=== PATIENT | female | born 1945 | race Caucasian/White ===

== ENCOUNTER 2016-04-23 16:48 | Emergency (ER) | payer OTHER ==
[2016-04-23 17:31] VITALS: BP 155/72
[2016-04-23] MEDS ORDERED: PHENERGAN IM ONE (18:25)
[2016-04-23] MEDS ORDERED: NUBAIN IM ONE (18:25)
--- NOTE | 2016-04-23 18:26 | PROVIDER DOCUMENTATION ---
HPI-Headache - General Chief Complaint: Headache Stated Complaint: HEADACHE Time Seen by Provider: 04/23/16 18:17 Source: patient Allergies/Adverse Reactions: Patient Allergies Allergy/AdvReac Type Severity Reaction Status Date / Time butorphanol tartrate * Allergy Severe SHORTNESS Verified 04/23/16 17:30 [From Stadol] OF BREATH prochlorperazine edisylate * Allergy Severe SHORTNESS Verified 04/23/16 17:30 [From Compazine] OF BREATH prochlorperazine maleate * Allergy Severe SHORTNESS Verified 04/23/16 17:30 [From Compazine] OF BREATH codeine [Codeine] Allergy Intermediate HIVES Verified 04/23/16 17:30 ondansetron [From ZOFRAN ODT] Allergy Mild VOMITING Verified 04/23/16 17:30 ketorolac tromethamine * Allergy SWELLING Verified 04/23/16 17:30 [From Toradol] sulfamethoxazole Allergy NAUSEA/VOMI Verified 04/23/16 17:30 [From Bactrim] TING trimethoprim [From Bactrim] Allergy NAUSEA/VOMI Verified 04/23/16 17:30 TING Home Medications: Alprazolam [Xanax] 1 mg PO PRN PRN 12/16/11 Amlodipine Besylate [Norvasc] 10 mg PO DAILY 12/16/11 Calcium Carbonate [Calcium] 600 mg PO BID 12/16/11 Folic Acid 1 mg PO DAILY 12/16/11 Furosemide [Lasix] 40 mg PO DAILY 12/16/11 Levothyroxine Sodium 75 microgm PO DAILY 12/16/11 Magnesium 500 mg PO BID 12/16/11 Naratriptan HCl [Amerge] 2.5 mg PO PRN PRN 12/16/11 Sumatriptan Succinate [Imitrex] 6 mg SQ PRN PRN 12/16/11 Zonisamide [Zonegran] 300 mg PO BID 12/16/11 Aspirin/Calcium Carbonate/Mag [Aspirin Buffered 325 mg Tab] 325 mg PO DAILY Lisinopril 40 mg PO DAILY 08/04/12 Pioglitazone [Actos] 30 mg PO DAILY 10/28/12 Tizanidine HCl [Zanaflex] 4 mg PO HS 09/19/13 Cholecalciferol (Vitamin D3) [Vitamin D3] 2,000 unit PO DAILY 05/09/14 Diazepam [Valium] 2 mg PO TID 11/13/14 Sertraline HCl [Zoloft] 100 mg PO DAILY 03/18/15 Gabapentin 600 mg PO TID 10/03/15 Multivitamins/Minerals [Centrum Silver] 1 each PO DAILY 10/03/15 Lansoprazole [Prevacid] 30 mg PO DAILY 11/07/15 Sitagliptin Phos/Metformin HCl [Janumet Xr 50-1,000 mg Tablet] 1 tab PO BID - History of Present Illness-Headache Nature of Presenting Problem: Pt is a 71 y/o w female c chief complaint of migraine headache x 1 day. Pt states she has a long h/o migraine headaches and is followed by neurology at [facility]. Pt denies any new or different headache symptoms. Pt denies any facial droop, slurred speech, change in coordination. On arrival, pt is in no distress. Review of Systems - Adult - REVIEW OF SYSTEMS - ADULT Constitutional: reports: no symptoms reported. denies: chills, fatique Eyes: reports: no symptoms reported. denies: blurred vision, double vision Ears, Nose, Mouth & Throat: reports: no symptoms reported. denies: ear pain, nose pain Cardiovascular: reports: no symptoms reported. denies: chest pain, orthopnea Respiratory: reports: no symptoms reported. denies: cough, shortness of breath Gastrointestinal: reports: no symptoms reported. denies: abdominal pain, nausea Genitourinary: reports: no symptoms reported. denies: dysuria, hematuria Musculoskeletal: reports: no symptoms reported. denies: bone pain, joint pain, joint swelling Integumentary: reports: no symptoms reported. denies: itching, rash Neurological: reports: headache/migraines. denies: numbness, paresthesia Psychiatric: reports: no symptoms reported. denies: anxiety, emotional problems Endocrine: reports: no symptoms reported. denies: cold intolerance, heat intolerance Hematologic/Lymphatic: reports: no symptoms reported. denies: blood clots, low blood count Allergic/Immunologic: reports: no symptoms reported. denies: allergic reactions , food allergy All Other Systems: Reviewed and Negative Past History - Adult - PAST MEDICAL HISTORY-ADULT Review of Records: reports: Old Records Reviewed, Nursing Assessment Review, Medications Reviewed, Social history reviewed & non-contributory. Major Childhood Illnesses: reports: denies history Cardiovascular: reports: HTN, hyperlipidemia Respiratory: reports: denies history Gastrointestinal: reports: denies history Obstetrical/Gynecological: reports: denies history Genitourinary: reports: denies history Musculoskeletal: reports: denies history Neurological: reports: headaches/migraines, Seizures/Epilepsy Endocrine/Immune: reports: Diabetes, thyroid disorder Other Conditions: reports: denies history Additional History: Frequent visits to the Er for migraines - PRIOR SURGERIES/PROCEDURES Surgical/Procedure History: reports: appendectomy, hysterectomy, joint replacement, other (VSN stimulation ) - IMMUNIZATION STATUS Childhood Immunizations: See Nurse Assessment Flu Vaccine: See Nurse Assessment - FAMILY HISTORY Family History: reviewed, not pertinent - SOCIAL HISTORY Smoking: denies Substance Use: none/never Alcohol Use Frequency: never Living Situation: family Physical Exam- Neurological - Physical Exam-Neuro Initial Vital Signs Reviewed: Yes General Appearance: appears well, alert, no apparent distress Eye Exam: bilateral eye: normal inspection, PERRL, EOMI HENMT: normocephalic/atraumatic, normal ENT inspection, TMs normal, pharynx normal Head Injury: no evidence of injury Neck: non-tender, full range of motion, supple, normal inspection Respiratory: chest non-tender, lungs clear, normal breath sounds, no pleuratic chest pain, no respiratory distress, no accessory muscle use Cardiovascular: normal peripheral pulses, regular rate, rhythm, no edema, no gallop, no JVD, no murmur Abdominal Exam: normal bowel sounds, non tender, soft, no organomegaly, no pulsatile mass Lymphatic: no adenopathy Extremity: normal range of motion, non-tender, normal gait, normal inspection, no pedal edema, no calf tenderness, normal capillary refill, pelvis stable child neurologist Exam: normal hearing, normal speech, PERRL Coordination/Gait: normal finger to nose, normal gait, negative Romberg's sign Motor/Sensory: no motor deficit, no sensory deficit, no pronator drift, negative Babinski's sign Neurologic: child neurologist II-XII nml as tested, no motor/sensory deficits Integumentary: normal color, normal turgor, warm/dry Psych/Mental Status: AL, normal mood/affect, normal thought content, normal thought process, oriented x 3 Progress - PLAN OF CARE/RESULTS Progress/Plan/Lab Results: Orders Category Date Time Status Nalbuphine [Nubain] Med 04/23/16 18:25 Once 10 mg IM NOW ONE Promethazine [Phenergan] Med 04/23/16 18:25 Once 25 mg IM NOW ONE Vital Signs - 24 hr 04/23/16 17:30 Temperature 98.4 F Pulse Rate 66 Respiratory 18 Rate Blood Pressure 155/72 O2 Sat by Pulse 97 Oximetry Departure - Departure Time of Disposition Order: 18:25 DIAGNOSIS: Migraine Qualifiers: Migraine type: unspecified Status migrainosus presence: without status migrainosus Intractability: not intractable Qualified Code(s): G43.909 - Migraine, unspecified, not intractable, without status migrainosus Chronic headaches Qualifiers: Headache type: unspecified Intractability: not intractable Qualified Code(s): R51 - Headache Disposition: HOME 01 Certified Medical Emergency: Emergent Condition: Stable Additional Instructions: FOLLOW UP WITH YOUR NEUROLOGIST. ED Follow Up Instructions: You have been treated by a care provider in the Emergency Department. These instructions are being provided to you so you can have an understanding of how to care for yourself upon discharge. Upon discharge from the Emergency Department, you are responsible for making arrangements for follow-up care by a physician of your choice. Take all prescribed medications as directed. Return to the Emergency Department immediately for any new or worsening symptoms. You may call the Physician Referral phone number at [phone] to obtain a list of Physicians who are taking new patients. Attestation - Physician/ Mid-level Attestation Patient care was provided by Mid-level provider (BOTTOM BUFFER/PA):: Yes Mid-level provider:: Nolan Faith Mid-level documentation review:: The Mid-level provider documentation, treatment plan and medical decision making was reviewed by the physician who agrees with all treatment and medical decision making by the [facility].
== END 2016-04-23 18:40 | disposition home or self-care (01) ==
LOC: P.ED 16:48
DX: G43.909 Migraine, unspecified, not intractable, without status migrainosus (principal); R51 Headache; G89.29 Other chronic pain; I10 Essential (primary) hypertension; E78.5 Hyperlipidemia, unspecified; E11.9 Type 2 diabetes mellitus without complications; Z79.82 Long term (current) use of aspirin; Z79.899 Other long term (current) drug therapy; Z96.60 Presence of unspecified orthopedic joint implant
CPT/HCPCS: 96372; J2300; J2550

== ENCOUNTER 2018-07-09 08:52 | Day surgery (SDC) ==
--- NOTE | 2018-06-25 17:26 | EKG Report ---
Test Performed on : 06/25/2018 5:20:22 PM Test Reason : PAT Blood Pressure : / mmHG Vent. Rate : 093 BPM Atrial Rate : 093 BPM P-R Int : 188 ms QRS Dur : 088 ms QT Int : 384 ms P-R-T Axes : 012 007 045 degrees QTc Int : 477 ms Normal sinus rhythm. Normal ECG When compared with ECG of 29-MAR-2018 06:31, premature atrial complexes. are no longer present Nonspecific T wave abnormality no longer evident in Anterior leads Unconfirmed Result
[2018-06-25 17:37] LABS: URINE SOURCE CLEAN CATCH
[2018-06-25 17:39] LABS: BASO# 0.03 X1000 (0.0-0.2); BASO% 0.2 % (0.0-0.8); EOS# 0.45 X1000 (0.0-0.7); EOS% 3.7 % (0.0-10.0); HEMOGLOBIN 11.9 g/dL (12.0-16.0); IMM GRAN# 0.03 X1000 (0.0-0.04); IMM GRAN% 0.2 % (0.0-0.5); LYMPH# 3.21 X1000 (1.2-3.4); LYMPH% 26.5 % (20.5-51.1); MCH 26.2 PG (27-31); MCHC 31.3 g/dL (33-37); MCV 83.7 FL (81-99); MONO# 1.04 X1000 (0.11-0.59); MONO% 8.6 % (1.7-9.3); NEUT# 7.34 X1000 (1.4-6.5); NEUT% 60.8 % (42.2-75.2); PLT 329 X1000 (130-400); RBC 4.54 XMIL (4.2-5.4)
[2018-06-25 17:46] LABS: INR 1.02; PROTIME 14.2 Seconds (11.0-16.0)
[2018-06-25 17:47] LABS: PTT 26.1 Seconds (22.3-41.8)
[2018-06-25 18:02] LABS: CALCIUM 9.7 mg/dL (8.8-10.2); CREATININE 1.1 mg/dL (0.5-0.9); POTASSIUM 3.8 mmol/L (3.5-5.1)
[2018-06-25 18:07] LABS: BILIRUBIN URINE NEGATIVE (NEGATIVE); BLOOD URINE NEGATIVE (NEGATIVE); COLOR ORANGE; GLUCOSE URINE NEGATIVE (NEGATIVE); KETONE URINE NEGATIVE (NEGATIVE); LEUKOCYTES URINE LARGE (NEGATIVE); NITRITE URINE NEGATIVE (NEGATIVE); PH URINE 5.5; PROTEIN URINE 50 mg/dL (NEGATIVE); SP GRAVITY URINE 1.001; TURBIDITY URINE TURBID (CLEAR); UROBILINOGEN URINE NORMAL (NORMAL)
[2018-06-25 18:09] LABS: UR EPITHELIAL CELLS >10 /HPF (<10); URINE BACTERIA 4+ /HPF; URINE RBC <10 /HPF (<10); URINE WBC TNTC /HPF (<10)
[2018-07-09] MEDS ORDERED: COLACE ONE (09:06)
[2018-07-09] MEDS ORDERED: PEPCID ONE (09:06)
[2018-07-09] MEDS ORDERED: REGLAN ONE (09:07)
[2018-07-09] MEDS ORDERED: LR 1,000 ML ONE (09:07)
[2018-07-09] MEDS ORDERED: LYRICA ONE (09:07)
[2018-07-09] MEDS ORDERED: KEFZOL 2 GM/D5W 2 GM/50 ML IVPB ONE (09:07)
[2018-07-09] MEDS ORDERED: VANCOMYCIN ONE (09:12)
[2018-07-09] MEDS ORDERED: DURAMORPH ONE (09:12)
[2018-07-09] MEDS ORDERED: TORADOL ONE (09:12)
[2018-07-09] MEDS ORDERED: NEOSPORIN G.U. IRRIGANT ONE (09:13)
[2018-07-09] MEDS ORDERED: SODIUM CHLORIDE 0.9% ONE (09:13)
[2018-07-09] MEDS ORDERED: EXPAREL 1.3% ONE (09:13)
[2018-07-09] MEDS ORDERED: SENSORCAINE-MPF 0.5%/EPI 1:200,000 ONE (09:13)
[2018-07-09] MEDS ORDERED: CYKLOKAPRON 1,000 MG/NS 2,000 MG/200 ML IVPB ONE (09:13)
[2018-07-09] MEDS ORDERED: XYLOCAINE-MPF 2% ONE (09:23)
[2018-07-09] MEDS ORDERED: FENTANYL ONE (09:23)
[2018-07-09] MEDS ORDERED: DIPRIVAN 1% ONE (09:24)
[2018-07-09] MEDS ORDERED: QUELICIN (DOSE) ONE (09:24)
[2018-07-09 09:48] LABS: HEMATOCRIT 37.6 % (37.0-47.0); HEMOGLOBIN 11.9 g/dL (12.0-16.0); MCH 25.9 PG (27-31); MCHC 31.6 g/dL (33-37); MCV 81.7 FL (81-99); MPV 10.2 FL (7.4-10.4); RBC 4.6 XMIL (4.2-5.4); RDW 16.3 % (11.5-14.5); WBC 7.13 X1000 (4.8-10.8)
[2018-07-09] MEDS ORDERED: DECADRON ONE (10:18)
[2018-07-09] MEDS ORDERED: OFIRMEV 1000 MG/ISOTONIC SOLN 1,000 MG/100 ML BOTTLE ONE (10:18)
[2018-07-09] MEDS ORDERED: ZOFRAN ONE (10:18)
[2018-07-09] MEDS ORDERED: ATROPINE ONE (10:59)
[2018-07-09 11:28] LABS: URINE SOURCE CATH
[2018-07-09 11:36] LABS: BILIRUBIN URINE NEGATIVE (NEGATIVE); BLOOD URINE NEGATIVE (NEGATIVE); COLOR YELLOW; GLUCOSE URINE NEGATIVE (NEGATIVE); KETONE URINE NEGATIVE (NEGATIVE); LEUKOCYTES URINE NEGATIVE (NEGATIVE); NITRITE URINE NEGATIVE (NEGATIVE); PH URINE 7.5; PROTEIN URINE TRACE mg/dL (NEGATIVE); SP GRAVITY URINE 1.004; TURBIDITY URINE CLEAR (CLEAR); UROBILINOGEN URINE NORMAL (NORMAL)
[2018-07-09 11:37] LABS: UR EPITHELIAL CELLS <10 /HPF (<10); URINE BACTERIA NEGATIVE /HPF; URINE RBC <10 /HPF (<10); URINE WBC <10 /HPF (<10)
[2018-07-09] MEDS ORDERED: NS 1,000 ML ONE (12:56)
[2018-07-09] MEDS: MORPHINE ONE ×3 (12:56→13:08)
[2018-07-09] MEDS ORDERED: ZOFRAN PO PRN (13:00)
[2018-07-09] MEDS ORDERED: MORPHINE IV PRN ×3 (13:00)
[2018-07-09] MEDS ORDERED: OXY IR ONE (13:25)
--- NOTE | 2018-07-09 13:41 | Diag Imaging Result Doc PS360 ---
EXAM: KNEE 1-2 VIEWS-RIGHT INDICATION: post op total knee TECHNIQUE: 2 views COMPARISON: 03/18/2015 FINDINGS: There has been a recent right knee arthroplasty. The arthroplasty hardware is in the expected position. There is no evidence of periprosthetic fracture. Anterior skin andrew and a drainage catheter are in place. IMPRESSION: Satisfactory postoperative knee. Electronically signed by Nolan Davis 07/09/2018 1:38 PM
[2018-07-09] MEDS: NS 1,000 ML IV SCH (13:55)
[2018-07-09] MEDS: OXY IR PO PRN ×2 (14:22→21:35)
[2018-07-09] MEDS: APRESOLINE PO SCH (16:16)
[2018-07-09] MEDS ORDERED: PHENERGAN IV PRN (16:45)
[2018-07-09] MEDS ORDERED: SODIUM CHLORIDE 0.9% INJ PRN (16:45)
[2018-07-09] MEDS: KEFZOL 2 GM/D5W 2 GM/50 ML IVPB IV SCH (17:06)
--- NOTE | 2018-07-09 19:15 | OPERATIVE NOTE ---
PROCEDURE DATE: 07/09/2018 PREOPERATIVE DIAGNOSIS: Degenerative osteoarthritis of the right knee. POSTOPERATIVE DIAGNOSIS: Degenerative osteoarthritis of the right knee. PROCEDURE: Right total knee arthroplasty with DePuy Attune size 5 posterior stabilized femur, a size 5 tibial tray, a 6 mm rotating platform tibial insert, and a 35 mm medialized anatomic patella. SURGEON: Kirby Kaplan MD. FILLING WINDER: YAS Claudio. SECOND VOICE WRITING REPORTER: Maurilio Giang RN. ANESTHESIA: General. INTRAVENOUS FLUIDS: 1800 mL lactated Ringer's. ESTIMATED BLOOD LOSS: 25 mL. TOURNIQUET TIME: 75 minutes at 300 mmHg. COMPLICATIONS: None. INDICATIONS: The patient is a 73-year-old female with chronic history of pain and discomfort in the right knee. She has continued pain and discomfort despite appropriate nonoperative treatment. X-rays revealed degenerative arthritis, and recommendation to proceed with right total knee arthroplasty was offered. Risks and benefits of surgery were explained, including the risks of anesthesia, , bleeding, infection, failure to relieve pain, postoperative stiffness, nerve injury, blood clots, and other imponderables. All questions were answered. The patient and family wished to proceed with surgery. DETAILS OF OPERATION: The patient was taken to the operating room and placed supine on the operating table. Once adequate anesthesia was obtained, the patient's right lower extremity was subsequently prepped and draped in usual sterile fashion. An Esmarch was used to exsanguinate the right lower extremity, and the tourniquet was inflated to 300 mmHg. A standard anterior incision made with a skin knife. Medial and skin envelopes were developed. Standard medial parapatellar arthrotomy was then performed. The patella fat pad was excised. Retractors were then placed. Approximately 1 cm anterior to the PCL insertion, a starting reamer was passed. An intramedullary guide with a distal femoral cutting block was pinned in position. A distal femoral cut was then performed in the standard fashion. The sizing block was placed, and it was determined to be a size 5. Corresponding pins were placed and a size 5 cutting block was pinned in position. Anterior, posterior, and chamfer cuts were then made. Attention was then turned to the proximal tibia where, using the extramedullary guide, the proximal tibia cutting block was pinned in position. This followed by a central reamer and a fin punch. After this had been performed, a box cutting guide was placed on the distal femur. A box cut was performed. The trial femoral component was then placed, and 2 lug holes were drilled. A trial tibial insert was then placed and had good soft tissue balancing. The patella was everted and resected in the standard fashion. A size 35 appeared to the correct size. The holes were drilled. A trial patellar component was then placed and had good patellofemoral tracking. After this had been performed, the trial components were removed. The wound was copiously with antibiotic pulsatile lavage while vancomycin was mixed with cement on the back table. Sequential cementing was then performed, first with the tibial tray and excess cement removed with a Keasbey, followed by the femoral component and excess cement removed with a Keasbey, followed by a trial tibial insert in full extension. Axial loading was maintained while cement cured. Peripheral cement was removed with a small osteotome. While the cement was curing, Exparel was placed in the deep soft tissue as well as the subcutaneous tissue. After the cement had cured, peripheral cement was removed with a small osteotome. The 6 mm rotating platform tibial insert appeared to the correct size. While removing the trial insert, Exparel was placed in the deep posterior capsule. The wound was copiously irrigated once again, and a 6 mm rotating platform tibial insert was then placed and had good soft tissue balance, good range of motion, and good patellofemoral tracking. A 1/8-inch Hemovac drain was placed but was not sewn in. Copious irrigation was then performed again with antibiotic pulsatile lavage. Vicryl #1 was used to repair the arthrotomy, followed by 2-0 Vicryl to repair the subcutaneous tissue, and skin andrew. Adaptic, sterile 4 x 4's, ABD pad, Webril, cryo unit, and Eduardo wrap were applied to the right lower extremity. The patient tolerated the procedure well and was transferred to the recovery room in stable condition. cc: iKrby Kaplan MD
[2018-07-09] MEDS ORDERED: PRAVACHOL PO SCH (21:00)
[2018-07-09] MEDS: PERIDEX MT SCH (21:36)
[2018-07-09] MEDS: GLUCOPHAGE XR PO SCH (21:36)
[2018-07-10] MEDS: NS 1,000 ML IV SCH (01:51)
[2018-07-10] MEDS: KEFZOL 2 GM/D5W 2 GM/50 ML IVPB IV SCH (01:51)
[2018-07-10] MEDS ORDERED: XARELTO PO SCH (06:00)
--- NOTE | 2018-07-10 06:31 | PROGRESS NOTE ---
DATE: 07/10/2018 SUBJECTIVE: The patient is a pleasant, 73-year-old female who is 1 day status post right total knee arthroplasty. She is currently resting comfortably. PHYSICAL EXAMINATION: The patient's right lower extremity wound looks good. There is no signs or symptoms of infection. Calf is soft. She has active dorsiflexion plantar flexion. She is neurovascularly intact distally. LABS: Pending. IMPRESSION: Postoperative day #1 status post right total knee arthroplasty. PLAN: At this point, patient will mobile mobilize with physical therapy and plan on discharging home when she is mobilizing well. cc: Kirby Kaplan MD
[2018-07-10 06:38] LABS: CALCIUM 8.2 mg/dL (8.8-10.2); POTASSIUM 3.9 mmol/L (3.5-5.1)
[2018-07-10] MEDS: OXY IR PO PRN ×3 (07:06→14:14)
[2018-07-10 07:51] LABS: HEMATOCRIT 31.2 % (37.0-47.0); HEMOGLOBIN 9.6 g/dL (12.0-16.0)
[2018-07-10] MEDS ORDERED: SYNTHROID PO SCH (09:00)
[2018-07-10] MEDS ORDERED: NORVASC PO SCH (09:00)
[2018-07-10] MEDS ORDERED: PRINIVIL PO SCH (09:00)
[2018-07-10] MEDS ORDERED: LASIX PO SCH (09:00)
[2018-07-10] MEDS ORDERED: ZOLOFT PO SCH (09:00)
[2018-07-10] MEDS ORDERED: XANAX PO SCH (09:00)
[2018-07-10] MEDS: PERIDEX MT SCH (10:19)
[2018-07-10] MEDS: GLUCOPHAGE XR PO SCH (10:19)
[2018-07-10] MEDS: APRESOLINE PO SCH (10:19)
[2018-07-10 12:10] VITALS: BP 171/53
[2018-07-10] MEDS ORDERED: APRESOLINE PO SCH (15:00)
== END 2018-07-10 15:02 | disposition home health service (06) ==
LOC: OR 08:52 → INTOOBSV 11:19 → DIRADM 11:19 → 4N 11:21 → OR 07-10 15:02
PROVIDERS: ATTEND Orthopaedic Surgery Adult Reconstructive Orthopaedic Surgery
CPT/HCPCS: 73560; 80048; 81001; 82948; 85014; 85018; 85025; 85027; 85610; 85730; 86850; 86900; 86901; 88305; 88311; 93005; 93010; 94760; 94799; 97116; 97162; A9270; C9290; J0131; J0330; J0461; J0690; J1100; J1885; J2270; J2274; J2275; J2405; J3010; J3370; J7030; J7120; Q9974; XXXXX

== ENCOUNTER 2018-10-24 07:46 | Inpatient (IN) ==
[2018-10-24 08:12] LABS: BLOOD TYPE ARTERIAL; SAMPLE BLOOD
[2018-10-24] MEDS ORDERED: LEVOPHED 8 MG in D5 1/2 NS 250 ML IV SCH (08:15)
[2018-10-24 08:24] LABS: BASO# 0.02 X1000 (0.0-0.2); BASO% 0.3 % (0.0-0.8); EOS# 0.18 X1000 (0.0-0.7); EOS% 2.3 % (0.0-10.0); HEMATOCRIT 25.7 % (37.0-47.0); IMM GRAN# 0.04 X1000 (0.0-0.04); IMM GRAN% 0.5 % (0.0-0.5); LYMPH% 23.5 % (20.5-51.1); MCH 25.2 PG (27-31); MCHC 31.1 g/dL (33-37); MCV 80.8 FL (81-99); MONO# 0.64 X1000 (0.11-0.59); MONO% 8.4 % (1.7-9.3); MPV 10.6 FL (7.4-10.4); NEUT# 4.98 X1000 (1.4-6.5); PLT 196 X1000 (130-400); RBC 3.18 XMIL (4.2-5.4); RDW 16.7 % (11.5-14.5); WBC 7.66 X1000 (4.8-10.8)
[2018-10-24] MEDS ORDERED: DOPAMINE 800 MG/D5W 800 MG/250 ML IV.SOLN IV SCH (08:35)
[2018-10-24] MEDS ORDERED: DOPAMINE 800 MG/D5W 800 MG/250 ML IV.SOLN ONE (08:35)
[2018-10-24 08:45] LABS: AGAP 10; ALBUMIN 3.2 g/dL (3.5-5.0); ALKALINE PHOSPHATASE 52 U/L (32-104); BUN 42 mg/dL (8-22); CALCIUM 8.1 mg/dL (8.8-10.2); CHLORIDE 107 mmol/L (98-107); CK PROFILE 72 U/L (24-173); COSMO 294; CREATININE 1.2 mg/dL (0.5-0.9); ESTIMATED GFR 44; GLUCOSE 268 mg/dL (70-104); GOT 19 U/L (10-30); GPT 12 U/L (10-36); POTASSIUM 4.6 mmol/L (3.5-5.1); SODIUM 137 mmol/L (136-145); TCO2 20 mmol/L (25-35); TOTAL BILIRUBIN < 0.15 mg/dL (0.20-1.00); TOTAL PROTEIN 6.1 g/dL (6.3-8.3)
--- NOTE | 2018-10-24 09:51 | Diag Imaging Result Doc PS360 ---
EXAM: CHEST-1 VIEW - 10/24/2018 HISTORY: AMS TECHNIQUE: One view chest COMPARISON: 05/19/2018 FINDINGS: Heart size appears the upper range of normal. There are stable right lower lung granuloma from old granulomatous disease. The lungs otherwise appear grossly clear. There is no substantial pleural effusion or pneumothorax identified. IMPRESSION: No discrete evidence of acute disease. Electronically signed by Enoch Sommers 10/24/2018 9:49 AM
--- NOTE | 2018-10-24 09:55 | Diag Imaging Result Doc PS360 ---
EXAM: CT HEAD W/O CONTRAST - 10/24/2018 HISTORY: ams TECHNIQUE: CT head without contrast COMPARISON: 03/02/2018 FINDINGS: There is no evidence of intracranial hemorrhage, mass effect, midline shift, or hydrocephalus. There is no evidence of infarct, although acute infarcts may not be immediately visible. There is no evidence of skull fracture. There is scattered mild paranasal sinus mucosal thickening noted. IMPRESSION: No visible acute intracranial abnormality. No hemorrhage or mass effect. This exam was performed using automated exposure control, adjustment of mA or kV according to patient size, and/or use of iterative reconstruction technique. Electronically signed by Enoch Sommers 10/24/2018 9:53 AM
[2018-10-24 11:11] LABS: BILIRUBIN URINE NEGATIVE (NEGATIVE); BLOOD URINE NEGATIVE (NEGATIVE); CLARITY CLEAR (CLEAR); COLOR YELLOW; GLUCOSE URINE NEGATIVE (NEGATIVE); KETONE URINE NEGATIVE (NEGATIVE); LEUKOCYTES URINE NEGATIVE (NEGATIVE); NITRITE URINE NEGATIVE (NEGATIVE); PH URINE 6.5; UROBILINOGEN URINE NORMAL
[2018-10-24 11:14] LABS: URINE BACTERIA 1+ /HFP; URINE CAST WHITE CELL PRESENT /LPF; URINE CRYSTAL NONE SEEN /HPF; URINE EPITHELIAL CELLS >10 /HPF (<10); URINE RBC <10 /HPF (<10); URINE SOURCE CATH; URINE YEAST NONE SEEN /HPF
[2018-10-24 11:21] LABS: UR AMPHETAMINES QUAL NONE DETECTED (NONE DETECT); UR BARBITUATES QUAL NONE DETECTED (NONE DETECT); UR BENZODIAZEPIN QUAL PRESUMPTIVE POSITIVE (NONE DETECT); UR CANNABINOIDS QUAL NONE DETECTED (NONE DETECT); UR COCAINE QUAL NONE DETECTED (NONE DETECT); UR METHADONE QUAL NONE DETECTED (NONE DETECT); UR METHAMPHETAMINE QUAL NONE DETECTED (NONE DETECT); UR OPIATES QUAL NONE DETECTED (NONE DETECT); UR OXYCODONE QUAL NONE DETECTED (NONE DETECT); UR PCP QUAL NONE DETECTED (NONE DETECT); UR PROPOXYPHENE QUAL NONE DETECTED (NONE DETECT); UR TCA QUAL NONE DETECTED (NONE DETECT)
[2018-10-24 11:37] LABS: OCCULT BLOOD 1 NEGATIVE (NEGATIVE)
--- NOTE | 2018-10-24 12:23 | PROVIDER DOCUMENTATION ---
This chart was entered by Beth Blackman Scribe, acting as scribe for Vivek Yang MD. HPI-General Adult - General Chief Complaint: Altered Mental Status Stated Complaint: BRADYCARDIA Time Seen by Provider: 10/24/18 07:46 Source: patient, family (), EMS ([facility]) Unable to obtain history due to:: altered Allergies/Adverse Reactions: Patient Allergies Allergy/AdvReac Type Severity Reaction Status Date / Time butorphanol tartrate * Allergy Severe SHORTNESS Verified 07/15/18 13:48 [From Stadol] OF BREATH prochlorperazine edisylate * Allergy Severe SHORTNESS Verified 07/15/18 13:48 [From Compazine] OF BREATH prochlorperazine maleate * Allergy Severe SHORTNESS Verified 07/15/18 13:48 [From Compazine] OF BREATH codeine [Codeine] Allergy Intermediate HIVES Verified 07/15/18 13:48 ondansetron [From ZOFRAN ODT] Allergy Mild VOMITING Verified 07/15/18 13:48 acetaminophen [From Fioricet] Allergy CHEST PAIN Verified 07/15/18 13:48 butalbital [From Fioricet] Allergy CHEST PAIN Verified 07/15/18 13:48 caffeine [From Fioricet] Allergy CHEST PAIN Verified 07/15/18 13:48 ketorolac tromethamine * Allergy SWELLING Verified 07/15/18 13:48 [From Toradol] sulfamethoxazole Allergy NAUSEA/VOMI Verified 07/15/18 13:48 [From Bactrim] TING trimethoprim [From Bactrim] Allergy NAUSEA/VOMI Verified 07/15/18 13:48 TING Home Medications: Home Medication List Medication Instructions Recorded Confirmed Last Taken Type Alprazolam [Xanax] 1 mg PO DAILY 12/16/11 10/24/18 06/29/18 History Amlodipine Besylate [Norvasc] 10 mg PO DAILY 12/16/11 10/24/18 07/08/18 10:00 History Levothyroxine Sodium 75 microgm PO DAILY 12/16/11 10/24/18 07/08/18 10:00 History Zonisamide [Zonegran] 2 cap PO DAILY 12/16/11 10/24/18 07/08/18 18:00 History Aspirin/Calcium Carbonate/Mag 325 mg PO DAILY 08/04/12 10/24/18 06/29/18 History [Aspirin Buffered 325 mg Tab] Lisinopril 40 mg PO DAILY 08/04/12 10/24/18 07/08/18 10:00 History Hydralazine [Apresoline] 50 mg PO TID 01/03/17 10/24/18 07/08/18 18:00 History Furosemide [Lasix] 40 mg PO DAILY 03/29/18 10/24/18 07/08/18 10:00 History PRAVAstatin [Pravachol] 40 mg PO HS 03/29/18 10/24/18 07/08/18 18:00 History Sertraline HCl [Zoloft] 100 mg PO DAILY 03/29/18 10/24/18 07/08/18 10:00 History Metformin HCl [Metformin ER 500 mg PO BID 07/08/18 10/24/18 07/08/18 15:00 History Osmotic] Multivitamin [Multivitamins] 1 dose PO DAILY 07/08/18 10/24/18 07/08/18 10:00 History Oxycodone I.r. [Oxy Ir] 5 mg PO Q4-6H PRN PRN #40 cap 07/10/18 10/24/18 Unknown Rx Rivaroxaban [Xarelto] 10 mg PO DAILY #10 tab 07/10/18 10/24/18 Unknown Rx - History of Present Illness -Gen Adult Nature of Presenting Problems: 73 yowf presents to the ed via ems hypotensive, lethargic, altered and bradycardiac. per ems pt was called in unresponsive to 911 by . ems aos pt had BP-85/42 HR-34 [id number]. ems sts pacing given atropine 1mg NS 1 liter and started another 500cc. when pt came in ed at 0746 dr yang and nurse met ems at bedside with pt. spoke with dr yang and sts pt around 2200 last night got in her computer chair and started watching tv, asked when she was going to bed and her reply "in a while", pt went to bed. he got up to check on her at 1200am and pt was still watching tv and told him "im going to knock you out if you ask me again" then went back to bed. pt sts "a few hrs later I got up to check on her and she was asleep in the computer chair, when I tried to wake her up she would not wake up" sts he tried for almost 5 hrs to wake her up and he could not get her to respond. pt sts "I knew she would fuss at me so I was not wanting to make her mad" pt called 911 after not getting her to respond. sts pt has not complined of any pain or any issues recently and has been acting her normal self ED pt responds to painful stimuli and is slow to answer but answers correctly when she wakes up. pt was incontinent of feces on exam and has a BP 109/53 off the pacer. HR-42. pt arrived in ed covered in feces and bed bugs. pt is unkempt and has foul odor to her. Location of Pain/Injury: reports: none Pain Radiation: reports: no radiation Quality of Pain: reports: none Severity: reports: severe Onset/Duration: reports: this morning (early hrs unsure exact time) Timing: reports: still present, constant Context/Activities at Onset: reports: light activity Modifying Factors: improves with: nothing Associated Symptoms: reports: diarrhea, genitourinary problems, syncope, weakness. denies: back/neck pain, chest pain, cough, fever/chills, nausea, seizure, shortness of breath, vomiting Similar Symptoms Previously?: No Recently seen or treated by another doctor?: No - Diabetes Related Context Context: reports: high blood sugar (359) Review of Systems - Adult - REVIEW OF SYSTEMS - ADULT ROS:: ROS per family Constitutional: denies: chills, fever Eyes: reports: no symptoms reported Ears, Nose, Mouth & Throat: reports: no symptoms reported Cardiovascular: reports: see HPI, syncope. denies: chest pain Respiratory: denies: shortness of breath, wheezing Gastrointestinal: reports: see HPI, diarrhea. denies: nausea, vomiting Genitourinary: reports: see HPI, incontinence Musculoskeletal: reports: no symptoms reported Integumentary: reports: no symptoms reported Neurological: reports: tremors. denies: ataxia, dizziness/vertigo, headache/migraines, slurred speech Psychiatric: reports: no symptoms reported Endocrine: reports: no symptoms reported Hematologic/Lymphatic: reports: no symptoms reported Allergic/Immunologic: reports: no symptoms reported All Other Systems: Reviewed and Negative Past History - Adult - PAST MEDICAL HISTORY-ADULT Review of Records: reports: Old Records Reviewed, Nursing Assessment Review, Medications Reviewed, Social history reviewed & non-contributory. Major Childhood Illnesses: reports: denies history Cardiovascular: reports: HTN, hyperlipidemia Respiratory: reports: denies history Gastrointestinal: reports: denies history Obstetrical/Gynecological: reports: denies history Genitourinary: reports: denies history Musculoskeletal: reports: chronic pain, intervertebral disc disease, neck/back injury Neurological: reports: headaches/migraines, Seizures/Epilepsy Endocrine/Immune: reports: Diabetes, thyroid disorder Other Conditions: reports: denies history Additional History: Frequent visits to the Er for migraines - PRIOR SURGERIES/PROCEDURES Surgical/Procedure History: reports: appendectomy, hysterectomy, joint replacement, other (VSN stimulation ) - IMMUNIZATION STATUS Childhood Immunizations: See Nurse Assessment Flu Vaccine: See Nurse Assessment - FAMILY HISTORY Family History: reviewed, not pertinent - SOCIAL HISTORY Smoking: quit greater than 1 year Substance Use: denies Living Situation: family Physical Exam-General - PHYSICAL EXAM-ADULT Exam Limited by: pt is lethargic and slow to answer Initial Vital Signs Reviewed: Yes (critical) - CONSTITUTIONAL General Appearance: moderate distress, obese, lethargic, slow to respond - EYES Eyes: other (pupils are reactive mid point, pt received Narcan with no impr ovement) - HEAD, EARS, NOSE, MOUTH & THROAT HENMT: negative: moist mucous membranes (dry oral) - NECK Neck: normal inspection - RESPIRATORY Respiratory: chest non-tender, lungs clear, normal breath sounds - CARDIOVASCULAR Cardiovascular: bradycardia (35) - CHEST (BREASTS) Chest/Breast: deferred - GASTROINTESTINAL (ABDOMEN) Abdominal Exam: soft - LYMPHATIC Lymphatic: no adenopathy - MUSCULOSKELETAL Extremity: swelling (BLE edema) - SKIN Integumentary: pallor - PSYCHIATRIC Psych/Mental Status: other (lethargic and slow to answer but when pt answers it is correct answers) Progress - PLAN OF CARE/RESULTS Progress/Plan/Lab Results: Vital Signs - 8 hr 10/24/18 07:45 Pulse Rate 35 L Respiratory Rate 16 Blood Pressure 79/66 O2 Sat by Pulse Oximetry 100 Laboratory Results - last 24 hr 10/24/18 10/24/18 10/24/18 08:20 08:20 08:20 WBC 7.66 RBC 3.18 L Hgb 8.0 L Hct 25.7 L MCV 80.8 L MCH 25.2 L MCHC 31.1 L RDW Std Deviation 16.7 H Plt Count 196 MPV 10.6 H Immature Gran % (Auto) 0.5 Neut % (Auto) 65.0 Lymph % (Auto) 23.5 [place] % (Auto) 8.4 Eos % (Auto) 2.3 Baso % (Auto) 0.3 Immature Gran # (Auto) 0.04 Neut # (Auto) 4.98 Lymph # (Auto) 1.80 [place] # (Auto) 0.64 H Eos # (Auto) 0.18 Baso # (Auto) 0.02 Sodium 137 Potassium 4.6 Chloride 107 Carbon Dioxide 20 L Anion Gap 10 BUN 42 H Creatinine 1.2 H Estimated GFR/1.73 m2 44 BUN/Creatinine Ratio 35 Glucose 268 H Calculated Osmolality 294 Calcium 8.1 L Total Bilirubin < 0.15 L AST 19 ALT 12 Alkaline Phosphatase 52 Creatine Kinase 72 Troponin T < 0.010 Total Protein 6.1 L Albumin 3.2 L Globulin 3.0 Albumin/Globulin Ratio 1.0 TSH 10/24/18 08:20 WBC RBC Hgb Hct MCV MCH MCHC RDW Std Deviation Plt Count MPV Immature Gran % (Auto) Neut % (Auto) Lymph % (Auto) [place] % (Auto) Eos % (Auto) Baso % (Auto) Immature Gran # (Auto) Neut # (Auto) Lymph # (Auto) [place] # (Auto) Eos # (Auto) Baso # (Auto) Sodium Potassium Chloride Carbon Dioxide Anion Gap BUN Creatinine Estimated GFR/1.73 m2 BUN/Creatinine Ratio Glucose Calculated Osmolality Calcium Total Bilirubin AST ALT Alkaline Phosphatase Creatine Kinase Troponin T Total Protein Albumin Globulin Albumin/Globulin Ratio TSH 8.21 H Orders Category Date Time Status ABG [RESP] Routine Lab 10/24/18 07:53 Received CBC WITH ELECTRONIC DIFF [HEME] Stat Lab 10/24/18 08:20 Completed CK PROFILE [SP CHEM] Stat Lab 10/24/18 08:20 Completed COMPREHENSIVE METABOLIC PANEL [CHEM] Stat Lab 10/24/18 08:20 Completed TROPONIN T Stat Lab 10/24/18 08:20 Completed TSH Stat Lab 10/24/18 08:20 Completed Dextrose 5%-0.45% NaCl Inj [D5 1/2 Ns] 250 ml Med 10/24/18 08:15 Active Norepinephrine [Levophed] 8 mg IV As Directed mls/hr Dopamine 800 mg/D5w Med 10/24/18 08:35 Discontinued 800 mg in 250 ml .ROUTE As directed pt pulled off pacer and BP 109/53. pt will go to CT stat 0950am dopamine will be reduced . pt has BP 188/76 in sinus with occasional P waves noted Result Diagrams: 10/24/18 08:20 10/24/18 08:20 - REASSESSMENT Reassessment #1 Time Reassessed: 08:32 (pt remains the same) Status: unchanged Reassessment Comment: dr yang continued to stay at bedside Reassessment #2 Time Reassessed: 09:23 (pt can be woke with painful stimuli then quickly goes back to sleep) Status: unchanged Reassessment Comment: dr yang at bedside Reassessment #3 Time Reassessed: 09:53 (BP 186/71 pt is waking up) Status: improving Reassessment Comment: pt sts she is thirsty and is at bedside/dr yang at bedside Reassessment #4 Time Reassessed: 11:10 (pt is sleeping in bed in no distress at this time. vital are in normal range) Status: unchanged - EKG 1 Time of EKG reading by physician:: 09:15 EKG Read and Signed by:: Vivek Yang EKG Interpretation (*Must complete 3 of following elements*): Abnormal Rate: 44 Rhythm: junctional bradycardia [place]: normal QRS: other (low voltage qrs/prolonged qt) OK Interval: normal ST Wave: normal Comments: T wave abnormality, consider lateral ischemia 2 Time of EKG reading by physician:: 10:05 EKG Read and Signed by:: Vivek Yang EKG Interpretation (*Must complete 3 of following elements*): Normal (borderline) Rate: 79 Rhythm: nsr [place]: normal QRS: other (low voltage QRS) OK Interval: normal ST Wave: normal Prior EKG Comparison: changes noted - XRAY 1 XRAY Study: Chest Impression: See EMR Report (EXAM: CHEST-1 VIEW - 10/24/2018 HISTORY: AMS TECHNIQUE: One view chest COMPARISON: 05/19/2018 FINDINGS: Heart size appears the upper range of normal. There are stable right lower lung granuloma from old granulomatous disease. The lungs otherwise appear grossly clear. There is no substantial pleural effusion or pneumothorax identified. IMPRESSION: No discrete evidence of acute disease. Electronically signed by Enoch Sommers 10/24/2018 9:49 AM 10/24/18 0949 Interpreting Physician: Enoch Sommers MD Dictated Date/Time: 10/24/18 0947 cc: Vivek Yang MD; Gabi Oquendo MD) - CT/MRI 1 CT Study: Head Impression: See EMR Report (EXAM: CT HEAD W/O CONTRAST - 10/24/2018 HISTORY: ams TECHNIQUE: CT head without contrast COMPARISON: 03/02/2018 FINDINGS: There is no evidence of intracranial hemorrhage, mass effect, midline shift, or hydrocephalus. There is no evidence of infarct, although acute infarcts may not be immediately visible. There is no evidence of skull fracture. There is scattered mild paranasal sinus mucosal thickening noted. IMPRESSION: No visible acute intracranial abnormality. No hemorrhage or mass effect. This exam was performed using automated exposure control, adjustment of mA or kV according to patient size, and/or use of iterative reconstruction technique. Electronically signed by Enoch Sommers 10/24/2018 9:53 AM 10/24/18 0953 Interpreting Physician: Enoch Sommers MD Dictated Date/Time: 04/02 0949 cc: Vivek Yang MD; Gabi Oquendo MD) - CONSULTS/PCP/HOSPITALIST Notification #1 *Consult/PCP/Hospitalist*: dr pizano cardiology Time Discussed: 09:08 Reason/Comments: phone consult Consult Disposition: other #2 Consult: dr pizano cardiology Time Discussed: 09:30 (sts to give pt more atropine and pt may can go across town and not go to ) Reason/Comments: phone consult #3 Consult: hospitalist dr mike Time Discussed: 11:47 Consult Disposition: Admit (at [facility]) Departure - Departure Date of Disposition Decision: 10/24/18 Time of Disposition Decision: 12:21 DIAGNOSIS: Hypotension, Bradycardia, Chronic headaches, Altered mental status Disposition: ADMITTED INPATIENT 09 Certified Medical Emergency: Emergent Condition: Stable Referrals and Follow-Ups: Gabi Oquendo MD [Primary Care Provider] - - Critical Care Note This patient required my direct & personal management of CC.: Yes Total Time (mins): 180 Critical Care Statement: This patient required my direct personal management to treat or rule out processes, the absence of which, could potentiallly result in sudden, clinically significant life or limb threatening deterioration. Attestation - Physician/ AMY Attestation Patient care was provided by Advanced Practice Provider:: No The physician spent face to face time with patient:: Yes Advanced Practice Provider documentation review:: Supervising physician onsite and consulted in the evaluation and care of this patient. The physician did have a face to face encounter with the patient. This chart was documented by the indicated scribe, (Beth Blackman Scribe) and accurately reflects the services I performed and decisions made by me, Vivek Yang MD, as attested by the provider's signature.
--- NOTE | 2018-10-24 13:27 | EKG Report ---
Test Performed on : 10/24/2018 10:05:15 AM Test Reason : bradycardia Blood Pressure : / mmHG Vent. Rate : 079 BPM Atrial Rate : 079 BPM P-R Int : 188 ms QRS Dur : 078 ms QT Int : 406 ms P-R-T Axes : 000 040 067 degrees QTc Int : 465 ms Normal sinus rhythm. Low voltage QRS Borderline ECG When compared with ECG of 24-OCT-2018 09:15, (Unconfirmed) Sinus rhythm. has replaced Junctional rhythm. Vent. rate has increased BY 35 BPM T wave inversion no longer evident in Anterolateral leads Unconfirmed Result
[2018-10-24 15:44] LABS: BE -3.8 mmoll (-3.0-3.0); METHB 0.4 % (0.0-1.5); O2(CT) 12.4 mL/dL (15.0-23.0); O2HB 97.5 % (95.0-99.0); PCO2(98.6) 39 mmHg (35-45); PO2(98.6) 294 mmHg (60-100); SAO2 99.1 % (95.0-100.0); THB 8.5 g/dL (11.5-17.4); pH(98.6) 7.35 (7.35-7.45)
[2018-10-24 15:46] LABS: ALLEN TEST YES; MODALITY NRB
--- NOTE | 2018-10-24 16:09 | CARDIOLOGY CONSULTATION ---
DATE: 10/24/2018 HISTORY OF PRESENT ILLNESS: Ms. Jean is a 73-year-old, lady, who was noted to be hypotensive, lethargic, with altered mental status. EMS was called by her . EMS noted that the blood pressure was 85/42, heart rate was 34, junctional. They gave atropine 1 mg and started IV fluids, and patient came to the emergency room. The patient was noted to be hypotensive and had junctional rhythm at 30 to 40 beats per minute. The patient was subsequently started on dopamine drip and transferred to ICU. Patient was somnolent and last night she says she had taken Xanax, and had complained of weakness in the last few months. She has noted some weakness, but no chay syncopal episode. She fell about 3 months back not associated with any dizziness or syncope. She denies chest pain. In the past, she has had junctional rhythm and was evaluated by Electrophysiology in [place]. At that time, she was noted to be bradycardiac with a rate of 41 beats per minute and, after beta-blockers were stopped, the heart rate had come back to 50 beats per minute; this was in 2017. Her last stress test in 2017 was unremarkable. She has been taking her medications for hypertension and seizure disorder. REVIEW OF SYSTEMS: General: A 14-point review of systems was done. GI system: There is no nausea. There is no vomiting or diarrhea. Central nervous system: Complains of generalized weakness. Came in with altered mental status Now she is better, but does not complain of focal weakness. system: There is no dysuria or hematuria. Musculoskeletal system: Stable. PAST MEDICAL HISTORY: 1. 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 2. Hypertension. 3. Hyperlipidemia. 4. History of renal insufficiency. 5. Hypothyroidism. 6. Seizure disorder. 7. Obesity. 8. Sleep apnea. MEDICATIONS: Levothyroxine 0.075, sertraline, pravastatin 40, lisinopril 40 mg a day, hydralazine 50 mg 3 times a day, metformin 850 mg b.i.d., zonisamide and aspirin. PHYSICAL EXAMINATION: Vital Signs: At the time of my examination, blood pressure was 150/70, heart rate 70 in sinus rhythm. Jugular venous pressure was normal. Heart: First and second heart sounds were heard. There was no S3, gallop. Respiratory System: Normal air entry. Distant breath sounds. Abdomen: Soft, nontender. There was no guarding or rigidity. Bowel sounds were heard. Central nervous system: Patient somnolent, was moving extremities normally. LABORATORY EXAMINATION: Revealed WBC 7.6, hemoglobin 8, hematocrit 25, platelet count of 196, MCV was 80. Sodium 137, potassium 4.6. BUN 42, creatinine 1.2. Troponin was normal. CK was normal. RADIOLOGY DATA: Electrocardiogram: The latest one revealed normal sinus rhythm with poor R-wave progression. When she came in, she had junctional rhythm with a rate of 36 beats per minute. ASSESSMENT AND PLAN: 1. Ms. Inessa Jean is a 73-year-old lady with history of diabetes, hypertension, seizure disorder, chronic renal insufficiency, who comes in with complaints of having severe weakness. Was noted to be hypotensive. Was given atropine and started on a dopamine drip. Currently, her blood pressure is normal and she is in sinus rhythm. From a cardiac standpoint, first set of cardiac enzymes are negative. There was no chest pain. We will get an echocardiogram to assess cardiac and valvular function. 2. As far as junctional rhythm is concerned, she had received atropine en route to the hospital, as well as in the emergency room. Once started on dopamine, her blood pressure and heart rate were stable. Her first electrocardiogram was junctional rhythm. She is hypothyroid, but she is on supplements. She was evaluated in 2017 for junctional rhythm. At that time, she was on beta-blockers which were discontinued. We will monitor her and see how her heart rhythm does. She may need to be evaluated again for permanent pacemaker implantation. For the present, we will discontinue the IV dopamine drip. 3. Hypertension. She was hypotensive when she came in. I will not recommend starting any medicines at the present time but in the morning we can start back on her antihypertensive medications of hydralazine and lisinopril at lower dosage. 4. She says she has been taking aspirin. Would recommend continuing with the aspirin. 5. Diabetes. She is on metformin. I have not made any changes. As far as seizure disorder medications are concerned, she is on zonisamide. I would recommend continuing that. 6. She is on pravastatin. I would recommend continuing pravastatin. Her hemoglobin/hematocrit was low with a low MCV. We will get stool occult to make sure there is no obvious bleeding issues. 7. Thyroid. Thyroid stimulating hormone was 8.21. 8. We will see her and evaluate after stopping the dopamine to make sure that she does not go back into having junctional or other dysrhythmias. Thank you for the consult. cc: MD Ranulfo Dimas MD
[2018-10-24] MEDS ORDERED: APRESOLINE PO SCH (17:00)
[2018-10-24] MEDS: APRESOLINE PO SCH (17:40)
[2018-10-24] MEDS: XARELTO PO SCH (17:40)
--- NOTE | 2018-10-24 18:04 | EKG Report ---
Test Performed on : 10/24/2018 09:15:04 AM Test Reason : BRADYCARDIA Blood Pressure : / mmHG Vent. Rate : 044 BPM Atrial Rate : 416 BPM P-R Int : 000 ms QRS Dur : 078 ms QT Int : 554 ms P-R-T Axes : 000 041 110 degrees QTc Int : 473 ms Junctional bradycardia. Low voltage QRS T wave abnormality, consider lateral ischemia Prolonged QT Abnormal ECG When compared with ECG of 24-OCT-2018 07:49, (Unconfirmed) Junctional rhythm. has replaced Atrial fibrillation. QT has lengthened Unconfirmed Result
[2018-10-24] MEDS: GLUCOPHAGE XR PO SCH (20:22)
[2018-10-24] MEDS: PRAVACHOL PO SCH (20:22)
--- NOTE | 2018-10-24 20:25 | ECHO REPORT ---
ORDER DATE: 10/24/2018 INTERPRETING PHYSICIAN: Truong Walton MD. INDICATION: Bradyarrhythmia, hypotension. PROCEDURE: Echocardiogram. The study was done with additional Optison to visualize the endocardium better. M-MODE MEASUREMENTS: Left ventricle end diastole: 4.5 cm. Left ventricle end systole: 2.9 cm. Posterior wall: 1.3 cm. Interventricular septum: 1.3 cm. Left atrium: 4.1 cm. Aortic root: 2.6 cm. SUMMARY OF 2-DIMENSIONAL IMAGIN. The left ventricular function is normal. Ejection fraction is 65%. No wall motion abnormalities noted. 2. Right ventricle is normal. 3. The aortic valve looks normal. Color flow mapping is unremarkable. 4. Pulmonic valve looks normal. Color flow mapping unremarkable. 5. Tricuspid valve looks normal. Color flow mapping unremarkable. 6. Pulmonary pressure is estimated at 52 mmHg. 7. Mitral valve shows normal opening. 8. Pulse wave Doppler of mitral valve shows normal E/A ratio. 9. Tissue Doppler of septal and lateral mitral annulus is 8 cm. 10.There is no diastolic dysfunction. 11.There is a mild degree of mitral regurgitation. 12.There is no pericardial effusion, mass or thrombus. cc: MD Ranulfo Pichardo MD [facility]
--- NOTE | 2018-10-25 05:49 | EKG Report ---
Test Performed on : 10/25/2018 05:12:55 AM Test Reason : bradycardia Blood Pressure : / mmHG Vent. Rate : 088 BPM Atrial Rate : 088 BPM P-R Int : 200 ms QRS Dur : 080 ms QT Int : 390 ms P-R-T Axes : 028 032 045 degrees QTc Int : 471 ms Normal sinus rhythm. Possible Anterior infarct , age undetermined Abnormal ECG When compared with ECG of 24-OCT-2018 10:05, (Unconfirmed) No significant change was found Unconfirmed Result
[2018-10-25] MEDS: SYNTHROID PO SCH (06:55)
[2018-10-25] MEDS: GLUCOPHAGE XR PO SCH ×2 (08:39→21:39)
[2018-10-25] MEDS: APRESOLINE PO SCH ×4 (08:39→17:09)
[2018-10-25] MEDS: ZONEGRAN PO SCH (08:39)
[2018-10-25] MEDS: XARELTO PO SCH (08:39)
[2018-10-25 08:44] LABS: BLOOD TYPE ARTERIAL; SAMPLE BLOOD
--- NOTE | 2018-10-25 11:38 | HISTORY AND PHYSICAL ---
CHIEF COMPLAINT: Altered mental status. HISTORY OF PRESENT ILLNESS: The patient is a 73-year-old female, who presented to the hospital via ambulance service. Her noted that he could not wake her up. She was confused, disoriented. Ambulance had arrived. The patient had become a little more oriented. Blood pressure was still low upon their arrival at 85/42 with a heart rate of 34 and blood sugar elevated at 359. ALLERGIES: Stadol causing shortness of breath, Compazine with shortness of breath, codeine with hives, Zofran with vomiting, Fioricet causes chest pain, Toradol causes swelling, and Bactrim causes nausea and vomiting. MEDICATIONS: Xanax 1 mg, Norvasc 10 mg, Synthroid 75, Zonegran 2 caps daily, lisinopril 40, buffered aspirin, hydralazine 50 t.i.d., Lasix 40, Pravachol 40, Zoloft 100, metformin 500 twice daily, Oxy-IR p.r.n. and Xarelto 10. PAST MEDICAL HISTORY: Hypertension, hypothyroidism, high cholesterol, diabetes, chronic pain, hyperlipidemia, chronic headaches, history of seizures, chronic neck and back pain. SURGICAL HISTORY: Appendectomy, hysterectomy, joint pain. REVIEW OF SYSTEMS: Still effectively unobtainable from Ms. Jean. However, the notes that she was up in her chair last night and in fact was still watching TV at midnight. notes around 5 that he tried to wake her up, and she would not wake up. She was unresponsive. Therefore, he called an ambulance. He denies any known history of fevers, chills. Denies any recent knowledge of cough, congestion, or shortness of breath. States she always has some generalized weakness, always has urinary symptoms with incontinence, but this appears to be worse. FAMILY HISTORY: Noncontributory. SOCIAL HISTORY: She stopped smoking greater than a year ago. She is , is not employed. PHYSICAL EXAMINATION: VITAL SIGNS: Reviewed. She is afebrile. Pulse 35 initially, currently 70s, respiratory 16, BP 70 systolic initially and currently 105 systolic, satting 100% on 2 L. GENERAL: Patient is in moderate distress. Obese female who is very slow to respond. She is more awake and alert than she was upon initial presentation to the ER. HEENT: Normocephalic. Pupils are reactive. She is noted to appear to have intact extraocular eye movements. Mouth with dry mucous membranes. NECK: Supple. No apparent JVD. CV: Bradycardia. No current murmurs. CHEST: Decreased, but equal breath sounds. Appears to have poor inspiratory effort. No wheezing. No crackles. ABDOMEN: Soft, obese, nondistended. EXTREMITIES: She has bilateral lower extremities. She is noted to move all extremities. NEUROLOGIC: Patient does not follow commands. She is lethargic, but she does attempt to answer questions and, when she is able to answer them, they appear to be correct. This has improved from presentation to the ER. SKIN: No rashes. LABS: H and H 8 and 20 with low MCV, MCH. BUN 1.2, glucose 268. ASSESSMENT: 1. Acute metabolic encephalopathy of undetermined origin. 2. Anemia of chronic disease. 3. Diabetes with hyperglycemia. 4. Bradycardia of undetermined origin. She does not appear to be on any rate-controlling drugs. 5. Hypertension. 6. Chronic headaches. 7. Hypothyroidism. 8. History of hypertension. 9. Depression. 10. High cholesterol. PLAN: We will continue patient in the hospital, place her in the ICU. Continue her Zonegran and her diabetic control. We will hold her blood pressure medications and control blood pressures if more stable., cardiology has been consulted, evaluated and discussed with her current care. She does have a history of cardiac dysrhythmias and certainly, if this does not improve, she may require a pacemaker. cc: Ranulfo Cordova MD
[2018-10-25] MEDS: ZOLOFT PO SCH (11:59)
[2018-10-25] MEDS ORDERED: XANAX PO PRN (13:21)
[2018-10-25] MEDS ORDERED: APRESOLINE IV ONE (13:43)
[2018-10-25] MEDS ORDERED: PRINIVIL PO ONE (13:44)
[2018-10-25] MEDS: OXY IR PO PRN (16:33)
[2018-10-25] MEDS: CATAPRES PO PRN (17:09)
[2018-10-25] MEDS: HUMALOG (PARKWAY) SUBQ SCH ×2 (17:10→21:39)
[2018-10-25] MEDS: PRAVACHOL PO SCH (21:40)
--- NOTE | 2018-10-25 23:42 | PROGRESS NOTE ---
DATE: 10/25/2018 SUBJECTIVE: Patient notes that she is feeling better although this morning for some reason she started coughing after she drank some water. Notes that she had not had any previous cough like that before. She denies any chest pain, palpitations. Denies any shortness of breath otherwise. PHYSICAL EXAMINATION: Vital Signs: Temperature 98 degrees, pulse 94, BP elevated at 190-200 systolic. General: Patient is awake, alert. She is in no current distress. She is very pleasant to talk with. HEENT: Normocephalic. Neck: Supple. Cardiovascular: Regular rate. No murmurs. Chest: Clear. No crackles. No wheezing although patient is currently coughing, nonproductive. Abdomen: Soft, obese, nondistended, nontender. Extremities: Moves all extremities. No edema. ASSESSMENT: 1. Acute metabolic encephalopathy, appears resolved. 2. Hypertension. Blood pressures remain elevated. 3. Hypothyroidism. 4. Anemia of chronic disease. 5. Diabetes with hyperglycemia. 6. Bradycardia, resolved. PLAN: We will continue patient in the hospital. We will restart her home blood pressure medications with hydralazine and lisinopril. We use clonidine p.r.n. as she is already on high- dose hydralazine. We will follow. We will transfer her to the floor, allow her to ambulate. Hopefully, she can discharge home tomorrow if she is stable. cc: Ranulfo Cordova MD
[2018-10-26] MEDS: CATAPRES PO PRN (00:46)
[2018-10-26] MEDS: OXY IR PO PRN (02:14)
[2018-10-26] MEDS ORDERED: TYLENOL PO PRN (03:58)
[2018-10-26 06:31] LABS: HEMATOCRIT 29.9 % (37.0-47.0); HEMOGLOBIN 9.3 g/dL (12.0-16.0); MCH 24.5 PG (27-31); MCHC 31.1 g/dL (33-37); MCV 78.9 FL (81-99); MPV 10.2 FL (7.4-10.4); RBC 3.79 XMIL (4.2-5.4); RDW 16.8 % (11.5-14.5); WBC 10.62 X1000 (4.8-10.8)
[2018-10-26] MEDS: HUMALOG (PARKWAY) SUBQ SCH ×2 (06:35→12:13)
[2018-10-26] MEDS: SYNTHROID PO SCH (06:35)
[2018-10-26 06:53] LABS: HEMOGLOBIN A1C 7.2 % (4.8-6.0)
[2018-10-26 07:17] LABS: AGAP 11; ALBUMIN 3.6 g/dL (3.5-5.0); ALKALINE PHOSPHATASE 47 U/L (32-104); BUN 23 mg/dL (8-22); CALCIUM 8.4 mg/dL (8.8-10.2); CHLORIDE 107 mmol/L (98-107); COSMO 283; CREATININE 0.7 mg/dL (0.5-0.9); ESTIMATED GFR > 60; GLUCOSE 159 mg/dL (70-104); GOT 21 U/L (10-30); GPT 16 U/L (10-36); MAGNESIUM 1.7 mg/dL (1.5-2.7); POTASSIUM 3.8 mmol/L (3.5-5.1); SODIUM 138 mmol/L (136-145); TCO2 21 mmol/L (25-35); TOTAL PROTEIN 7.1 g/dL (6.3-8.3)
[2018-10-26] MEDS ORDERED: PRINIVIL PO SCH (09:00)
[2018-10-26] MEDS: GLUCOPHAGE XR PO SCH (09:39)
[2018-10-26] MEDS: APRESOLINE PO SCH ×2 (09:39→12:13)
[2018-10-26] MEDS: ZONEGRAN PO SCH (09:39)
[2018-10-26] MEDS: XARELTO PO SCH (09:39)
[2018-10-26] MEDS: ZOLOFT PO SCH (09:39)
[2018-10-26 13:58] VITALS: BP 147/84
--- NOTE | 2018-10-27 05:24 | DISCHARGE SUMMARY ---
ADMISSION DATE: 10/24/2018 DISCHARGE DATE: 10/26/2018 ADDENDUM: Patient seen and examined by myself. Full note dictated and discussed with nurse practitioner. On discharge, the patient is awake, alert. She is in no distress. She notes that she is feeling tremendously better. She is able to ambulate. Unsure of the etiology of her acute metabolic encephalopathy. Certainly medication unintentional overusage may have been the cause. Regardless, she is back to her baseline and therefore we will discharge her home. Discussed with patient to follow up with her primary care in 1 to 2 weeks to discuss the importance of weaning down and hopefully stopping Xanax and OxyContin as the combination could be the culprit. cc: Ranulfo Cordova MD
--- NOTE | 2018-10-27 05:42 | DISCHARGE SUMMARY ---
ADMISSION DATE: 10/24/2018 DISCHARGE DATE: 10/26/2018 PRIMARY CARE PROVIDER: Gabi Oquendo MD. DISCHARGE DIAGNOSES: 1. Acute metabolic encephalopathy. 2. Hypertension. 3. Hypothyroidism. 4. Anemia of chronic disease. 5. Diabetes with hyperglycemia. 6. Bradycardia. PROCEDURES AND FINDINGS: This is a 73-year-old female who presented to the hospital via ambulance. Her noted that he could not wake her up. She was confused and disoriented. The patient had become a little bit more oriented when the ambulance arrived, the blood pressure was low with an 85/42. Upon arrival to the ER, she had a heart rate of 34. Blood sugar was elevated at 359. Social Service and Dr. Concepcion with cardiology consulted. HOSPITAL COURSE: The patient was admitted to [facility]. Her home medications hydralazine and lisinopril were restarted for blood pressure. Clonidine was also used p.r.n. The patient was placed on Accu-Chek's and a diabetic diet. Service Loss Control Consultant was consulted. The patient's echocardiogram showed that the left ventricular function was normal with ejection fraction of 65%. No wall motion abnormalities were noted. There was no pericardial effusion and a mild degree of mitral regurgitation. Aortic valve, pulmonic valve and tricuspid valve looked normal. Head CT showed no visible acute intracranial abnormality and no hemorrhage or mass defects. Chest x-ray with no discrete evidence of acute disease. EKG showed junctional bradycardia with T-wave abnormality, and prolonged QT at a rate of 44 beats per minute. The patient's EKG on 10/24/2018 showed normal sinus rhythm with a ventricular rate of 88 beats per minute. The patient's initial vital signs were of heart rate of 35. The patient's discharge heart rate is in the 80s to 90s with last vital signs being temperature 97.7 degrees, pulse rate of 100, respiratory rate of 20, blood pressure 162/67, and 94% on room air.pt. is alert and oriented and states she feeling much better. Acute metabolic encephalopathy appears resolved. Hypertension-will maintain on blood pressure medication. Hypothyroidism-medical management, anemia of chronic disease-resolved, diabetes, maintain current medications, and bradycardia is resolved. LABORATORY: The patient's initial labs on 10/24/2018 showed a WBC of 7.66, hemoglobin and hematocrit of 8.0 and 25.7 with platelet count of 196,000. Discharge hemoglobin and hematocrit of WBC 10.6, 9.3 and 29.9 with platelets being at 228,000. Sodium 138, potassium of 3.8, chloride 107, and glucose 159. Initial glucose of 268. Patient's troponin is negative, and magnesium of 1.7. UA was negative for nitrites. Stool occult blood negative. DISCHARGE MEDICATIONS: Alprazolam, Xanax 0.5 mg p.o. q.12 hours, hydralazine 50 mg p.o. t.i.d., levothyroxine 75 mcg p.o. daily, lisinopril 40 mg p.o. daily, metformin 500 mg p.o. b.i.d., oxycodone 5 mg p.o. q.4-6 hours p.r.n. as needed for pain, oxycodone, pravastatin 40 mg p.o. at bedtime, Xarelto 10 mg p.o. daily, Zoloft 100 mg p.o. daily, Zonegran 2 caps p.o. q.6 hours, Norvasc 5 mg p.o. daily, aspirin 325 mg p.o. daily, and multivitamin 1 capsule p.o. daily. ACTIVITY: As tolerated. DIET: Heart healthy diet. DISPOSITION: The patient is to be discharged to home and to follow up with primary care provider Gabi Oquendo MD in the next 1 to 2 weeks. The patient is to call primary care provider for any questions or concerns. All discharge instructions are reviewed with the patient and verbalized understanding. Dictated by CHICA Watson for Ranulfo Cordova MD cc: MD Dr. Jamey Mckeon MD [facility]
--- NOTE | 2018-10-27 09:14 | EKG Report ---
Test Performed on : 10/24/2018 07:49:35 AM Test Reason : ER Blood Pressure : / mmHG Vent. Rate : 036 BPM Atrial Rate : 258 BPM P-R Int : 000 ms QRS Dur : 068 ms QT Int : 544 ms P-R-T Axes : 000 048 117 degrees QTc Int : 420 ms Atrial fibrillation. with slow ventricular response. Low voltage QRS Cannot rule out Anterior infarct , age undetermined T wave abnormality, consider lateral ischemia Abnormal ECG When compared with ECG of 25-JUN-2018 17:20, Atrial fibrillation. has replaced Sinus rhythm. Vent. rate has decreased BY 57 BPM QT has shortened Unconfirmed Result
== END 2018-10-26 15:13 | disposition home or self-care (01) | DRG 917 ==
LOC: SUPCPDRO → P.ED 07:46 → P.ICU 13:32 → P.MEDSURG 10-25 13:33
PROVIDERS: ATTEND Family Medicine
CPT/HCPCS: 70450; 71010; 71045; 80053; 80104; 80301; 80305; 81001; 82270; 82550; 82805; 82948; 83036; 83735; 84443; 84484; 85025; 85027; 87088; 93005; 93306; 94761; A9270; C8929; G0431; G0434; G0477; J0360; J1265; J1815; Q9957; XXXXX

== ENCOUNTER 2018-12-12 15:13 | Inpatient (IN) ==
[2018-12-12 16:27] LABS: BASO# 0.03 X1000 (0.0-0.2); BASO% 0.3 % (0.0-0.8); EOS# 0.51 X1000 (0.0-0.7); EOS% 5.9 % (0.0-10.0); HEMATOCRIT 26.3 % (37.0-47.0); HEMOGLOBIN 7.9 g/dL (12.0-16.0); IMM GRAN# 0.03 X1000 (0.0-0.04); IMM GRAN% 0.3 % (0.0-0.5); LYMPH% 17.4 % (20.5-51.1); MCH 23.4 PG (27-31); MONO# 0.84 X1000 (0.11-0.59); MONO% 9.8 % (1.7-9.3); MPV 10.2 FL (7.4-10.4); NEUT% 66.3 % (42.2-75.2); PLT 309 X1000 (130-400); RBC 3.37 XMIL (4.2-5.4); RDW 17.1 % (11.5-14.5); WBC 8.61 X1000 (4.8-10.8)
[2018-12-12 16:41] LABS: AGAP 13; ALBUMIN 3.7 g/dL (3.5-5.0); ALKALINE PHOSPHATASE 43 U/L (32-104); BUN 43 mg/dL (8-22); CALCIUM 8.5 mg/dL (8.8-10.2); CHLORIDE 98 mmol/L (98-107); COSMO 280; CREATININE 1.3 mg/dL (0.5-0.9); ESTIMATED GFR 40; GLUCOSE 149 mg/dL (70-104); GOT 21 U/L (10-30); GPT 16 U/L (10-36); POTASSIUM 4.5 mmol/L (3.5-5.1); SODIUM 133 mmol/L (136-145); TCO2 23 mmol/L (25-35); TOTAL BILIRUBIN < 0.15 mg/dL (0.20-1.00); TOTAL PROTEIN 7.1 g/dL (6.3-8.3)
--- NOTE | 2018-12-12 17:22 | Diag Imaging Result Doc PS360 ---
EXAM: CT HEAD W/O CONTRAST INDICATION: Fall and hit head TECHNIQUE: This exam was performed using automated exposure control, adjustment of mA or kV according to patient size, and/or use of iterative reconstruction technique. COMPARISON: 10/24/2018 FINDINGS: There is no definite acute infarct given the limited sensitivity of CT versus MRI. There is no discrete intracranial mass, mass effect, or intracranial hemorrhage. There is a moderate-sized subgaleal scalp hematoma posteriorly on the left. The calvaria is intact. IMPRESSION: Left posterior scalp hematoma but no evidence of acute intracranial pathology. Electronically signed by Nolan Davis 12/12/2018 5:20 PM
--- NOTE | 2018-12-12 17:27 | PROVIDER DOCUMENTATION ---
HPI-General Adult - General Chief Complaint: Edema Stated Complaint: FLUID ON LEGS Time Seen by Provider: 12/12/18 15:50 Source: patient Allergies/Adverse Reactions: Patient Allergies Allergy/AdvReac Type Severity Reaction Status Date / Time butorphanol tartrate * Allergy Severe SHORTNESS Verified 12/12/18 15:25 [From Stadol] OF BREATH prochlorperazine edisylate * Allergy Severe SHORTNESS Verified 12/12/18 15:25 [From Compazine] OF BREATH prochlorperazine maleate * Allergy Severe SHORTNESS Verified 12/12/18 15:25 [From Compazine] OF BREATH codeine [Codeine] Allergy Intermediate HIVES Verified 12/12/18 15:25 ondansetron [From ZOFRAN ODT] Allergy Mild VOMITING Verified 12/12/18 15:25 acetaminophen [From Fioricet] Allergy CHEST PAIN Verified 12/12/18 15:25 butalbital [From Fioricet] Allergy CHEST PAIN Verified 12/12/18 15:25 caffeine [From Fioricet] Allergy CHEST PAIN Verified 12/12/18 15:25 ketorolac tromethamine * Allergy SWELLING Verified 12/12/18 15:25 [From Toradol] sulfamethoxazole Allergy NAUSEA/VOMI Verified 12/12/18 15:25 [From Bactrim] TING trimethoprim [From Bactrim] Allergy NAUSEA/VOMI Verified 12/12/18 15:25 TING Home Medications: Home Medication List Medication Instructions Recorded Confirmed Last Taken Type Levothyroxine Sodium 75 microgm PO DAILY 12/16/11 10/24/18 07/08/18 10:00 History Zonisamide [Zonegran] 2 cap PO Q6HR 12/16/11 10/24/18 07/08/18 18:00 History Aspirin/Calcium Carbonate/Mag 325 mg PO DAILY 08/04/12 10/24/18 06/29/18 History [Aspirin Buffered 325 mg Tab] Lisinopril 40 mg PO DAILY 08/04/12 10/24/18 07/08/18 10:00 History Hydralazine [Apresoline] 50 mg PO TID 01/03/17 10/24/18 07/08/18 18:00 History PRAVAstatin [Pravachol] 40 mg PO HS 03/29/18 10/24/18 07/08/18 18:00 History Sertraline HCl [Zoloft] 100 mg PO DAILY 03/29/18 10/24/18 07/08/18 10:00 History Metformin HCl [Metformin ER 500 mg PO BID 07/08/18 10/24/18 07/08/18 15:00 History Osmotic] Multivitamin [Multivitamins] 1 dose PO DAILY 07/08/18 10/24/18 07/08/18 10:00 History Oxycodone I.r. [Oxy Ir] 5 mg PO Q4-6H PRN PRN #40 cap 07/10/18 10/24/18 Unknown Rx Alprazolam [Xanax] 0.5 mg PO Q12HR 10/24/18 10/24/18 Unknown History Amlodipine [Norvasc] 5 mg PO DAILY #30 tab 10/26/18 Unknown Rx Rivaroxaban [Xarelto] 10 mg PO DAILY tab 10/26/18 Unknown Rx - History of Present Illness -Gen Adult Nature of Presenting Problems: Pt. is 73 yof that presents with c/o lower extremity edema with weeping. Pt. reports symptoms for about a week. Pt. states while getting out of the car, she fell and hit her head. She denies any LOC or blood thinners. Pt. reports no other complaints. Location of Pain/Injury: reports: head, lower extremity (Bilateral lower extremity edema). denies: none, face, mouth, neck, chest, upper extremity, hand(s), abdomen, back, pelvis, genitalia, feet, upper body, lower body, generalized, other Pain Radiation: reports: no radiation. denies: arm(s), back, buttocks, chest, epigastric, feet, groin, jaw, flank (L), legs (lower), LLQ, LUQ, neck, periumbilical, flank (R), RLQ, RUQ, shoulder(s), scapula, scrotal, sternal notch, suprapubic, legs (upper), urethral, vaginal, other Quality of Pain: reports: aching, throbbing, tightness. denies: burning, indigestion, pressure, tearing Severity: reports: mild. denies: moderate, severe Onset/Duration: reports: gradual Timing: reports: still present Context/Activities at Onset: reports: none. denies: light activity, moderate activity, vigorous activity, recent emotional stress, recent physical stress, recent trauma history, possible bad food, cold exposure, eating, out of country travel, rest, sleep, sexual activity, other Modifying Factors: improves with: nothing Associated Symptoms: reports: other (Lower extremity edema). denies: denies symptoms, anxiety, arm pain, back/neck pain, chest pain, constipation, cough, diaphoresis, diarrhea, dizziness, EENT symptoms, fatigue, fever/chills, genitou rinary problems, headaches, heartburn, joint pain, loss of appetite, malaise, muscle aches, sinus congestion/drainage, nausea, rash, seizure, shortness of breath, sensory/motor loss, pain with inspiration, swelling/mass in abdomen, syncope, vomiting, weakness, trouble walking Similar Symptoms Previously?: Yes Recently seen or treated by another doctor?: No Review of Systems - Adult - REVIEW OF SYSTEMS - ADULT Constitutional: reports: no symptoms reported Eyes: reports: no symptoms reported Ears, Nose, Mouth & Throat: reports: no symptoms reported Cardiovascular: reports: see HPI, edema, irregular heart rate. denies: orthopnea, poor circulation, syncope Respiratory: reports: no symptoms reported Gastrointestinal: reports: no symptoms reported Genitourinary: reports: no symptoms reported Musculoskeletal: reports: no symptoms reported Integumentary: reports: see HPI, skin thickening. denies: hair loss, mole changes, nail changes Neurological: reports: no symptoms reported Psychiatric: reports: no symptoms reported Past History - Adult - PAST MEDICAL HISTORY-ADULT Review of Records: reports: Old Records Reviewed, Nursing Assessment Review, Medications Reviewed, Social history reviewed & non-contributory. Major Childhood Illnesses: reports: denies history Cardiovascular: reports: HTN, hyperlipidemia Respiratory: reports: denies history Gastrointestinal: reports: denies history Obstetrical/Gynecological: reports: denies history Genitourinary: reports: denies history Musculoskeletal: reports: chronic pain, intervertebral disc disease, neck/back injury Neurological: reports: headaches/migraines, Seizures/Epilepsy Endocrine/Immune: reports: Diabetes, thyroid disorder Other Conditions: reports: denies history Additional History: Frequent visits to the Er for migraines - PRIOR SURGERIES/PROCEDURES Surgical/Procedure History: reports: appendectomy, hysterectomy, joint replacement, other (VSN stimulation ) - IMMUNIZATION STATUS Childhood Immunizations: See Nurse Assessment Flu Vaccine: See Nurse Assessment - FAMILY HISTORY Family History: reviewed, not pertinent - SOCIAL HISTORY Smoking: denies Physical Exam-General - PHYSICAL EXAM-ADULT Initial Vital Signs Reviewed: Yes - CONSTITUTIONAL General Appearance: alert, no apparent distress, obese. negative: anxious, obtunded, combative - EYES Eyes: PERRL/EOMI, pink conjunctivae - HEAD, EARS, NOSE, MOUTH & THROAT HENMT: moist mucous membranes, other (Tenderness to posterior scalp). negative: angioedema - NECK Neck: non-tender, full range of motion, supple, normal inspection - RESPIRATORY Respiratory: lungs clear, normal breath sounds - CARDIOVASCULAR Cardiovascular: normal peripheral pulses, regular rate, rhythm - GASTROINTESTINAL (ABDOMEN) Abdominal Exam: normal bowel sounds, non tender, soft - LYMPHATIC Lymphatic: no adenopathy - MUSCULOSKELETAL Back Exam: normal inspection, no vertebral tenderness Extremity: normal range of motion, erythema, inflammation, pedal edema (bilaterally) Peripheral Pulses: radial (R): 2+, radial (L): 2+ - SKIN Integumentary: erythema (Lower extremities), swelling (Lower extremities). negative: decubitus, jaundice - NEUROLOGIC Neurologic: grossly normal, no motor/sensory deficits - PSYCHIATRIC Psych/Mental Status: normal mood/affect, normal thought content, normal thought process, oriented x 3. negative: anxious, paranoid, tearful Progress - PLAN OF CARE/RESULTS Progress/Plan/Lab Results: Vital Signs - 8 hr 12/12/18 15:21 Temperature 98.2 F Pulse Rate 87 Respiratory Rate 20 Blood Pressure 139/67 O2 Sat by Pulse Oximetry 97 Laboratory Results - last 24 hr 12/12/18 12/12/18 12/12/18 16:01 16:01 16:01 WBC 8.61 RBC 3.37 L Hgb 7.9 L Hct 26.3 L MCV 78.0 L MCH 23.4 L MCHC 30.0 L RDW Std Deviation 17.1 H Plt Count 309 MPV 10.2 Immature Gran % (Auto) 0.3 Neut % (Auto) 66.3 Lymph % (Auto) 17.4 L Rogers % (Auto) 9.8 H Eos % (Auto) 5.9 Baso % (Auto) 0.3 Immature Gran # (Auto) 0.03 Neut # (Auto) 5.70 Lymph # (Auto) 1.50 Rogers # (Auto) 0.84 H Eos # (Auto) 0.51 Baso # (Auto) 0.03 Sodium 133 L Potassium 4.5 Chloride 98 Carbon Dioxide 23 L Anion Gap 13 BUN 43 H Creatinine 1.3 H Estimated GFR/1.73 m2 40 BUN/Creatinine Ratio 33 Glucose 149 H Calculated Osmolality 280 Calcium 8.5 L Total Bilirubin < 0.15 L AST 21 ALT 16 Alkaline Phosphatase 43 Cqd-C-Jvaccsnhsnj Pept 249 Total Protein 7.1 Albumin 3.7 Globulin 3.0 Albumin/Globulin Ratio 1.0 Plasma Lactate 12/12/18 16:01 WBC RBC Hgb Hct MCV MCH MCHC RDW Std Deviation Plt Count MPV Immature Gran % (Auto) Neut % (Auto) Lymph % (Auto) Rogers % (Auto) Eos % (Auto) Baso % (Auto) Immature Gran # (Auto) Neut # (Auto) Lymph # (Auto) Rogers # (Auto) Eos # (Auto) Baso # (Auto) Sodium Potassium Chloride Carbon Dioxide Anion Gap BUN Creatinine Estimated GFR/1.73 m2 BUN/Creatinine Ratio Glucose Calculated Osmolality Calcium Total Bilirubin AST ALT Alkaline Phosphatase Aaq-E-Wibjvuwdsni Pept Total Protein Albumin Globulin Albumin/Globulin Ratio Plasma Lactate 1.4 Orders Category Date Time Status Saline Loc NOW Care 12/12/18 15:[address] HEAD W/O CONTRAST [CT] Stat Exams 12/12/18 15:35 Completed BLOOD CULTURE [BLDCUL] Stat Lab 12/12/18 16:17 Ordered CBC WITH ELECTRONIC DIFF [HEME] Stat Lab 12/12/18 16:01 Completed COMPREHENSIVE METABOLIC PANEL [CHEM] Stat Lab 12/12/18 16:01 Completed LACTATE, PLASMA [CHEM] Stat Lab 12/12/18 16:01 Completed PRO B-NATRIURETIC PEPTIDE Stat Lab 12/12/18 16:01 Completed Pharmacy Order [Vancomycin IV Per Pharmacy] Med 12/12/18 17:30 Ordered 1 each MISC DIRECTED Discussed results and plan of care with patient. Patient agrees with plan and verbalizes understanding. Result Diagrams: 12/12/18 16:01 12/12/18 16:01 - CT/MRI 1 CT Study: Head ([facility] - [address], [address], [place] [address] [facility] - [address] [place] [address] Department of Imaging Patient: CHAITANYA BUTLER Date: 12/12/18 MR#: [id number] : 1945DM Status: PRE ERAt#: [id number] Age/Sex: 73/FRoom/Bed: Loc: P.ED Ordering Physician: Colten Moe Family Physician: Gabi Oquendo MD Reason for Procedure: Fall and hit head Signed EXAM: CT HEAD W/O CONTRAST INDICATION: Fall and hit head TECHNIQUE: This exam was performed using automated exposure control, adjustment of mA or kV according to patient size, and/or use of iterative reconstruction technique. COMPARISON: 10/24/2018 FINDINGS: There is no definite acute infarct given the limited sensitivity of CT versus MRI. There is no discrete intracranial mass, mass effect, or intracranial hemorrhage. There is a moderate-sized subgaleal scalp hematoma posteriorly on the left. The calvaria is intact. IMPRESSION: Left posterior scalp hematoma but no evidence of acute intracranial pathology. Electronically signed by Nolan Davis 12/12/2018 5:20 PM 12/12/18 1720 Interpreting Physician: Nolan Davis MD Dictated Date/Time: 12/12/18 2918 cc: Colten Moe; Gabi Oquendo MD) CT Results: See note - CONSULTS/PCP/HOSPITALIST Notification #1 *Consult/PCP/Hospitalist*: Dr. Haji Time Discussed: 17:35 Reason/Comments: Admission Consult Disposition: Will see in ED, Admit Departure - Departure Date of Disposition Decision: 12/12/18 Time of Disposition Decision: 17:29 DIAGNOSIS: Peripheral edema Head injury Qualifiers: Encounter type: initial encounter Qualified Code(s): S09.90XA - Unspecified injury of head, initial encounter Anemia Qualifiers: Anemia type: unspecified type Qualified Code(s): D64.9 - Anemia, unspecified Chronic renal insufficiency Qualifiers: Chronic kidney disease stage: unspecified stage Qualified Code(s): N18.9 - Chronic kidney disease, unspecified Cellulitis Qualifiers: Site of cellulitis: extremity Site of cellulitis of extremity: lower extremity Laterality: unspecified laterality Qualified Code(s): L03.119 - Cellulitis of unspecified part of limb Disposition: ADMITTED INPATIENT 09 Certified Medical Emergency: Emergent Condition: Stable Referrals and Follow-Ups: Gabi Oquendo MD [Primary Care Provider] - - Critical Care Note This patient required my direct & personal management of CC.: No Attestation - Physician/ AMY Attestation Patient care was provided by Advanced Practice Provider:: Yes Advanced Practice Provider:: Colten Moe Advanced Practice Provider documentation review:: The Mid-level provider documentation, treatment plan and medical decision making was reviewed by the physician who agrees with all treatment and medical decision making by the MLP. The physician spent face to face time with patient:: No Advanced Practice Provider documentation review:: Supervising physician onsite and consulted in the evaluation and care of this patient. The physician did not have a face to face encounter with the patient.
[2018-12-12] MEDS ORDERED: VANCOMYCIN IV PER PHARMACY MISC SCH (17:30)
--- NOTE | 2018-12-12 19:13 | HISTORY AND PHYSICAL ---
CHIEF COMPLAINT: Leg swelling and rash. HISTORY OF PRESENT ILLNESS: This is a 73-year-old female who presented to the emergency room with bilateral lower extremity edema with weeping wounds. She states that she fell while getting out of her car outside the hospital and hit her head, but denied having any loss of consciousness or any other complaint. Currently she feels well and denies having any other issues and initially wanted to go home and did not want to be admitted to the hospital, but then later agreed to have the admission and get treated as inpatient. PAST MEDICAL HISTORY: 1. Chronic atrial fibrillation. 2. Type 2 diabetes mellitus. 3. Hypertension. 4. Anemia of chronic disease. 5. Hypothyroidism. 6. Dyslipidemia. 7. Osteoarthritis. ALLERGIES: She reports multiple allergies, including Stadol, Compazine, codeine, Zofran, Fioricet, Toradol, and Bactrim. CURRENT HOME MEDICATIONS: 1. Atorvastatin 40 mg orally once daily at bedtime. 2. Xarelto 10 mg orally once daily. 3. Zoloft 100 mg orally once daily. 4. Metformin 500 mg orally twice daily. 5. Lisinopril 40 mg orally once daily. 6. Levothyroxine 75 mcg orally once daily. 7. Hydralazine 50 mg orally 3 times a day. 8. Norvasc 5 mg orally once daily. SOCIAL HISTORY: The patient does not smoke any tobacco products nor does she drink alcohol. She denies using any recreational drugs. FAMILY HISTORY: Noncontributory. REVIEW OF SYSTEMS: A full 14-point review of systems could not be obtained since the patient is a poor historian. PHYSICAL EXAMINATION: VITAL SIGNS: Temperature 98.2 degrees, pulse 87 per minute, respiratory rate 20 per minute, blood pressure 139/67, pulse oximetry 97% on room air GENERAL: The patient is alert and oriented x3. She does not appear to be in any acute distress. CARDIOVASCULAR SYSTEM: First and second heart sounds are audible without any murmurs or gallops. RESPIRATORY SYSTEM: No respiratory distress noted. Bilateral lung air entry is good without any rales or rhonchi. GASTROINTESTINAL SYSTEM: Abdomen is soft and nondistended. It is nontender on palpation and normal bowel sounds are present. NEUROLOGIC: No focal deficits are present. PSYCHIATRIC: Normal affect noted. GENITOURINARY: Deferred. INTEGUMENTARY: Bilateral legs noted to have significant erythema with edema and weeping with a foul odor. DIAGNOSTIC DATA: CBC showed hemoglobin of 7.9 and hematocrit 26.3. Rest of the CBC is nondiagnostic. Chemistry showed BUN of 43 and creatinine 1.3. Rest of the comprehensive metabolic panel is nondiagnostic. Plasma lactate levels were found to be 1.4. IMPRESSION: 1. Bilateral leg cellulitis. 2. Acute kidney injury. 3. Anemia of chronic disease. 4. Chronic atrial fibrillation. 5. Type 2 diabetes mellitus. 6. Hypertension. PLAN: The patient will be admitted to the med-surg floor and we will start her on IV fluids along with broad-spectrum IV antibiotics. She will continue her routine home medications and we will provide her supportive care and monitor her hemoglobin and hematocrit. She will get transfused red blood cells if needed in case she has any further drop in her hemoglobin and hematocrit. I am also going to provide her lispro insulin subcutaneously as per sliding scale and obtain TSH with free T3 and free T4 levels tomorrow. We will continue her routine home medications, including Xarelto for thromboembolism prophylaxis. Further recommendations will be given as per hospital course. cc: Naveed Haji MD
[2018-12-12] MEDS: VANCOMYCIN 2,000 MG in NS 500 ML IV SCH (21:03)
[2018-12-12] MEDS ORDERED: REGLAN IV PRN (21:25)
[2018-12-12] MEDS: HUMALOG (PARKWAY) SUBQ SCH (23:10)
[2018-12-12] MEDS: PRAVACHOL PO SCH (23:10)
[2018-12-12] MEDS: APRESOLINE PO SCH (23:10)
[2018-12-12 23:32] LABS: BILIRUBIN URINE NEGATIVE (NEGATIVE); BLOOD URINE NEGATIVE (NEGATIVE); CLARITY CLEAR (CLEAR); COLOR YELLOW; GLUCOSE URINE NEGATIVE (NEGATIVE); KETONE URINE NEGATIVE (NEGATIVE); LEUKOCYTES URINE 1+ (NEGATIVE); NITRITE URINE NEGATIVE (NEGATIVE); PROTEIN URINE NEGATIVE (NEGATIVE); SP GRAVITY URINE 1.015; UROBILINOGEN URINE NORMAL
[2018-12-12 23:42] LABS: URINE BACTERIA 3+ /HFP; URINE CAST NONE SEEN /LPF; URINE CRYSTAL NONE SEEN /HPF; URINE EPITHELIAL CELLS <10 /HPF (<10); URINE RBC <10 /HPF (<10); URINE SOURCE CLEAN CATCH; URINE YEAST NONE SEEN /HPF
[2018-12-12] MEDS: MORPHINE IV PRN (23:42)
[2018-12-13] MEDS: NS 1,000 ML IV SCH (01:12)
[2018-12-13] MEDS: ZOSYN 3.375 GM in NS 50 ML IV SCH ×4 (01:13→18:40)
[2018-12-13 06:46] LABS: BASO# 0.02 X1000 (0.0-0.2); BASO% 0.2 % (0.0-0.8); EOS# 0.34 X1000 (0.0-0.7); EOS% 3.7 % (0.0-10.0); HEMATOCRIT 27.4 % (37.0-47.0); HEMOGLOBIN 8.2 g/dL (12.0-16.0); IMM GRAN# 0.01 X1000 (0.0-0.04); IMM GRAN% 0.1 % (0.0-0.5); LYMPH# 0.85 X1000 (1.2-3.4); LYMPH% 9.2 % (20.5-51.1); MCH 23.4 PG (27-31); MCHC 29.9 g/dL (33-37); MCV 78.1 FL (81-99); MONO# 0.67 X1000 (0.11-0.59); MONO% 7.3 % (1.7-9.3); MPV 10.1 FL (7.4-10.4); NEUT% 79.5 % (42.2-75.2); PLT 271 X1000 (130-400); RBC 3.51 XMIL (4.2-5.4); RDW 17.1 % (11.5-14.5); WBC 9.19 X1000 (4.8-10.8)
[2018-12-13 06:52] LABS: CALCIUM 7.9 mg/dL (8.8-10.2); CREATININE 1.1 mg/dL (0.5-0.9); POTASSIUM 4.8 mmol/L (3.5-5.1)
[2018-12-13] MEDS: HUMALOG (PARKWAY) SUBQ SCH ×4 (07:06→21:19)
[2018-12-13] MEDS ORDERED: XARELTO PO SCH (09:00)
[2018-12-13] MEDS: PRINIVIL PO SCH ×2 (11:55→12:14)
[2018-12-13] MEDS: NORVASC PO SCH ×2 (11:55→12:15)
[2018-12-13] MEDS: APRESOLINE PO SCH ×4 (11:55→21:25)
[2018-12-13] MEDS: SYNTHROID PO SCH ×2 (11:56→12:14)
[2018-12-13] MEDS: THERA M PLUS PO SCH ×2 (11:56→12:15)
[2018-12-13] MEDS: ZOLOFT PO SCH ×2 (11:56→12:15)
--- NOTE | 2018-12-13 12:45 | PROGRESS NOTE ---
DATE: 12/13/2018 SUBJECTIVE: The patient denies having any acute complaints this morning and feels better. OBJECTIVE: Vital Signs: Temperature 99.8 degrees, pulse 95 per minute, respiratory rate 20 per minute, blood pressure 135/56, pulse oximetry 96% on room air. General: The patient is alert and oriented x3. She does not appear to be in any acute distress. Cardiovascular System: First and second heart sounds are audible without any murmurs or gallops. Respiratory System: Bilateral lung air entry is good without any rales or rhonchi. Gastrointestinal: Abdomen is soft and nondistended. Normal bowel sounds are present. Musculoskeletal System: Bilateral legs have an erythematous kind of rash, with edema and weeping wounds, which appear to have significantly improved as compared to yesterday. DIAGNOSTIC DATA: CBC shows WBC count of 9.19, hemoglobin 8.2, hematocrit 27.4, and platelet count of 271,000. Her hemoglobin and hematocrit are essentially unchanged as compared to yesterday. Chemistry shows sodium level of 135, BUN 39, and creatinine 1.1. In comparison her BUN and creatinine were 43 and 1.3 yesterday. IMPRESSION: 1. Bilateral leg cellulitis that is getting better. 2. Acute kidney injury that is also getting better. 3. Anemia of chronic disease that is stable. 4. Chronic atrial fibrillation that is stable. 5. Type 2 diabetes mellitus. 6. Hypertension. PLAN: The patient will continue to be on the floor, with IV antibiotics including vancomycin and Zosyn while cultures are pending. We will continue with IV fluid normal saline at 100 mL an hour and continue with lispro insulin as per sliding scale for her diabetes control. We will continue her blood pressure medications along with pravastatin for dyslipidemia and continue to provide her supportive care. She can probably be able to be discharged home in the next 1 to 2 days if she continues to get better. cc: Naveed Haji MD
[2018-12-13] MEDS: PRAVACHOL PO SCH (21:25)
[2018-12-14] MEDS: NS 1,000 ML IV SCH ×3 (00:39→18:57)
[2018-12-14] MEDS: ZOSYN 3.375 GM in NS 50 ML IV SCH ×4 (00:39→18:58)
[2018-12-14] MEDS: MORPHINE IV PRN (00:56)
[2018-12-14] MEDS: VANCOMYCIN 2,000 MG in NS 500 ML IV SCH (02:59)
[2018-12-14] MEDS: HUMALOG (PARKWAY) SUBQ SCH ×4 (06:30→22:23)
[2018-12-14 07:48] LABS: BASO# 0.02 X1000 (0.0-0.2); BASO% 0.2 % (0.0-0.8); EOS% 3.4 % (0.0-10.0); HEMATOCRIT 27.7 % (37.0-47.0); HEMOGLOBIN 8.1 g/dL (12.0-16.0); IMM GRAN# 0.03 X1000 (0.0-0.04); IMM GRAN% 0.3 % (0.0-0.5); LYMPH# 1.35 X1000 (1.2-3.4); LYMPH% 15.5 % (20.5-51.1); MCH 23.1 PG (27-31); MCHC 29.2 g/dL (33-37); MCV 78.9 FL (81-99); MONO# 0.91 X1000 (0.11-0.59); MONO% 10.4 % (1.7-9.3); NEUT% 70.2 % (42.2-75.2); PLT 242 X1000 (130-400); RBC 3.51 XMIL (4.2-5.4); RDW 17.4 % (11.5-14.5); WBC 8.71 X1000 (4.8-10.8)
[2018-12-14 08:09] LABS: CALCIUM 8.4 mg/dL (8.8-10.2); POTASSIUM 4.1 mmol/L (3.5-5.1)
[2018-12-14] MEDS: APRESOLINE PO SCH ×3 (09:36→22:22)
[2018-12-14] MEDS: THERA M PLUS PO SCH (09:36)
[2018-12-14] MEDS: ZOLOFT PO SCH (09:36)
[2018-12-14] MEDS: ZONEGRAN PO SCH (09:36)
[2018-12-14] MEDS: PRINIVIL PO SCH (09:37)
[2018-12-14] MEDS: SYNTHROID PO SCH (09:37)
[2018-12-14] MEDS: NORVASC PO SCH (09:37)
[2018-12-14] MEDS ORDERED: RID LICE KILLING SHAMPOO TOP ONE (10:53)
--- NOTE | 2018-12-14 12:58 | PROGRESS NOTE ---
DATE: 12/14/2018 SUBJECTIVE: The patient reports feeling fine. Denies any fever, chills. Basically the erythema and pain in both legs are getting slowly better. OBJECTIVE: Vital Signs: Temperature 98.5, heart rate 82, respiratory rate 14, blood pressure 148/45, O2 saturation 97% on room air. General: This is a morbidly obese 73-year-old female lying in bed, in no acute distress. Cardiovascular: S1, S2 heard. No murmurs, gallops, or rubs. Regular rate and rhythm. Respiratory: Clear bilaterally to auscultation. No work of breathing or using accessory muscles. Abdomen: Soft. Obese. Nondistended. Bowel sounds present. No organomegaly. Extremities: Bilateral legs have erythematous rash with edema and weeping wounds with signs of chronic venous insufficiency. Neurological: The patient alert oriented x3. Moves all 4 extremities. LABORATORY DATA: CBC is unremarkable except hemoglobin 8.1 which is stable for the last 2 days. BMP reveals creatinine 1.0 with sodium 135. ASSESSMENT: 1. Bilateral leg cellulitis. 2. Acute kidney injury. 3. Anemia of chronic disease. 4. Chronic atrial fibrillation. 5. Diabetes mellitus type 2. 6. Hypertension. PLAN: 1. At this point, the patient is getting better. Erythema is getting better according to the patient and according to the doctor who has seen this patient yesterday. Her white cell count is normal. I think we will continue with current antibiotics. 2. Acute kidney injury is resolved. 3. Anemia chronic disease. Hemoglobin is stable, so I do not think we need to do any other intervention regarding anemia. 4. For chronic atrial fibrillation, we will continue home medications. 5. For diabetes mellitus type 2, we will continue with sliding scale insulin and Accu-Chek before meals and also at bedtime. I think this patient will stay 1 to 2 more days with IV antibiotics and then we will switch to oral. cc: Bryan Rodney MD
[2018-12-14] MEDS: PRAVACHOL PO SCH (22:21)
[2018-12-15] MEDS: NS 1,000 ML IV SCH ×2 (06:17→12:41)
[2018-12-15] MEDS: ZOSYN 3.375 GM in NS 50 ML IV SCH ×2 (06:17→23:11)
[2018-12-15] MEDS: HUMALOG (PARKWAY) SUBQ SCH ×4 (06:45→23:07)
[2018-12-15] MEDS: APRESOLINE PO SCH ×3 (10:47→23:06)
[2018-12-15] MEDS: THERA M PLUS PO SCH (10:48)
[2018-12-15] MEDS: ZOLOFT PO SCH (10:48)
[2018-12-15] MEDS: PRINIVIL PO SCH (10:48)
[2018-12-15] MEDS: SYNTHROID PO SCH (10:48)
[2018-12-15] MEDS: ZONEGRAN PO SCH (10:48)
[2018-12-15] MEDS: NORVASC PO SCH (10:49)
[2018-12-15] MEDS: VANCOMYCIN 2,000 MG in NS 500 ML IV SCH (10:49)
--- NOTE | 2018-12-15 11:45 | PROGRESS NOTE ---
DATE: 12/15/2018 SUBJECTIVE: The patient reports feeling better. No fever or chills. Erythema is basically unchanged in comparing with yesterday. Overall is getting better though. OBJECTIVE: Vital Signs: Temperature 98.7 degrees, heart rate 91, respiratory rate 20, blood pressure 180/52, O2 saturation 99% on room air. General: This is a morbidly obese, 73-year-old, female, lying in bed in no acute distress. Cardiovascular: S1, S2 heard. No murmurs, gallops, or rubs. Regular rate and rhythm. Respiratory: Clear bilaterally to auscultation. No work of breathing or using accessory muscles. Abdomen: Soft, nontender to palpation. Bowel sounds present. No organomegaly. Extremities: Bilateral legs have erythematous rash with edema and weeping wounds, with signs of chronic venous insufficiency. Basically, the same in comparing with yesterday. Neurological: The patient is alert and oriented x3. Moves all 4 extremities. LABORATORY DATA: Reviewed. ASSESSMENT: 1. Bilateral leg cellulitis. 2. Acute kidney injury. 3. Anemia of chronic disease. 4. Chronic atrial fibrillation. 5. Diabetes mellitus type 2. 6. Hypertension. PLAN: 1. At this point, after 3 days in the hospital, clinically this patient is doing better. Erythema is better. Considering how those lesions look, I think she may need to be at least 24 to 48 hours here with intravenous antibiotics. White cell count is normal. Will continue with the current medications. 2. Acute kidney injury is completely resolved. 3. Anemia of chronic disease. Hemoglobin is stable. Will continue to monitor CBC daily, but no transfusions needed. 4. Chronic atrial fibrillation. We have continued with home medications. Heart rate is less than 100. 5. Diabetes mellitus type 2. Will continue with sliding scale insulin and Accu-Chek before meals and also at bedtime. 6. Disposition. As we mentioned before, I think this patient will need to be here in the hospital for 1 to 2 more days with intravenous antibiotics. cc: Bryan Rodney MD
[2018-12-15] MEDS ORDERED: PHENERGAN IM PRN (13:20)
[2018-12-15 14:09] LABS: INR 1.09; PROTIME 14.7 Seconds (11.0-16.0)
[2018-12-15] MEDS: PRAVACHOL PO SCH (23:06)
[2018-12-16] MEDS ORDERED: TYLENOL PO PRN (04:30)
[2018-12-16] MEDS: SYNTHROID PO SCH (05:16)
[2018-12-16] MEDS: HUMALOG (PARKWAY) SUBQ SCH ×4 (06:54→22:20)
[2018-12-16] MEDS ORDERED: XANAX PO PRN (07:16)
[2018-12-16 07:27] LABS: AGAP 10; BUN 16 mg/dL (8-22); CALCIUM 8.5 mg/dL (8.8-10.2); CHLORIDE 101 mmol/L (98-107); COSMO 275; CREATININE 0.8 mg/dL (0.5-0.9); ESTIMATED GFR > 60; GLUCOSE 171 mg/dL (70-104); POTASSIUM 4.1 mmol/L (3.5-5.1); SODIUM 135 mmol/L (136-145); TCO2 24 mmol/L (25-35)
[2018-12-16 07:53] LABS: BASO# 0.02 X1000 (0.0-0.2); BASO% 0.2 % (0.0-0.8); HEMATOCRIT 30.2 % (37.0-47.0); IMM GRAN# 0.02 X1000 (0.0-0.04); IMM GRAN% 0.2 % (0.0-0.5); LYMPH# 1.75 X1000 (1.2-3.4); LYMPH% 17.7 % (20.5-51.1); MCH 23.1 PG (27-31); MCHC 29.8 g/dL (33-37); MCV 77.4 FL (81-99); MONO# 1.03 X1000 (0.11-0.59); MONO% 10.4 % (1.7-9.3); MPV 10.1 FL (7.4-10.4); NEUT# 6.67 X1000 (1.4-6.5); NEUT% 67.5 % (42.2-75.2); PLT 287 X1000 (130-400); RDW 17.1 % (11.5-14.5); WBC 9.89 X1000 (4.8-10.8)
[2018-12-16] MEDS ORDERED: NS 250 ML ONE (09:11)
[2018-12-16] MEDS: ZONEGRAN PO SCH (09:46)
[2018-12-16] MEDS: APRESOLINE PO SCH ×2 (09:46→22:21)
[2018-12-16] MEDS: NORVASC PO SCH (09:47)
[2018-12-16] MEDS: PRINIVIL PO SCH (09:47)
[2018-12-16] MEDS: THERA M PLUS PO SCH (09:47)
[2018-12-16] MEDS: ZOLOFT PO SCH (09:47)
[2018-12-16] MEDS ORDERED: VANCOMYCIN 2,000 MG in NS 500 ML IV SCH (14:00)
[2018-12-16] MEDS: ZOSYN 3.375 GM in NS 50 ML IV SCH (18:45)
[2018-12-16] MEDS: PRAVACHOL PO SCH (22:17)
--- NOTE | 2018-12-16 23:38 | PROGRESS NOTE ---
DATE: 12/16/2018 SUBJECTIVE: Patient is still having cough. Denies any fevers, chills. Denies chest pain, palpitations. OBJECTIVE: Vital signs: Temperature 99.1 degrees, pulse 96, respiratory 20, BP 170/69. General: Patient is in minimal current respiratory distress. HEENT: Normocephalic. Neck: Supple. Cardiovascular: Regular rate. Chest: Clear. Abdomen: Soft. Extremities: Moves all extremities. ASSESSMENT: 1. Acute kidney injury. 2. Chronic kidney disease. 3. Chronic atrial fibrillation, currently rate controlled. 4. Type 2 diabetes. 5. Bilateral lower extremity cellulitis with edema, greater on the left than the right. PLAN: Discussed with patient that lots of this is venous changes chronically and will not change any time soon. We will continue to follow. Continue to ambulate. cc: Ranulfo Cordova MD
[2018-12-17] MEDS: ZOSYN 3.375 GM in NS 50 ML IV SCH ×2 (01:18→05:48)
[2018-12-17] MEDS: PERCOCET-10 PO PRN ×2 (05:45→18:30)
[2018-12-17] MEDS: SYNTHROID PO SCH (05:48)
[2018-12-17] MEDS: HUMALOG (PARKWAY) SUBQ SCH ×4 (06:00→22:08)
[2018-12-17] MEDS: ZONEGRAN PO SCH (10:36)
[2018-12-17] MEDS: APRESOLINE PO SCH ×4 (10:36→22:08)
[2018-12-17] MEDS: NORVASC PO SCH (10:36)
[2018-12-17] MEDS: THERA M PLUS PO SCH (10:36)
[2018-12-17] MEDS: PRINIVIL PO SCH (10:37)
[2018-12-17] MEDS: COREG PO SCH ×2 (10:37→22:08)
[2018-12-17] MEDS: ZOLOFT PO SCH (10:41)
[2018-12-17] MEDS: ROCEPHIN 2 GM in NS 50 ML IV SCH (11:36)
[2018-12-17] MEDS: PRAVACHOL PO SCH (22:08)
--- NOTE | 2018-12-17 22:31 | PROGRESS NOTE ---
DATE: 12/17/2018 SUBJECTIVE: Patient notes that her lower extremity swelling, edema has actually improved. Denies any fevers or chills. PHYSICAL EXAM: Vital signs: Temperature 97.8, pulse 87, respiratory rate 18, BP 151/77. General: Patient is very pleasant. She is in no distress. HEENT: Normocephalic. Neck: Supple. Cardiovascular: Regular rate. Chest: Clear, nonlabored. Abdomen: Soft, nondistended, nontender. Extremities: Moves all extremities. Neurologic: No focal changes. Skin: She has chronic venous stasis bilateral lower extremities with erythematous rash and edema. Her weeping wounds actually have improved dramatically since admission. ASSESSMENT: 1. Bilateral lower extremity cellulitis. 2. Acute on chronic renal disease. 3. Anemia of chronic disease. 4. Chronic atrial fibrillation, stable. 5. Diabetes type 2. 6. Hypertension. PLAN: We will continue patient in the hospital. Continue antibiotics. IV fluids we will continue to hold. Follow her blood sugars. Follow her blood pressures. Hopefully, this will continue to improve and she can be discharged home in the morning. cc: Ranulfo Cordova MD
[2018-12-18] MEDS: PERCOCET-10 PO PRN (02:21)
[2018-12-18] MEDS: SYNTHROID PO SCH (05:28)
[2018-12-18] MEDS: HUMALOG (PARKWAY) SUBQ SCH ×2 (06:25→12:46)
[2018-12-18 08:12] VITALS: BP 186/82
[2018-12-18] MEDS: ZONEGRAN PO SCH (09:30)
[2018-12-18] MEDS: THERA M PLUS PO SCH (09:30)
[2018-12-18] MEDS: PRINIVIL PO SCH (09:30)
[2018-12-18] MEDS: NORVASC PO SCH (09:30)
[2018-12-18] MEDS: COREG PO SCH (09:30)
[2018-12-18] MEDS: APRESOLINE PO SCH ×2 (09:30→15:47)
[2018-12-18] MEDS: ZOLOFT PO SCH (09:30)
[2018-12-18] MEDS: ROCEPHIN 2 GM in NS 50 ML IV SCH (12:46)
--- NOTE | 2018-12-19 08:32 | DISCHARGE SUMMARY ---
ADMISSION DATE: 12/12/2018 DISCHARGE DATE: 12/18/2018 PRIMARY CARE PROVIDER: Dr. Gabi Oquendo. PERTINENT PROCEDURES: Head CT, left posterior scalp hematoma, but no evidence of acute intracranial pathology. DISCHARGE DIAGNOSES: 1. Bilateral lower extremity cellulitis. The patient had a blood culture that grew out Streptococcus canis. This is only out of 1 of 2 blood cultures. However, with her having 2 knee replacements, after we talked to Dr. Alexander, he felt she would need to go on IV antibiotics with Rocephin for a total of 6 weeks and follow up with him in 2 weeks. She has a PICC line and will be discharged back home with IV antibiotic with [facility]. 2. Acute on chronic renal disease, stable. 3. Anemia of chronic disease stable. 4. Chronic atrial fibrillation, stable. 5. Type 2 diabetes. Continue diabetic diet and home regimen. 6. Hypertension stable. HOSPITAL COURSE: Briefly, Ms. Jean is a 73-year-old female who carries a past medical history of chronic atrial fibrillation, type 2 diabetes, hypertension, anemia of chronic disease, hypothyroidism, dyslipidemia, and osteoarthritis who reported to the ED with bilateral lower extremity edema with weeping wounds. She states that she had fell out of her car outside the hospital, hit her head but denied any loss of consciousness or other complaints. Her head CT was negative, but did show a left posterior scalp hematoma, but there was no intracranial pathology. She had one blood culture that grew out Streptococcus canis. She had been initiated on IV antibiotics at her admission and after speaking with Dr. Luisito Alexander and given her 2 knee replacements, we will go ahead and start her on 2 g of IV Rocephin for which she will continue for 6 weeks. She did receive a PICC line and she will follow up with Dr. Alexander in 2 weeks. Her lower extremity cellulitis, swelling and edema has improved. Her legs have now dried up. They are no longer oozing and again she is being discharged back home with home health and [facility] for IV antibiotics. VITAL SIGNS: At time of discharge, temperature is 97.7 degrees, heart rate 69, respirations 18, blood pressure 186/82, O2 is 98% on room air. DISCHARGE DIET: Diabetic. DISCHARGE MEDICATIONS: 1. Percocet 10/325 one each p.o. q.6 hours p.r.n. 2. Xanax 0.5 mg p.o. q.12 hours. 3. Apresoline 50 mg p.o. t.i.d. 4. Aspirin 325 mg p.o. with lunch. 5. Synthroid 75 mcg p.o. daily. 6. Lisinopril 40 mg p.o. daily. 7. Metformin 500 mg p.o. b.i.d. 8. Multivitamins 1 each p.o. daily. 9. Phenergan 25 mg p.o. q.6 hours p.r.n. 10. Pravachol 40 mg p.o. at bedtime. 11. Valium 10 mg p.o. at bedtime p.r.n. 12. Zoloft 100 mg p.o. daily. 13. Zonegran 2 caps p.o. b.i.d. 14. Norvasc 5 mg p.o. daily. 15. Rocephin 2 g IV daily for 6 weeks. FOLLOW-UP: Ms. Jean is being discharged back home with home health and [facility] and IV antibiotics. She is to take all medications as prescribed. She can return to the ED or call 911 for any worsening of symptoms. Dictated by CHICA Woodard for Ranulfo Cordova MD cc: MD Gabi Mckeon MD Leroy F. Harris, MD
--- NOTE | 2018-12-19 21:19 | DISCHARGE SUMMARY ---
ADMISSION DATE: 12/12/2018 DISCHARGE DATE: 12/18/2018 ADDENDUM: Patient seen and examined by myself. Full note dictated and discussed with nurse practitioner. On discharge patient is awake, alert. She is in no distress. She notes the swelling and erythema has greatly improved in her bilateral lower extremities. She is no longer having any drainage. She was growing strep canis in her blood. Given the fact that she has had knee replacements, she will need 6 weeks of IV Rocephin. She has a PICC line and this has been set up. cc: Ranulfo Cordova MD
== END 2018-12-18 16:00 | disposition home health service (06) | DRG 603 ==
LOC: P.ED 15:13 → SUATTDRO 15:14 → P.MEDSURG 15:14
PROVIDERS: ATTEND Family Medicine

== ENCOUNTER 2019-03-13 09:35 | Inpatient (IN) ==
[2019-03-13] MEDS ORDERED: NS 1,000 ML ONE ×2 (09:42→09:59)
[2019-03-13] MEDS ORDERED: DOPAMINE 800 MG/D5W 800 MG/500 ML IV.SOLN ONE (09:52)
[2019-03-13] MEDS ORDERED: ZOSYN 3.375 GM in NS 50 ML IV ONE (10:03)
[2019-03-13 10:09] LABS: BASO# 0.03 X1000 (0.0-0.2); BASO% 0.4 % (0.0-0.8); EOS# 0.38 X1000 (0.0-0.7); HEMATOCRIT 25.3 % (37.0-47.0); HEMOGLOBIN 7.4 g/dL (12.0-16.0); IMM GRAN# 0.04 X1000 (0.0-0.04); IMM GRAN% 0.5 % (0.0-0.5); LYMPH# 1.15 X1000 (1.2-3.4); LYMPH% 15.3 % (20.5-51.1); MCH 23.1 PG (27-31); MCHC 29.2 g/dL (33-37); MCV 79.1 FL (81-99); MONO# 0.65 X1000 (0.11-0.59); MONO% 8.6 % (1.7-9.3); MPV 9.6 FL (7.4-10.4); NEUT# 5.28 X1000 (1.4-6.5); NEUT% 70.2 % (42.2-75.2); PLT 279 X1000 (130-400); RDW 17.6 % (11.5-14.5); WBC 7.53 X1000 (4.8-10.8)
[2019-03-13] MEDS ORDERED: NS 1,000 ML IV ONE ×3 (10:11→12:23)
[2019-03-13 10:14] LABS: INR 1.07; PROTIME 14.5 Seconds (11.0-16.0)
[2019-03-13] MEDS ORDERED: NS 500 ML IV ONE ×2 (10:14→12:23)
[2019-03-13 10:15] LABS: PTT 29.9 Seconds (22.3-41.8)
[2019-03-13] MEDS ORDERED: DOPAMINE 800 MG/D5W 800 MG/500 ML IV.SOLN IV SCH ×2 (10:15→15:00)
[2019-03-13 10:19] LABS: ALBUMIN 3.5 g/dL (3.5-5.0); CALCIUM 8.9 mg/dL (8.8-10.2); CREATININE 1.1 mg/dL (0.5-0.9); POTASSIUM 4.7 mmol/L (3.5-5.1); TOTAL BILIRUBIN 0.2 mg/dL (0.20-1.00); TOTAL PROTEIN 6.2 g/dL (6.3-8.3)
[2019-03-13 10:43] LABS: BE -2.8 mmoll (-3.0-3.0); BLOOD TYPE ARTERIAL; HCO3-(ACT) 22.7 mmoll (20.0-26.0); METHB 1.2 % (0.0-1.5); O2(CT) 11.8 mL/dL (15.0-23.0); O2HB 95.8 % (95.0-99.0); PCO2(98.6) 41 mmHg (35-45); PO2(98.6) 124 mmHg (60-100); SAMPLE BLOOD; SAO2 98.6 % (95.0-100.0); THB 8.6 g/dL (11.5-17.4); pH(98.6) 7.35 (7.35-7.45)
[2019-03-13 10:46] LABS: MODALITY CANNULA
[2019-03-13 10:47] LABS: URINE SOURCE CATH
[2019-03-13 10:50] LABS: BILIRUBIN URINE NEGATIVE (NEGATIVE); BLOOD URINE NEGATIVE (NEGATIVE); COLOR YELLOW; GLUCOSE URINE NEGATIVE (NEGATIVE); KETONE URINE NEGATIVE (NEGATIVE); LEUKOCYTES URINE NEGATIVE (NEGATIVE); NITRITE URINE NEGATIVE (NEGATIVE); PH URINE 5.5; PROTEIN URINE 30 mg/dL (NEGATIVE); SP GRAVITY URINE 1.019; TURBIDITY URINE CLEAR (CLEAR); UROBILINOGEN URINE NORMAL (NORMAL)
[2019-03-13 10:52] LABS: UR EPITHELIAL CELLS <10 /HPF (<10); URINE BACTERIA NEGATIVE /HPF; URINE RBC <10 /HPF (<10); URINE WBC <10 /HPF (<10)
[2019-03-13 10:57] LABS: UR AMPHETAMINES QUAL NONE DETECTED (NONE DETECT); UR BARBITUATES QUAL NONE DETECTED (NONE DETECT); UR BENZODIAZEPIN QUAL PRESUMPTIVE POSITIVE (NONE DETECT); UR CANNABINOIDS QUAL NONE DETECTED (NONE DETECT); UR COCAINE QUAL NONE DETECTED (NONE DETECT); UR METHADONE QUAL NONE DETECTED (NONE DETECT); UR METHAMPHETAMINE QUAL NONE DETECTED (NONE DETECT); UR OPIATES QUAL NONE DETECTED (NONE DETECT); UR OXYCODONE QUAL NONE DETECTED (NONE DETECT); UR PCP QUAL NONE DETECTED (NONE DETECT); UR PROPOXYPHENE QUAL NONE DETECTED (NONE DETECT); UR TCA QUAL NONE DETECTED (NONE DETECT)
--- NOTE | 2019-03-13 13:14 | HISTORY AND PHYSICAL ---
PRIMARY CARE PROVIDER: Dr. Gabi Oquendo. CHIEF COMPLAINT: Not feeling well. HISTORY OF PRESENT ILLNESS: Ms. Jean is a 73-year-old, unkept, female, who carries a past medical history of chronic atrial fibrillation, type 2 diabetes, hypertension, anemia of chronic disease, hypothyroidism, dyslipidemia, osteoarthritis, bilateral lower extremity cellulitis. Per her report, she just finished her IV antibiotics with Dr. Alexander around the beginning of the month. She came to the ED with complaints of generalized weakness and was found to be bradycardic. They had put her on a dopamine drip and was given flumazenil and atropine. However, she was asymptomatic from bradycardia. They felt she was more than likely having a benzodiazepine overdose and she left AMA. Today she came to the ED after she was sitting in her chair and she slipped down to the floor. Her was unable to get her up. They called 911. Upon arrival to the ED, she was hypotensive in the 60s to 70s, and she was bradycardic in the 40s and 50s. Her EKG showed sinus bradycardia with premature supraventricular complexes. Her hemoglobin and hematocrit was found to be 7 and 24. She was initiated on a dopamine drip, typed and screened, and will be given a unit of blood. She was given IV Zosyn for probable sepsis, as well as IV fluid resuscitation. However, she is afebrile. She does not have a white count and her lactates are normal. However, they did culture her lower extremity site. Blood pressures have much improved on the dopamine drip. Heart rate is now in the 80s. Blood pressure is anywhere from 1-teens to 140s/50s. [facility] in their ICU. PAST MEDICAL HISTORY: 1. Chronic atrial fibrillation. 2. Type 2 diabetes. 3. Hypertension. 4. Anemia of chronic disease. 5. Hypothyroidism. 6. Dyslipidemia. 7. Osteoarthritis. PAST SURGICAL HISTORY: 1. Appendectomy. 2. Hysterectomy. 3. Shoulder replacement. SOCIAL HISTORY: She lives with her . No alcohol, tobacco, or illicit drug use. ALLERGIES: Allergies to Stadol, Compazine, codeine, Zofran, Fioricet, tramadol and Bactrim. HOME MEDICATIONS: Are being compiled. REVIEW OF SYSTEMS: The patient is lethargic, however, she does respond to voice and light stimuli, but then she goes right back to sleep. She just reports being very tired. Per 's report at bedside, she has been feeling weak and tired over the past several days. He does report a cough, but no fever, no chills. No nausea, vomiting, diarrhea. No constipation, and no reports of black or dark tarry stools or any hematemesis. PHYSICAL EXAMINATION: VITAL SIGNS: Temperature is 98 degrees, heart rate 86, respirations 18, blood pressure 117/87, O2 is 98% on 2 L nasal cannula. GENERAL: Ms. Jean is a lethargic 73-year-old female, who is lying on the stretcher in no acute distress. She will awaken to voice and light stimulus. Then, she goes back to sleep quickly. HEENT: Atraumatic, normocephalic. PERRL. NECK: Supple. Trachea midline. CARDIOVASCULAR: S1, S2 appreciated. No murmurs, gallops, or rubs noted. RESPIRATORY: Lung sounds clear bilaterally, decreased in the bases. GASTROINTESTINAL: Soft, nontender. Hypoactive bowel sounds. EXTREMITIES: Lower extremities were completely re-bandaged and wrapped. Could not appreciate any oozing through the new bandages. NEUROLOGIC: The patient was lethargic. She did awaken to voice and light stimuli. However, she does know her name, her who is at the bedside, and the hospital she is at. DIAGNOSTIC DATA: Chest x-ray ordered. LABORATORY DATA: White count 7, hemoglobin and hematocrit 7.4 and 25.3, platelet count is 279. Sodium 136, potassium 4.7, BUN 33, creatinine 1.1, blood glucose is 310. Troponin less than 0.010. Plasma lactate 1.9. Urinalysis negative for bacteria negative for nitrites. Toxicology screen is positive for benzodiazepines. ASSESSMENT AND PLAN: 1. Symptomatic bradycardia with hypotension. The patient was placed on a dopamine drip. She has had improvement of her heart rate, as well as blood pressures. We will do a Cardiology consult, and transfer her to [facility] intensive care unit to continue on her dopamine drip. 2. Probable sepsis. We are currently pending chest x-ray and blood cultures. She does have bilateral lower extremity cellulitis that they stated was oozing there currently. They have done cultures to BLE and have currently been rewrapped. I did not get to assess them. She was given intravenous Zosyn. We will continue her on Zyvox and cefepime, and await those cultures. She did receive IV fluid boluses. 3. Hypotension. See #1. 4. Bilateral extremity cellulitis. We will continue with intravenous antibiotics. Consult Wound Care. 5. Anemia of chronic disease, possibly symptomatic. We will rule out a gastrointestinal bleed with Hemoccult stools, transfuse 1 unit of blood and then will need to recheck a hemoglobin and hematocrit. 6. Probable chronic kidney disease. 7. Chronic atrial fibrillation. 8. Hypertension. We will hold any antihypertensive. 9. Hypothyroidism. 10. Dyslipidemia. 11. Osteoarthritis. 12. Diabetes mellitus type 2. We will place her on sliding scale insulin with pattern blood sugars. 13. Further recommendations to follow physician evaluation, laboratory and diagnostic data. Dictated by CHICA Woodard for Ranulfo Cordova MD cc: Ranulfo Cordova MD MTD
[2019-03-13] MEDS ORDERED: VANCOMYCIN IV PER PHARMACY MISC SCH (14:11)
--- NOTE | 2019-03-13 14:58 | CONSULTATION ---
DATE OF CONSULTATION: 03/13/2019 IMPRESSION: 1. Syncope possibly related to sinus node dysfunction. 2. Chronic tendency for bradycardia with ECGs over the past 2 years showing numerous instances of junctional bradycardia with no P waves discerned. 3. Possible atrial fibrillation in the past although review of ECGs over the past 2 years shows 2 instances where tracing was either atrial fibrillation with slow ventricular response versus junctional bradycardia. 4. Acute on chronic anemia. 5. Type 2 diabetes mellitus. 6. Recent cellulitis involving both lower extremities with probable component of chronic venous stasis. 7. Hypothyroidism. 8. Hyperlipidemia. RECOMMENDATIONS: 1. Monitor on telemetry. 2. Transfusion underway. 3. Consider evaluation for possible GI blood loss. 4. Infectious disease consultation to determine status of bilateral lower extremity cellulitis. This will be helpful in decision-making for possible pursuit of permanent pacemaker. 5. Consider permanent pacemaker. At present she does not appear to be acutely unstable although she did experience what sounds like syncope last night which may be multifactorial in origin. HISTORY: This 73-year-old white female with past history of sinus node dysfunction, obesity, type 2 diabetes mellitus, hypertension, chronic anemia, venous stasis, bilateral lower extremity cellulitis was transferred from the emergency room at [facility] for further management after syncopal spell. She has been noted on several occasions over the past year to have junctional bradycardia with significant bradycardia. She has generally complained of feeling weak. Same time she has also had some tendency for anemia. Last night she was sitting in a chair working puzzles. It got late and she got up to go to bed and experienced syncope without warning. She fell to the floor and injured her left hip. EMS was summoned. On their arrival she was reportedly found to be hypotensive with blood pressure in the 60-70 mmHg range and with bradycardia in the 40 beat per minute range. ECG obtained is seen reportedly showed sinus bradycardia with premature supraventricular complexes. She was brought to the emergency room. She was started on dopamine drip to try and increase her heart rate. She is noted to have a hemoglobin of 7 and hematocrit of 24. She is started on a transfusion of blood. She is felt to have possible sepsis and was given intravenous Zosyn and intravenous fluids. She was subsequently transferred here. She denies any fever or chills. There has been no dysuria or cough. She has not noted any melena nor bright red blood per rectum. There has been no chest pain, no shortness of breath. She does relate fatigue. PAST MEDICAL HISTORY: 1. Sinus node dysfunction. 2. Possible episode of atrial fibrillation in the past not well documented over the past 2 years. 3. Hypertension. 4. Chronic anemia. 5. Type 2 diabetes mellitus. 6. Hypothyroidism. 7. Dyslipidemia. 8. Osteoarthritis. 9. Anxiety disorder. PAST SURGICAL HISTORY: Includes hysterectomy, appendectomy and shoulder replacement surgery. She is also status post a stimulator device in the left anterior chest which relates to her seizure disorder that she has had in the past. She does not have a pacemaker. ALLERGIES: She is allergic or intolerant to Stadol, Compazine, codeine, Zofran, Fioricet, tramadol and Bactrim. MEDICATIONS PRIOR TO ADMISSION: As listed. SOCIAL HISTORY: She lives with her . She does not smoke or use alcohol. FAMILY HISTORY: Negative for premature coronary disease. REVIEW OF SYSTEMS: Pulmonary: Negative. Gastrointestinal: Negative. Constitutional: Negative. Remainder review of systems negative/noncontributory beyond history present illness with 14 total systems reviewed. PHYSICAL EXAMINATION: General: This is a obese older white female in no distress. Vital signs: Blood pressure 125/67, heart rate 88 with ECG monitor showing sinus rhythm. Oxygen saturation 98% on nasal cannula oxygen at 2 L/minute. HEENT: Atraumatic, normocephalic. Pupils equal, round, reactive. Mucous membranes are moist. Neck: Supple without jugular venous distention. No carotid bruits. Chest: Clear to auscultation bilaterally. Cardiac: Reveals a regular rate and rhythm without appreciable murmur or gallop. Abdomen: Soft. Bowel sounds are normal. Extremities: Without edema. Neurologic: Reveals her to be alert and fully oriented. Speech is fluent. She moves all 4 extremities equally well. Skin: Warm, dry. Psychiatric: Reveals her mood to be appropriate. DIAGNOSTIC DATA: ECG presently shows sinus rhythm. Nonspecific T-wave abnormalities demonstrated. LABORATORY DATA: Includes a white blood cell count of 7.53, hematocrit 25.3, hemoglobin 7.4, platelet count 279,000. Sodium 136, potassium 4.7, chloride 100, carbon oxide 23, BUN 33, creatinine 1.1, glucose 310. Troponin T less than 0.01. Lactate 0.8. cc: Shamir Lemos MD
[2019-03-13] MEDS: MAXIPIME 1 GM in NS 50 ML IV SCH (15:45)
[2019-03-13] MEDS: HUMALOG SUBQ SCH ×2 (16:05→20:31)
[2019-03-13] MEDS: VANCOMYCIN 2 GM in NS 500 ML IV SCH (16:55)
[2019-03-13] MEDS: TYLENOL PO PRN (17:28)
--- NOTE | 2019-03-13 20:54 | Diag Imaging Result Doc PS360 ---
EXAM: CHEST-PORTABLE HISTORY: r/o pna TECHNIQUE: Single view COMPARISON: 02/16/2019 FINDINGS: The lungs are well expanded. The heart is not enlarged. The vessels are distended. There are no infiltrates. No effusion identified. Left-sided pacemaker. IMPRESSION: Pulmonary edema. Follow-up PA lateral recommended. Electronically signed by Yonatan Scott 03/13/2019 8:51 PM
[2019-03-14] MEDS: TYLENOL PO PRN ×4 (01:34→20:53)
[2019-03-14] MEDS: MAXIPIME 1 GM in NS 50 ML IV SCH ×2 (01:45→13:06)
[2019-03-14 05:45] LABS: BASO# 0.02 X1000 (0.0-0.2); BASO% 0.2 % (0.0-0.8); EOS# 0.33 X1000 (0.0-0.7); EOS% 3.7 % (0.0-10.0); HEMATOCRIT 28.4 % (37.0-47.0); HEMOGLOBIN 8.3 g/dL (12.0-16.0); IMM GRAN# 0.03 X1000 (0.0-0.04); IMM GRAN% 0.3 % (0.0-0.5); LYMPH# 1.53 X1000 (1.2-3.4); LYMPH% 17.3 % (20.5-51.1); MCH 23.2 PG (27-31); MCHC 29.2 g/dL (33-37); MCV 79.3 FL (81-99); MONO# 0.78 X1000 (0.11-0.59); MONO% 8.8 % (1.7-9.3); MPV 10.1 FL (7.4-10.4); NEUT# 6.17 X1000 (1.4-6.5); NEUT% 69.7 % (42.2-75.2); PLT 288 X1000 (130-400); RBC 3.58 XMIL (4.2-5.4); RDW 17.5 % (11.5-14.5); WBC 8.86 X1000 (4.8-10.8)
[2019-03-14 06:29] LABS: AGAP 13; ALBUMIN 3.1 g/dL (3.5-5.0); ALKALINE PHOSPHATASE 44 U/L (32-104); BUN 21 mg/dL (8-22); CALCIUM 8.3 mg/dL (8.8-10.2); CHLORIDE 106 mmol/L (98-107); COSMO 283; CREATININE 0.8 mg/dL (0.5-0.9); ESTIMATED GFR > 60; GLUCOSE 145 mg/dL (70-104); GOT 15 U/L (10-30); GPT 10 U/L (10-36); MAGNESIUM 1.9 mg/dL (1.5-2.7); POTASSIUM 3.7 mmol/L (3.5-5.1); SODIUM 139 mmol/L (136-145); TCO2 20 mmol/L (25-35); TOTAL BILIRUBIN 0.19 mg/dL (0.20-1.00); TOTAL PROTEIN 6.3 g/dL (6.3-8.3)
[2019-03-14] MEDS: HUMALOG SUBQ SCH ×4 (07:19→20:53)
--- NOTE | 2019-03-14 08:11 | Diag Imaging Result Doc PS360 ---
EXAM: CHEST-PORTABLE - 03/14/2019 HISTORY: follow up TECHNIQUE: Portable chest COMPARISON: 03/13/2019 FINDINGS: Heart size appears within normal limits. Inspiration is mildly shallow. There has been some decrease in interstitial infiltrates/ edema. There is no dense consolidation, substantial pleural effusion, or pneumothorax identified. IMPRESSION: Some decrease in interstitial infiltrates/edema compared to prior. Electronically signed by Enoch Sommers 03/14/2019 8:09 AM
--- NOTE | 2019-03-14 09:05 | PROGRESS NOTE ---
DATE: 03/14/2019 SUBJECTIVE: This morning Ms. Jean refers to be doing a lot better, has not had any more syncopal episodes. No chest pain. No shortness of breath. Ms Jean presented to [facility] yesterday after she syncopized. Per the story, according to her, she just blacked out sitting down and called 911. Upon presenting to the emergency room, she was found to be hypotensive with systolic blood pressures in the 60s to 70s and also severely bradycardic with a heart rate in the 40s to 50s. She was initially started on dopamine drip and brought to the [facility] for a higher level of care. OBJECTIVE: Vital signs: Blood pressure has normalized, currently 173/66 with a pulse of 94, respiration is 14, temperature is 99.6 degrees. General: Ms. Jean is a 73-year-old morbidly obese female. She is in bed. No distress. HEENT: Mucosa is pink and moist. Anicteric, acyanotic. Neck: Supple. Chest: Good air entry bilaterally. There were no crepitations. Cardiovascular: Regular rate and rhythm. No murmurs. Abdomen: Soft, distended but nontender. Extremities: Both lower extremities have sterile dressing over the distal parts. Both seem to be weeping some serous secretions. She has bilateral scars on the knees consistent with previous bilateral knee surgeries. Central nervous system: Patient is awake, alert, and oriented. LABORATORY DATA: Blood cultures are still pending. The left leg culture is growing gram-negative rods and a few gram-positive cocci. CBC shows a macrocytic anemia with normal white cell count and platelets. Chemistry is completely within normal range. IMAGING STUDIES: A chest x-ray that was done yesterday showed pulmonary edema. A repeat x-ray this morning shows decrease in interstitial infiltrates/edema compared to prior. CURRENT MEDICATIONS: Have all been reviewed. Dopamine has been discontinued. ASSESSMENT: 1. Syncope at home, most likely related to cardiac etiology. 2. Symptomatic bradycardia on presentation, suspected underlying sick sinus syndrome. 3. History of atrial fibrillation. 4. Hypertension. The patient came in extremely hypotensive which we think was because of poor cardiac output. She is currently doing better. We are going to restart her back on her medications. 5. Diabetes mellitus, controlled. 6. Bilateral stasis dermatitis. cc: Davonte Márquez MD [facility]
[2019-03-14] MEDS: ZOLOFT PO SCH (09:20)
[2019-03-14] MEDS: APRESOLINE PO SCH ×3 (09:20→16:07)
[2019-03-14] MEDS: ZONEGRAN PO SCH ×2 (09:20→20:54)
[2019-03-14] MEDS: SYNTHROID PO SCH (09:20)
[2019-03-14] MEDS: NORVASC PO SCH (09:20)
[2019-03-14] MEDS: PRINIVIL PO SCH (09:21)
--- NOTE | 2019-03-14 09:52 | EKG Report ---
Test Performed on : 03/14/2019 05:49:18 AM Test Reason : bradycardia Blood Pressure : / mmHG Vent. Rate : 091 BPM Atrial Rate : 091 BPM P-R Int : 176 ms QRS Dur : 082 ms QT Int : 396 ms P-R-T Axes : 010 018 048 degrees QTc Int : 487 ms Normal sinus rhythm. Possible Anterior infarct (cited on or before 13-MAR-2019) Abnormal ECG When compared with ECG of 13-MAR-2019 09:49, (Unconfirmed) premature supraventricular complexes. are no longer present Vent. rate has increased BY 40 BPM T wave inversion no longer evident in Anterior leads Confirmed by Geo IVEY, P.J.M ([id number]) on 03/15/2019 1:10:48 PM
--- NOTE | 2019-03-14 12:01 | CARDIOLOGY PROGRESS NOTE ---
DATE: 03/14/2019 CHIEF COMPLAINT: Syncope. SUBJECTIVE: Ms. Jean has not had any feeling like passing out. Heart rate is actually in the upper 90s. No chest discomfort. She is a little sluggish this morning. She has no chest pain. OBJECTIVE: Blood pressure is 166/56, temperature 98.8, pulse 95, respirations 22. She is awake, alert, in no distress. HEENT is unremarkable. Chest: Sounds clear to auscultation and percussion. Heart sounds are regular and rhythmic. No gallop or rub; however, she does have a systolic murmur of 2/6 over the aortic area. Abdomen is nontender. Extremities showed no edema. Neurologic: Follows commands. Moves all 4 extremities. IMPRESSION: 1. The patient presented with syncopal episode, initial documentation of bradycardia. There is a question of atrial fibrillation. 2. Chronic anemia. 3. Diabetes mellitus type 2. 4. Hypothyroid. 5. Hyperlipidemia. RECOMMENDATIONS: I believe we should probably consider implanting a loop recording monitor on her for definitive diagnosis of symptomatic bradycardia. The patient may also be very sensitive to benzodiazepines, which she takes on a regular basis. We will follow her and probably set her up for this procedure to be done on 03/16/2019, under Dr. Paco Mondragon. cc: Truong Walton MD [facility]
[2019-03-14] MEDS: VANCOMYCIN 2 GM in NS 500 ML IV SCH (16:08)
[2019-03-14] MEDS: PRAVACHOL PO SCH (20:53)
[2019-03-15] MEDS ORDERED: RID LICE KILLING SHAMPOO TOP ONE ×2 (01:15→01:46)
[2019-03-15] MEDS: MAXIPIME 1 GM in NS 50 ML IV SCH (02:41)
[2019-03-15] MEDS: TYLENOL PO PRN ×4 (02:41→23:15)
[2019-03-15] MEDS: APRESOLINE PO SCH ×3 (04:08→20:32)
[2019-03-15] MEDS: HUMALOG SUBQ SCH ×4 (06:17→20:32)
[2019-03-15] MEDS: SYNTHROID PO SCH (06:17)
[2019-03-15 06:43] LABS: HEMATOCRIT 28.7 % (37.0-47.0); HEMOGLOBIN 8.6 g/dL (12.0-16.0); MCH 24.2 PG (27-31); MCV 80.6 FL (81-99); MPV 10.4 FL (7.4-10.4); RBC 3.56 XMIL (4.2-5.4); RDW 17.7 % (11.5-14.5); WBC 11.85 X1000 (4.8-10.8)
[2019-03-15 06:53] LABS: AGAP 14; ALBUMIN 2.9 g/dL (3.5-5.0); BUN 15 mg/dL (8-22); CALCIUM 8.6 mg/dL (8.8-10.2); CHLORIDE 104 mmol/L (98-107); COSMO 277; CREATININE 0.7 mg/dL (0.5-0.9); ESTIMATED GFR > 60; GLUCOSE 183 mg/dL (70-104); PHOSPHORUS 1.9 mg/dL (2.7-4.5); POTASSIUM 3.8 mmol/L (3.5-5.1); SODIUM 136 mmol/L (136-145); TCO2 18 mmol/L (25-35)
[2019-03-15] MEDS: ZOLOFT PO SCH (08:53)
[2019-03-15] MEDS: NORVASC PO SCH (08:53)
[2019-03-15] MEDS: ZONEGRAN PO SCH ×2 (08:53→20:32)
[2019-03-15] MEDS: ALDACTONE PO SCH (08:53)
[2019-03-15] MEDS: PRINIVIL PO SCH (08:53)
[2019-03-15] MEDS: MYCOSTATIN POWDER TOP SCH ×2 (08:54→21:07)
--- NOTE | 2019-03-15 09:12 | PROGRESS NOTE ---
DATE: 03/15/2019 SUBJECTIVE: This morning, Ms. Jean refers to be feeling a lot better. Denies any new complaints. Per the nursing staff, her blood pressures have been fairly elevated. The wounds on her lower extremities were dressed yesterday. She denies having any bowel movement. OBJECTIVE: Vital Signs: Blood pressure is 185/58, pulse of 94, respirations 17, temperature is 99.7 degrees. She has a BMI of 46.1. General: Ms. Jean is a 73-year-old female. She is in bed. No distress. HEENT: Mucosa is pink and moist. Anicteric. Acyanotic. Chest: Clear to auscultation. I did not hear any crepitations or wheezing. Cardiovascular: Regular rate and rhythm. No murmurs, no rubs, no gallops. GI: Abdomen was soft, distended. Bowel sounds were present, but hypoactive. No hepatosplenomegaly. Extremities: There is stasis dermatitis on both lower extremities, with more redness before. We unwrapped the dressing. There are superficial ulcerations, which look weeping. GLOBAL HUMAN RESOURCES DIRECTOR: The patient is awake, alert, and oriented. There is no focal neurological deficit. IMAGING AND LABORATORY DATA: WBC is 11.85, hemoglobin is 8.6, platelet count of 257,000. Chemistry is also reviewed, completely within normal range. Glucose is 183. The patient's phosphorus is 1.9. No new imaging studies. The patient's I's and O's show urine output was 2005. She has a positive balance of 850 during the hospital course. MEDICATIONS: Current medications have all been reviewed. ASSESSMENT: 1. Syncopal episode at home, presumed to be related to cardiac etiology. 2. Symptomatic bradycardia on presentation, suspected underlying sick sinus syndrome. 3. History of atrial fibrillation. Currently, the patient is in sinus. 4. Uncontrolled hypertension. The patient's medications have been uptitrated. 5. Hypotension on presentation, presumably due to low cardiac output when she was severely bradycardic. 6. Diabetes mellitus, controlled. 7. Bilateral stasis dermatitis from venous congestion with superimposed cellulitis. Culture is growing gram-negative mouna x2. We are waiting on the identity and sensitivity. In general, we are going to continue with the current medications, including the antimicrobial. We are pending the identity and sensitivity on the gram-negative mouna. Will get the Kapadia catheter out, and will encourage Ms. Jean to be moving around. Will be pending the final recommendations for Cardiology, and hopefully we can discharge Ms. Jean tomorrow. cc: Davonte Márquez MD
--- NOTE | 2019-03-15 10:42 | CARDIOLOGY PROGRESS NOTE ---
DATE: 03/15/2019 CHIEF COMPLAINT: Weakness, syncope. SUBJECTIVE: Ms. Jean has not experienced any new complaint. Her telemetry shows steady sinus rhythm. Last night, the nurses on duty noted that she had lice in her head, so she has been placed on isolation. This morning, her dressings are being changed by her nurse, and she obviously has bilateral pretibial cellulitis. OBJECTIVE: Vital signs: Blood pressure is 185/58, temperature 99.7, pulse 94, respirations 17. She is awake, follows commands, no distress. HEENT is normal. Chest sounds clear to auscultation and percussion. Heart sounds are regular and rhythmic. I do not hear a gallop or murmur. Her abdomen is obese. Extremities showed the aforementioned areas of cellulitis in the pretibial areas of both legs. Neurologic: Follows commands. Moves all 4 extremities. IMPRESSION: 1. The patient presented with a syncopal episode. This has resolved. The reason for that is unclear because her heart rate right now is actually going quite rapid. I am not sure if she may be overdosing on sedatives at home that we did not know about. 2. At this time, because of her hypertension, we will go ahead and put her on appropriate doses of medications, and we will see how she does. 3. Hypertension, morbid obesity, and cellulitis of both lower extremities. cc: Truong Walton MD
[2019-03-15] MEDS: MIRALAX PO SCH (12:30)
--- NOTE | 2019-03-15 12:30 | INFECTIOUS DISEASE CONSULT REP ---
DATE: 03/15/2019 CONCLUSION: The patient is admitted the hospital with bilateral leg cellulitis. She also is found to have lice in her hair. The patient has bilateral interstitial infiltrates, which could be due to pulmonary venous congestion or pneumonia. RECOMMENDATIONS: I agree with treating the patient with cefepime. I have increased the dose to 2 grams IV every 8 hours. I have discontinued vancomycin. I have also ordered that the patient should have the foot of her bed elevated with the manual gauge continuously. I have told the patient also to elevate her legs for as long as possible. I have ordered a procalcitonin level to see if the interstitial infiltrates are due to pulmonary venous congestion or infection or a combination of both. DISCUSSION: The patient tells me that about 6 weeks ago, she started developing erythema of both legs. It has become progressively worse. She was admitted to the hospital, and found to have lice in her hair also. The patient's CBC shows a white count of 11,850, hemoglobin 8.6, and platelet count 257,000. Creatinine is 0.7. GFR is greater than 60. Urinalysis shows no white cells or bacteria. Drug screen was positive for benzodiazepines. The patient is growing 2 types of gram-negative rods from her left leg. Blood cultures thus far are negative. The patient has decreased interstitial infiltrates/edema. DOCTOR OF OPTOMETRY HISTORY: The patient is 2, para 2, AB 0. She has had a hysterectomy. REVIEW OF SYSTEMS: Eyes and Ears: The patient sees and hears well. Neck: No stiffness. Respiratory: No cough or shortness of breath. Cardiac: No chest pain or palpitations. GI: No nausea, vomiting, or diarrhea. : No dysuria or flank pain. Integument: See present illness. Neurologic: The patient does not have seizures. She walks without assistance. She does not complain of loss of memory. Extremities: The patient has bilateral leg cellulitis. See present illness. PREVIOUS HOSPITALIZATIONS AND OPERATIONS: The patient has had 2 labor and deliveries, a hysterectomy, she has had bilateral total knee arthroplasties, and a left total shoulder arthroplasty x2. The patient has also had an appendectomy. MEDICAL DISEASES: Positive for obesity, diabetes mellitus, osteoarthritis, hypothyroidism, hyperlipidemia, and atrial fibrillation. INFECTIOUS DISEASE HISTORY: Negative for pneumonia and UTI. FAMILY HISTORY: Positive for diabetes mellitus, hypertension, myocardial infarction, and cancer. SOCIAL HISTORY[place] . She does not have any pets at home. She does not smoke cigarettes, drink alcoholic beverages, or abuse drugs. ALLERGIES: The patient is allergic to Stadol, Compazine, codeine, Zofran, Fioricet, Toradol, Bactrim. MEDICATIONS: Medications taken at home include Xanax, Norvasc, Lasix, Apresoline, Synthroid, lisinopril, metformin, oxycodone, Actos, Pravachol, Phenergan, Zoloft, Zanaflex, and Zonegran. PHYSICAL EXAMINATION: Vital Signs: Temperature is 99.7 degrees, pulse 94, respirations 17, blood pressure is 185/58. The patient is 5 feet 3 inches tall, weighs 260 pounds. General: This is an obese, elderly female. She is in no acute distress. HEENT: She can hear my spoken words and see near objects. Neck: No meningismus. Lungs: Clear to auscultation. Cardiovascular: Heart rate is regular. Abdomen: Soft and nontender. Extremities: Both legs are edematous. There is a dressing around both legs, where there is erythema. Pictures of the legs have been taken. They show that the involved legs are erythematous. There does not appear to be any gangrenous tissue or purulent drainage. Neurologic: The patient is alert. She can move her extremities. There is no tremor. Her memory as regarding her medical history is slightly diminished. Thank you for the consult. cc: Luisito Alexander MD
[2019-03-15] MEDS: MAXIPIME 2 GM in NS 100 ML IV SCH ×2 (12:31→20:28)
[2019-03-15] MEDS: NEUTRA-PHOS PO SCH ×2 (16:46→20:33)
[2019-03-15] MEDS ORDERED: PEPCID PO ONE (17:28)
[2019-03-15] MEDS: PRAVACHOL PO SCH (20:32)
[2019-03-16] MEDS: APRESOLINE PO SCH ×3 (05:09→21:27)
[2019-03-16] MEDS: MAXIPIME 2 GM in NS 100 ML IV SCH ×2 (05:09→11:41)
[2019-03-16] MEDS: SYNTHROID PO SCH (06:59)
[2019-03-16] MEDS: HUMALOG SUBQ SCH ×4 (07:00→21:27)
--- NOTE | 2019-03-16 07:39 | EKG Report ---
Test Performed on : 03/13/2019 09:49:41 AM Test Reason : ER Blood Pressure : / mmHG Vent. Rate : 051 BPM Atrial Rate : 051 BPM P-R Int : 192 ms QRS Dur : 074 ms QT Int : 578 ms P-R-T Axes : -22 013 071 degrees QTc Int : 532 ms Sinus bradycardia. with premature supraventricular complexes. Low voltage QRS Cannot rule out Anterior infarct , age undetermined Prolonged QT Abnormal ECG When compared with ECG of 16-FEB-2019 14:48, (Unconfirmed) Sinus rhythm. has replaced Atrial fibrillation. QT has lengthened Unconfirmed Result
[2019-03-16] MEDS: ZONEGRAN PO SCH ×2 (08:28→21:27)
[2019-03-16] MEDS: NORVASC PO SCH (08:29)
[2019-03-16] MEDS: NEUTRA-PHOS PO SCH ×5 (08:29→21:27)
[2019-03-16] MEDS: ALDACTONE PO SCH (08:29)
[2019-03-16] MEDS: PEPCID PO SCH (08:29)
[2019-03-16] MEDS: ZOLOFT PO SCH (08:29)
[2019-03-16] MEDS: MYCOSTATIN POWDER TOP SCH ×2 (08:29→21:28)
[2019-03-16] MEDS: PRINIVIL PO SCH (08:29)
[2019-03-16] MEDS: MIRALAX PO SCH (08:29)
[2019-03-16] MEDS ORDERED: NON-FORMULARY BULK MED TOP ONE (11:55)
[2019-03-16] MEDS: TYLENOL PO PRN ×2 (13:32→21:27)
--- NOTE | 2019-03-16 16:27 | PROGRESS NOTE ---
DATE: 03/16/2019 SUBJECTIVE: This morning Ms. Jean referred to be doing a lot better. She denied any new complaints. She thinks the lower extremity swelling is getting better. OBJECTIVE: Vitals: Blood pressure is 156/64, pulse of 81, respiration is 14, temperature is 97.8 degrees. General: Ms. Jean 73-year-old female she was sitting up in the chair this morning at the time of encounter. She denied any respiratory distress. Mucosa is pink and moist. Anicteric. Acyanotic. Neck: Supple. Chest: Clear to auscultation. No crepitation, no rhonchi. Cardiovascular: Regular rate and rhythm. Abdomen: Soft, nontender. Bowel sounds present. Extremities: Stasis dermatitis in both lower extremity noted. Redness has significantly improved and the superficial ulcerations were getting better. DIE POLISHER: Patient was awake, alert and oriented. LABORATORY DATA: None for today. Glucose was 165. CURRENT MEDICATIONS: Have all been reviewed and no changes. Ceftriaxone has been discontinued and patient has been started on Levaquin p.o. for home therapy. ASSESSMENT: 1. Syncopal episode at home presumed to be cardiac related. 2. Symptomatic bradycardia on presentation questionable sick sinus syndrome. Cardiology plans to get Ms. Jean more evaluated on outpatient basis. 3. History of atrial fibrillation currently in sinus. 4. Hypertension is better controlled. 5. Hypotension on presentation presumably from low cardiac output due to bradycardia. 6. Diabetes mellitus controlled. 7. Bilateral stasis venous dermatopathy with superimposed cellulitis. Culture positive for Klebsiella oxytoca and Proteus penneri, antibiotics have been changed to p.o. Levaquin. 8. Head lice noted by the nursing staff. We have added permethrin 1 time dose to her treatment today. cc: Davonte Márquez MD
[2019-03-16] MEDS: LEVAQUIN PO SCH (16:43)
--- NOTE | 2019-03-16 18:59 | INFECTIOUS DISEASE PROGRESS NO ---
DATE: 03/16/2019 PRESENT ILLNESS: The patient has bilateral leg cellulitis. She also had lice in her hair. She has bilateral interstitial infiltrates which could be due to pulmonary venous congestion and/or pneumonia. MEDICATIONS: The patient was on cefepime. PHYSICAL EXAMINATION: Vital Signs: Temperature is 97.8 degrees, pulse is 81, respirations 14, blood pressure is 156/64. General: This is an obese, elderly female. She is in no acute distress. Head, eyes, ears, nose, and throat: I did not notice any lice in the patient's head. She can hear my spoken words and see near objects. I did not see any white patches in her mouth. Neck: No pain with movement. Lungs: Clear to auscultation. Cardiovascular: Heart rate is irregular. Abdomen: Soft and nontender. Extremities: Both legs are edematous and less erythematous than they were yesterday. Neurologic: Patient is alert. She can move her extremities. There is no tremor. LAB AND X-RAY: There is no radiographic study. CBC shows a white count of 11,850, hemoglobin 8.6, and platelet count 257,000. Creatinine is 0.7. GFR is greater than 60. Culture taken from the patient's leg grew Klebsiella and Proteus. ASSESSMENT AND PLAN: Regarding the patient's leg cellulitis, I switched the patient to Levaquin to which both the Klebsiella and Proteus are susceptible. Some of the side effects of the antibiotic, including rash, diarrhea, seizures, and tendon rupture, have been explained to the patient who agrees with treatment. I told the patient it was very important for her to lose weight and also to elevate her legs as much and as long as possible. The Levaquin also will provide coverage for possible pneumonia. The procalcitonin level is not yet back. I think the patient will be going home tomorrow. I have through the computer composed a prescription for Levaquin 500 mg daily #14. I have requested that the patient come back to my office in 2 weeks at which time she will be examined and also another chest x-ray will be done. I will try to find the procalcitonin level as soon as possible. COMORBIDITIES: The patient is obese. She also has diabetes mellitus, osteoarthritis and hypothyroidism. cc: Luisito Alexander MD
[2019-03-16] MEDS: PRAVACHOL PO SCH (21:27)
[2019-03-17] MEDS: APRESOLINE PO SCH ×2 (04:01→12:44)
[2019-03-17] MEDS: SYNTHROID PO SCH (06:23)
[2019-03-17] MEDS: TYLENOL PO PRN (06:23)
[2019-03-17] MEDS: HUMALOG SUBQ SCH ×2 (06:23→11:35)
[2019-03-17] MEDS ORDERED: CATAPRES PO SCH (09:15)
[2019-03-17] MEDS: LEVAQUIN PO SCH (10:04)
[2019-03-17] MEDS: ZONEGRAN PO SCH (10:04)
[2019-03-17] MEDS: ALDACTONE PO SCH (10:04)
[2019-03-17] MEDS: PEPCID PO SCH (10:04)
[2019-03-17] MEDS: ZOLOFT PO SCH (10:05)
[2019-03-17] MEDS: NEUTRA-PHOS PO SCH ×2 (10:05→12:44)
[2019-03-17] MEDS: NORVASC PO SCH (10:05)
[2019-03-17] MEDS: PRINIVIL PO SCH (10:05)
[2019-03-17] MEDS: MIRALAX PO SCH (10:05)
[2019-03-17] MEDS: MYCOSTATIN POWDER TOP SCH (10:11)
[2019-03-17 11:27] VITALS: BP 163/74
--- NOTE | 2019-03-18 16:50 | DISCHARGE SUMMARY ---
ADMISSION DATE: 03/13/2019 DISCHARGE DATE: 03/17/2019 DISPOSITION: Home. FOLLOW UP: Will be: 1. Dr. Oquendo. 2. Dr. Alexander. 3. Dr. Walton. CONSULTATIONS DURING THIS ADMISSION: 1. Cardiology was consulted. Patient was seen by Dr. Lemos. 2. Infectious Disease was consulted. Patient was seen by Dr. Alexander. INVASIVE PROCEDURES DONE DURING THIS ADMISSION: None. IMAGING STUDIES OF SIGNIFICANCE: A chest x-ray on admission did show pulmonary edema. A repeat a day after did show decrease in the interstitial infiltrates compared to prior. ADMISSION DIAGNOSES: 1. Symptomatic bradycardia with hypotension. 2. Probable sepsis. 3. Bilateral extremity cellulitis. 4. Chronic kidney disease. 5. Dyslipidemia. DIAGNOSES AT THE TIME OF DISCHARGE: 1. Syncopal episode at home, presumably related to cardiac etiology. 2. Symptomatic bradycardia on presentation, questionable sick sinus syndrome. 3. History of atrial fibrillation. 4. Hypertension. 5. Bilateral lower extremity stasis dermatopathy with superimposed cellulitis. Culture positive for Klebsiella oxytoca and Proteus penneri. 6. Head lice. 7. Dyslipidemia. 8. Hypothyroidism. DISCHARGE MEDICATIONS: 1. Zonisamide 2 capsules p.o. b.i.d. 2. Levothyroxine 75 mcg p.o. daily. 3. Lisinopril 40 mg p.o. daily. 4. Hydralazine 50 mg p.o. 3 times per day. 5. Pravastatin 40 mg p.o. at bedtime. 6. Sertraline 100 mg p.o. daily. 7. Metformin 1000 b.i.d. 8. Alprazolam 0.5 p.o. q.12. 9. Valium 2 mg p.o. at bedtime. 10. Oxycodone 10 mg p.o. q.6 hours. 11. Aspirin 325 p.o. daily. 12. Furosemide 40 mg p.o. daily. 13. Pioglitazone 30 mg p.o. daily. 14. Amlodipine 10 mg p.o. daily. 15. Levofloxacin 500 p.o. daily. 16. Spironolactone 25 p.o. daily. 17. MiraLAX. 18. Clonidine 0.1 p.o. b.i.d. PRESENTING COMPLAINT: Not feeling well. HISTORY OF PRESENTING COMPLAINT: Ms. Jean is a 73-year-old female who presented to [facility] on the day of presentation because she was not feeling well. She was found to be remarkably bradycardic and hypotensive. She was started on a dopamine drip and was given flumazenil and atropine. However, she remained symptomatic from a bradycardia standpoint. She was eventually transferred from [facility] to [facility] for higher level of care. HOSPITAL COURSE: Ms. Jean eventually got blood pressure improved and pulse got better during the hospital course. She was found to be remarkably edematous in the lower extremity from stasis dermatitis which we thought was superimposed cellulitis. There was a little bleb on the left leg which was cultured, which eventually came back positive for Klebsiella oxytoca and Proteus penneri. ID was consulted. Patient was seen by Dr. Alexander. Antimicrobial management was dictated by him. Ms. Jean was also evaluated by Cardiology, initially by Dr. Lemos who suspected that the patient could have a sinus node dysfunction and made recommendations that she will need to be followed up on an outpatient basis for possible pacemaker placement. Ms. Jean normally follows up with Dr. Walton and he also saw her during the hospital course. Today Ms. Jean refers to be doing a lot better. She denies any new complaints. Lower extremities are looking remarkably well. Both blood pressure and pulse have been remarkably stable for the past couple days. She has been started back on her home medications. We think she is stable to be discharged. She is going to go home with home health and she will follow up with Dr. Oquendo, Dr. Alexander, and Dr. Walton. All the discharge instructions have been discussed with her and she voiced understanding. TIME SPENT FOR DISCHARGE: Thirty-eight minutes. cc: MD Gabi Brian MD Dr. Harris Luis N. Villanueva, MD
--- NOTE | 2019-04-10 17:35 | PROVIDER DOCUMENTATION ---
This chart was entered by Beth Blackman Scribe, acting as scribe for Vivek Pond MD. HPI-General Adult - General Chief Complaint: Fall Stated Complaint: WEAKNESS Time Seen by Provider: 03/13/19 09:37 Source: patient, EMS ([facility]) Allergies/Adverse Reactions: Patient Allergies Allergy/AdvReac Type Severity Reaction Status Date / Time butorphanol tartrate * Allergy Severe SHORTNESS Verified 02/16/19 16:43 [From Stadol] OF BREATH prochlorperazine edisylate * Allergy Severe SHORTNESS Verified 02/16/19 16:43 [From Compazine] OF BREATH prochlorperazine maleate * Allergy Severe SHORTNESS Verified 02/16/19 16:43 [From Compazine] OF BREATH codeine [Codeine] Allergy Intermediate HIVES Verified 02/16/19 16:43 ondansetron [From ZOFRAN ODT] Allergy Mild VOMITING Verified 02/16/19 16:43 acetaminophen [From Fioricet] Allergy CHEST PAIN Verified 02/16/19 16:43 butalbital [From Fioricet] Allergy CHEST PAIN Verified 02/16/19 16:43 caffeine [From Fioricet] Allergy CHEST PAIN Verified 02/16/19 16:43 ketorolac tromethamine * Allergy SWELLING Verified 02/16/19 16:43 [From Toradol] sulfamethoxazole Allergy NAUSEA/VOMI Verified 02/16/19 16:43 [From Bactrim] TING trimethoprim [From Bactrim] Allergy NAUSEA/VOMI Verified 02/16/19 16:43 TING Home Medications: Home Medication List Medication Instructions Recorded Confirmed Last Taken Type Levothyroxine Sodium 75 microgm PO DAILY 12/16/11 02/16/19 07/08/18 10:00 History Zonisamide [Zonegran] 2 cap PO BID 12/16/11 02/16/19 07/08/18 18:00 History Aspirin/Calcium Carbonate/Mag 325 mg PO WLUNCH 08/04/12 02/16/19 06/29/18 History [Aspirin Buffered 325 mg Tab] Lisinopril 40 mg PO DAILY 08/04/12 02/16/19 07/08/18 10:00 History Hydralazine [Apresoline] 50 mg PO TID 01/03/17 02/16/1907/08/19 18:00 History PRAVAstatin [Pravachol] 40 mg PO HS 03/29/18 02/16/19 07/08/18 18:00 History Sertraline HCl [Zoloft] 100 mg PO DAILY 03/29/18 02/16/19 07/08/18 10:00 History Metformin HCl [Metformin ER 500 mg PO BID 07/08/18 02/16/19 07/08/18 15:00 History Osmotic] Multivitamin [Multivitamins] 1 dose PO DAILY 07/08/18 02/16/19 07/08/18 10:00 History Alprazolam [Xanax] 0.5 mg PO Q12HR 10/24/18 02/16/19 Unknown History Amlodipine [Norvasc] 5 mg PO DAILY #30 tab 10/26/18 02/16/19 Unknown Rx Diazepam [Valium] 2 mg PO HS PRN 12/12/18 02/16/19 Unknown History Oxycodone HCl/Acetaminophen 1 ea PO Q6HR PRN 12/12/18 02/16/19 Unknown History [Percocet 10-325 mg Tablet] Promethazine [Phenergan] 25 mg PO Q6H PRN PRN 12/12/18 02/16/19 Unknown History - History of Present Illness -Gen Adult Nature of Presenting Problems: 73 yowf presents to the ed via ems ([facility]) for initial call for fall from chair. per ems got her out of the floor but pt c/o left hip pain. pt on arrival to ed is hypotensive 77/35 68/35 and bradycardiac in upper 40's to lowe r 50's. pt smells strongly of urine and has BLE wrapped due to cellulites with drainage. pt is known well by ems and upon arrival pt had no IV access established. pt is lethargic but can be aroused by strong voice. pt when awake is a/o x3 , slurred speech and quickly goes back to sleep without stimulation. pt has chronic pain and has been known to take more then instructed pain medication but on exam pt sts "Celia I done told you Im taking Tylenol and that it" Location of Pain/Injury: reports: other (left hip) Quality of Pain: reports: aching Severity: reports: mild Onset/Duration: reports: just prior to arrival Timing: reports: still present, intermittent Context/Activities at Onset: reports: light activity Modifying Factors: improves with: immobilization. worse with: movement, palpation Associated Symptoms: reports: fatigue, genitourinary problems (strong smeel of urine), trouble walking. denies: back/neck pain, chest pain, cough, dizziness, fever/chills, nausea, shortness of breath, vomiting Similar Symptoms Previously?: Yes Recently seen or treated by another doctor?: No - Diabetes Related Context Context: reports: high blood sugar (398) Review of Systems - Adult - REVIEW OF SYSTEMS - ADULT ROS:: limited per condition Constitutional: denies: chills, fever Eyes: reports: no symptoms reported Ears, Nose, Mouth & Throat: reports: no symptoms reported Cardiovascular: reports: see HPI, edema. denies: chest pain, palpitations Respiratory: denies: cough, shortness of breath Gastrointestinal: denies: abdominal pain, diarrhea, nausea, vomiting Genitourinary: reports: see HPI, frequent UTI's, other (strong smell of urine) Musculoskeletal: reports: see HPI, other (chronic pain) Integumentary: reports: no symptoms reported Neurological: reports: see HPI, slurred speech. denies: ataxia, dizziness/vertigo, headache/migraines, seizure Psychiatric: reports: no symptoms reported Endocrine: reports: no symptoms reported Hematologic/Lymphatic: reports: no symptoms reported Allergic/Immunologic: reports: no symptoms reported All Other Systems: Reviewed and Negative Past History - Adult - PAST MEDICAL HISTORY-ADULT Review of Records: reports: Old Records Reviewed, Nursing Assessment Review, Medications Reviewed, Social history reviewed & non-contributory. Major Childhood Illnesses: reports: denies history Cardiovascular: reports: A-Fib, HTN, hyperlipidemia Respiratory: reports: pneumonia Gastrointestinal: reports: GERD Obstetrical/Gynecological: reports: denies history Genitourinary: reports: denies history Musculoskeletal: reports: chronic pain, intervertebral disc disease, neck/back injury Neurological: reports: headaches/migraines, Seizures/Epilepsy Endocrine/Immune: reports: anemia, Diabetes, thyroid disorder Diabetes Type: Type 2 Diabetes controlled by:: PO Meds Other Conditions: reports: denies history Additional History: Frequent visits to the Er for migraines - PRIOR SURGERIES/PROCEDURES Surgical/Procedure History: reports: appendectomy, hysterectomy, joint replacement, other (VSN stimulation ) - IMMUNIZATION STATUS Childhood Immunizations: See Nurse Assessment Flu Vaccine: See Nurse Assessment - FAMILY HISTORY Family History: reviewed, not pertinent - SOCIAL HISTORY Smoking: denies Substance Use: denies Living Situation: family (lives with ) Physical Exam-General - PHYSICAL EXAM-ADULT Initial Vital Signs Reviewed: Yes (BP77/35 HR 52 ) - CONSTITUTIONAL General Appearance: mild distress, obese, lethargic, slow to respond - EYES Eyes: PERRL/EOMI (2mm) - HEAD, EARS, NOSE, MOUTH & THROAT HENMT: negative: moist mucous membranes (dry oral) - NECK Neck: non-tender, full range of motion, normal inspection - RESPIRATORY Respiratory: chest non-tender, lungs clear, normal breath sounds - CARDIOVASCULAR Cardiovascular: bradycardia (52), irregularly irregular - CHEST (BREASTS) Chest/Breast: deferred - GASTROINTESTINAL (ABDOMEN) Abdominal Exam: normal bowel sounds, non tender, soft - GENITOURINARY Female Genitalia/Pelvic Exam: deferred, other (strong smell of urine on pt) Rectal Exam: deferred Hemoccult Exam: deferred - LYMPHATIC Lymphatic: no adenopathy - MUSCULOSKELETAL Back Exam: other (pt is obese and hypotensive lying supine in bed. back exam not done) Extremity: erythema (BLE due to cellulitis), swelling (BLE), tenderness (has cellulitis on BLE anterior and has wrapped area from home health c/o left hip pain post fall). negative: normal gait - SKIN Integumentary: warm/dry, erythema (BLE), pallor (generalized), tenderness (BLE) - NEUROLOGIC Neurologic: negative: facial droop, focal weakness, motor weakness - PSYCHIATRIC Psych/Mental Status: oriented x 3 (oncept is awaken she is a/o x3 but otherwise quickly goes back to sleep), disheveled Progress - PLAN OF CARE/RESULTS Progress/Plan/Lab Results: Vital Signs - 8 hr 03/13/19 09:37 Temperature 98 F Pulse Rate 52 L Respiratory Rate 18 Blood Pressure 77/35 O2 Sat by Pulse Oximetry 98 Orders Category Date Time Status Cardiac Monitoring DIRECTED Care 03/13/19 09:41 Active IV Insertion ORDERED Care 03/13/19 09:41 Completed Notify MD of + Sepsis Screen NOW Care 03/13/19 09:41 Active Notify Physician As Ordered Care 03/13/19 09:41 Active CHEST-1 VIEW [RAD] Stat Exams 03/13/19 09:41 Ordered BLOOD CULTURE [BLDCUL] Stat Lab 03/13/19 09:47 Ordered CBC WITH DIFF [HEME] Stat Lab 03/13/19 09:47 Ordered CK PROFILE [SP CHEM] Stat Lab 03/13/19 09:47 Ordered COMPREHENSIVE METABOLIC PANEL [CHEM] Stat Lab 03/13/19 09:47 Ordered LACTATE, PLASMA [CHEM] Q3H Lab 03/13/19 09:51 Ordered LACTATE, PLASMA [CHEM] Q3H Lab 03/13/19 12:45 Uncollected LACTATE, PLASMA [CHEM] Q3H Lab 03/13/19 15:45 Uncollected PROTIME WITH INR [COAG] Stat Lab 03/13/19 09:47 Ordered PTT [COAG] Stat Lab 03/13/19 09:47 Ordered ROUTINE CULTURE [RM] Stat Lab 03/13/19 09:41 Uncollected TROPONIN T Stat Lab 03/13/19 09:47 Ordered URINALYSIS W/POSS RFLX CULT [URINALYSIS] Stat Lab 03/13/19 09:41 Uncollected 0.9% Sodium Chloride Inj [Ns] 1,000 ml Med 03/13/19 09:42 Discontinued .ROUTE As directed Oxygen Device Stat Oth 03/13/19 09:41 Active Result Diagrams: 03/13/19 09:42 03/13/19 09:42 - REASSESSMENT Reassessment #1 Time Reassessed: 10:09 (dr pond at bedside with pt due to hypotensive and bradycardia. ) Status: unchanged Reassessment #2 Time Reassessed: 10:15 (dr pond at bedside BP 103/46 HR 60) Status: improving Reassessment #3 Time Reassessed: 10:38 (dr pond is at [facility] speaking with and pt about poc) Status: unchanged - EKG 1 Time of EKG reading by physician:: 09:49 EKG Read and Signed by:: Vivek Pond EKG Interpretation (*Must complete 3 of following elements*): Abnormal Rate: 51 Rhythm: sinus bradycardia w/ premature supraventricular complexes [place]: normal QRS: other (low voltage QRS) [place] Interval: normal ST Wave: normal Comments: prolonged QT - XRAY 1 XRAY: Bilateral XRAY Study: Chest Impression: See EMR Report - CONSULTS/PCP/HOSPITALIST Notification #1 *Consult/PCP/Hospitalist*: hospitalist dr mike Time Discussed: 10:20 Consult Disposition: Admit Departure - Departure Date of Disposition Decision: 03/13/19 Time of Disposition Decision: 10:20 DIAGNOSIS: Hypotensive episode, Bradycardia Sepsis Qualifiers: Sepsis type: sepsis due to unspecified organism Sepsis acute organ dysfunction status: unspecified Qualified Code(s): A41.9 - Sepsis, unspecified organism Anemia Qualifiers: Anemia type: unspecified type Qualified Code(s): D64.9 - Anemia, unspecified Cellulitis Qualifiers: Site of cellulitis: extremity Site of cellulitis of extremity: lower extremity Laterality: unspecified laterality Qualified Code(s): L03.119 - Cellulitis of unspecified part of limb Disposition: ADMITTED INPATIENT 09 Certified Medical Emergency: Emergent Condition: Serious - Critical Care Note This patient required my direct & personal management of CC.: Yes Total Time (mins): 42 Critical Care Statement: This patient required my direct personal management to treat or rule out processes, the absence of which, could potentiallly result in sudden, clinically significant life or limb threatening deterioration. Attestation - Physician/ AMY Attestation Patient care was provided by Advanced Practice Provider:: No The physician spent face to face time with patient:: Yes Advanced Practice Provider documentation review:: Supervising physician onsite and consulted in the evaluation and care of this patient. The physician did have a face to face encounter with the patient. This chart was documented by the indicated scribe, (Beth Blackman Scribe) and accurately reflects the services I performed and decisions made by me, Vivek Pond MD, as attested by the provider's signature.
== END 2019-03-17 13:03 | disposition home health service (06) | DRG 308 ==
LOC: P.ED 09:35 → SUATTDRO 12:21 → ICU 12:21 → 2N 03-14 18:27
PROVIDERS: ATTEND Internal Medicine

== ENCOUNTER 2019-04-20 03:17 | Inpatient (IN) ==
--- NOTE | 2019-04-20 03:04 | EKG Report ---
Test Performed on : 04/20/2019 02:57:02 AM Test Reason : pain Blood Pressure : / mmHG Vent. Rate : 057 BPM Atrial Rate : 057 BPM P-R Int : 182 ms QRS Dur : 078 ms QT Int : 520 ms P-R-T Axes : 000 009 079 degrees QTc Int : 506 ms Sinus bradycardia. with marked sinus arrhythmia. with premature atrial complexes. Low voltage QRS Prolonged QT Abnormal ECG No previous ECGs available Unconfirmed Result
[2019-04-20 03:16] LABS: BE -1.4 mmoll (-3.0-3.0); BLOOD TYPE ARTERIAL; HCO3-(ACT) 23.9 mmoll (20.0-26.0); METHB 1.1 % (0.0-1.5); O2(CT) 9.5 mL/dL (15.0-23.0); O2HB 96.2 % (95.0-99.0); PCO2(98.6) 45 mmHg (35-45); PO2(98.6) 119 mmHg (60-100); SAMPLE BLOOD; SAO2 100.4 % (95.0-100.0); pH(98.6) 7.34 (7.35-7.45)
[~2019-04-20 03:17] MED LIST: GEODON ONE; NARCAN IV ONE; NARCAN ONE; NS 1,000 ML IV ONE; NS 1,000 ML ONE; STERILE WATER INJ. ONE
[2019-04-20 03:20] LABS: MODALITY CANNULA; THB 6.8 g/dL (11.5-17.4)
[2019-04-20] MEDS ORDERED: NARCAN IV ONE (03:45)
[2019-04-20 04:05] LABS: BASO# 0.03 X1000 (0.0-0.2); BASO% 0.3 % (0.0-0.8); EOS# 0.14 X1000 (0.0-0.7); EOS% 1.2 % (0.0-10.0); HEMATOCRIT 33.2 % (37.0-47.0); HEMOGLOBIN 9.7 g/dL (12.0-16.0); IMM GRAN# 0.12 X1000 (0.0-0.04); IMM GRAN% 1.1 % (0.0-0.5); LYMPH# 1.13 X1000 (1.2-3.4); MCH 22.5 PG (27-31); MCHC 29.2 g/dL (33-37); MONO# 0.72 X1000 (0.11-0.59); MONO% 6.4 % (1.7-9.3); MPV 10.8 FL (7.4-10.4); NEUT# 9.14 X1000 (1.4-6.5); PLT 278 X1000 (130-400); RBC 4.31 XMIL (4.2-5.4); RDW 16.8 % (11.5-14.5); WBC 11.28 X1000 (4.8-10.8)
--- NOTE | 2019-04-20 04:12 | PROVIDER DOCUMENTATION ---
HPI-Neurological Disorder - General Chief Complaint: Altered Mental Status Stated Complaint: AMS Time Seen by Provider: 04/20/19 03:17 Source: EMS, old records Allergies/Adverse Reactions: Patient Allergies Allergy/AdvReac Type Severity Reaction Status Date / Time butorphanol tartrate * Allergy Severe SHORTNESS Verified 04/20/19 07:44 [From Stadol] OF BREATH prochlorperazine edisylate * Allergy Severe SHORTNESS Verified 04/20/19 07:44 [From Compazine] OF BREATH prochlorperazine maleate * Allergy Severe SHORTNESS Verified 04/20/19 07:44 [From Compazine] OF BREATH codeine [Codeine] Allergy Intermediate HIVES Verified 04/20/19 07:44 ondansetron [From ZOFRAN ODT] Allergy Mild VOMITING Verified 04/20/19 07:44 butalbital [From Fioricet] Allergy CHEST PAIN Verified 04/20/19 07:44 caffeine [From Fioricet] Allergy CHEST PAIN Verified 04/20/19 07:44 ketorolac tromethamine * Allergy SWELLING Verified 04/20/19 07:44 [From Toradol] sulfamethoxazole Allergy NAUSEA/VOMI Verified 04/20/19 07:44 [From Bactrim] TING trimethoprim [From Bactrim] Allergy NAUSEA/VOMI Verified 04/20/19 07:44 TING Home Medications: Home Medication List Medication Instructions Recorded Confirmed Last Taken Type Levothyroxine Sodium 75 microgm PO DAILY 12/16/11 03/13/19 07/08/18 10:00 History Zonisamide [Zonegran] 2 cap PO BID 12/16/11 03/13/19 07/08/18 18:00 History Lisinopril 40 mg PO DAILY 08/04/12 03/13/19 07/08/18 10:00 History Hydralazine [Apresoline] 50 mg PO TID 01/03/17 03/13/19 07/08/18 18:00 History PRAVAstatin [Pravachol] 40 mg PO HS 03/29/18 03/13/19 07/08/18 18:00 History Sertraline HCl [Zoloft] 100 mg PO DAILY 03/29/18 03/13/19 07/08/18 10:00 History Metformin HCl [Metformin ER 1,000 mg PO BID 07/08/18 03/13/19 07/08/18 15:00 History Osmotic] Multivitamin [Multivitamins] 1 dose PO DAILY 07/08/18 02/16/19 07/08/18 10:00 History Alprazolam [Xanax] 0.5 mg PO Q12HR 10/24/18 02/16/19 Unknown History Oxycodone HCl/Acetaminophen 1 ea PO Q6HR PRN 12/12/18 02/16/19 Unknown History [Percocet 10-325 mg Tablet] Promethazine [Phenergan] 25 mg PO Q6H PRN PRN 12/12/18 02/16/19 Unknown History Amlodipine [Norvasc] 10 mg PO DAILY 03/13/19 03/13/19 Unknown History Aspirin EC 325 mg PO DAILY 03/13/19 03/13/19 Unknown History Furosemide [Lasix] 40 mg PO DAILY 03/13/19 03/13/19 Unknown History Pioglitazone [Actos] 30 mg PO DAILY 03/13/19 03/13/19 Unknown History Tizanidine [Zanaflex] 4 mg PO QHS 03/13/19 03/13/19 Unknown History Levofloxacin [Levaquin] 500 mg PO DAILY #14 tab 03/16/19 Unknown Rx Clonidine [Catapres] 0.1 mg PO BID #60 tab 03/17/19 Unknown Rx Levofloxacin [Levaquin] 500 mg PO DAILY tab 03/17/19 Unknown Rx Polyethylene Glycol 3350 [Miralax] 17 gm PO DAILY #30 powder, packet 03/17/19 Unknown Rx Spironolactone [Aldactone] 25 mg PO DAILY #120 tab 03/17/19 Unknown Rx Unobtainable [Home Meds 04/20/19 04/20/19 Unknown History Unobtainable] - History of Present Illness-Neuro Nature of Presenting Problem: Patient is a 74 year old obese white female, Inessa Jean,:[birth year], with history of chronic back pain (take oxycodone 10's daily), seizure disorder, lower extremity cellulitis,and diabetes who presents by EMS with elevated blood glucose over 500 and lethargy which did not respond to IV narcan. Patient was just seen in our ER over past 2 days for fall and dizziness and noted to have normal head CT and no injuries. Review of Systems - Adult - REVIEW OF SYSTEMS - ADULT ROS:: limited per condition Constitutional: reports: see HPI Past History - Adult - PAST MEDICAL HISTORY-ADULT Review of Records: reports: Old Records Reviewed, Nursing Assessment Review, Medications Reviewed, Social history reviewed & non-contributory. 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 Exam: other (nonfocal) Neurologic: other (nonfocal) - Glascow Coma Scale Best Eye Response: (2) open to pain Best Verbal Response: (4) confused conversation Best Motor Response: (5) localizes to pain Total Glascow Score: 11 Progress - PLAN OF CARE/RESULTS Progress/Plan/Lab Results: Laboratory Results - last 24 hr 04/20/19 04/20/19 04/20/19 03:07 03:50 03:50 WBC 11.28 H RBC 4.31 Hgb 9.7 L Hct 33.2 L MCV 77.0 L MCH 22.5 L MCHC 29.2 L RDW Std Deviation 16.8 H Plt Count 278 MPV 10.8 H Immature Gran % (Auto) 1.1 H Neut % (Auto) 81.0 H Lymph % (Auto) 10.0 L [place] % (Auto) 6.4 Eos % (Auto) 1.2 Baso % (Auto) 0.3 Immature Gran # (Auto) 0.12 H Neut # (Auto) 9.14 H Lymph # (Auto) 1.13 L [place] # (Auto) 0.72 H Eos # (Auto) 0.14 Baso # (Auto) 0.03 PT INR PTT (Actin FS) Specimen Type ARTERIAL Sample Site L BRACHIAL pH 7.34 L pCO2 45 pO2 119 H HCO3 23.9 Base Excess -1.4 Oxyhemoglobin 96.2 ABG O2 Sat (Calculated) 9.5 L ABG O2 Saturation 100.4 H ABG Carboxyhemoglobin 3.10 H ABG Methemoglobin 1.1 A-a O2 Difference 24.0 Total Hemoglobin 6.8 L Lactate 1.50 Liter Flow 2.0 Blood Gas Modality CANNULA FiO2 % 28.0 Sodium 138 Potassium 4.9 Chloride 102 Carbon Dioxide 20 L Anion Gap 16 BUN 30 H Creatinine 1.1 H Estimated GFR/1.73 m2 44 BUN/Creatinine Ratio 27 Glucose 247 H POC Glucose Calculated Osmolality 290 Calcium 9.4 Magnesium 2.1 Total Bilirubin 0.20 AST 80 H ALT 49 H Alkaline Phosphatase 59 Creatine Kinase 452 H Creatine Kinase Index 3.2 H CK-MB (CK-2) 14.65 H Troponin T Total Protein 7.6 Albumin 4.3 Globulin 3.0 Albumin/Globulin Ratio 1.0 Urine Source Urine Color Urine Turbidity Urine pH Ur Specific [place] Urine Protein Ur Glucose (Stick) Ur Ketones (Stick) Urine Blood Urine Nitrite Urine Bilirubin Urobilinogen Dipstick Urine Leukocytes Urine WBC (Auto) Urine RBC (Auto) U Epithel Cells (Auto) Urine Bacteria (Auto) Urine Opiates Screen Ur Oxycodone Screen Urine Methadone Screen U Propoxyphene Qual Ur Barbituates Screen Ur Tricyclics Screen Ur Phencyclidine Scrn Ur Amphetamines Screen U Methamphetamines Scrn U Benzodiazepines Scrn Urine Cocaine Screen U Cannabinoids Screen 04/20/19 04/20/19 04/20/19 03:50 03:50 05:25 WBC RBC Hgb Hct MCV MCH MCHC RDW Std Deviation Plt Count MPV Immature Gran % (Auto) Neut % (Auto) Lymph % (Auto) [place] % (Auto) Eos % (Auto) Baso % (Auto) Immature Gran # (Auto) Neut # (Auto) Lymph # (Auto) [place] # (Auto) Eos # (Auto) Baso # (Auto) PT 14.5 INR 1.07 PTT (Actin FS) 30.2 Specimen Type Sample Site pH pCO2 pO2 HCO3 Base Excess Oxyhemoglobin ABG O2 Sat (Calculated) ABG O2 Saturation ABG Carboxyhemoglobin ABG Methemoglobin A-a O2 Difference Total Hemoglobin Lactate Liter Flow Blood Gas Modality FiO2 % Sodium Potassium Chloride Carbon Dioxide Anion Gap BUN Creatinine Estimated GFR/1.73 m2 BUN/Creatinine Ratio Glucose POC Glucose Calculated Osmolality Calcium Magnesium Total Bilirubin AST ALT Alkaline Phosphatase Creatine Kinase Creatine Kinase Index CK-MB (CK-2) Troponin T 0.047 Total Protein Albumin Globulin Albumin/Globulin Ratio Urine Source CATH Urine Color YELLOW Urine Turbidity CLEAR Urine pH 6.0 Ur Specific [place] 1.018 Urine Protein 50 A Ur Glucose (Stick) TRACE Ur Ketones (Stick) NEGATIVE Urine Blood NEGATIVE Urine Nitrite NEGATIVE Urine Bilirubin NEGATIVE Urobilinogen Dipstick NORMAL Urine Leukocytes NEGATIVE Urine WBC (Auto) <10 Urine RBC (Auto) <10 U Epithel Cells (Auto) <10 Urine Bacteria (Auto) NEGATIVE Urine Opiates Screen Ur Oxycodone Screen Urine Methadone Screen U Propoxyphene Qual Ur Barbituates Screen Ur Tricyclics Screen Ur Phencyclidine Scrn Ur Amphetamines Screen U Methamphetamines Scrn U Benzodiazepines Scrn Urine Cocaine Screen U Cannabinoids Screen 04/20/19 04/20/19 05:25 05:42 WBC RBC Hgb Hct MCV MCH MCHC RDW Std Deviation Plt Count MPV Immature Gran % (Auto) Neut % (Auto) Lymph % (Auto) [place] % (Auto) Eos % (Auto) Baso % (Auto) Immature Gran # (Auto) Neut # (Auto) Lymph # (Auto) [place] # (Auto) Eos # (Auto) Baso # (Auto) PT INR PTT (Actin FS) Specimen Type Sample Site pH pCO2 pO2 HCO3 Base Excess Oxyhemoglobin ABG O2 Sat (Calculated) ABG O2 Saturation ABG Carboxyhemoglobin ABG Methemoglobin A-a O2 Difference Total Hemoglobin Lactate Liter Flow Blood Gas Modality FiO2 % Sodium Potassium Chloride Carbon Dioxide Anion Gap BUN Creatinine Estimated GFR/1.73 m2 BUN/Creatinine Ratio Glucose POC Glucose 215 H Calculated Osmolality Calcium Magnesium Total Bilirubin AST ALT Alkaline Phosphatase Creatine Kinase Creatine Kinase Index CK-MB (CK-2) Troponin T Total Protein Albumin Globulin Albumin/Globulin Ratio Urine Source Urine Color Urine Turbidity Urine pH Ur Specific [place] Urine Protein Ur Glucose (Stick) Ur Ketones (Stick) Urine Blood Urine Nitrite Urine Bilirubin Urobilinogen Dipstick Urine Leukocytes Urine WBC (Auto) Urine RBC (Auto) U Epithel Cells (Auto) Urine Bacteria (Auto) Urine Opiates Screen NONE DETECTED Ur Oxycodone Screen NONE DETECTED Urine Methadone Screen NONE DETECTED U Propoxyphene Qual NONE DETECTED Ur Barbituates Screen NONE DETECTED Ur Tricyclics Screen NONE DETECTED Ur Phencyclidine Scrn NONE DETECTED Ur Amphetamines Screen NONE DETECTED U Methamphetamines Scrn NONE DETECTED U Benzodiazepines Scrn PRESUMPTIVE POSITIVE A Urine Cocaine Screen NONE DETECTED U Cannabinoids Screen NONE DETECTED Orders Category Date Time Status Admit - [facility] Routine AdmDCTranf 04/20/19 04:27 Active Activity - Strict Bedrest ORDERED Care 04/20/19 04:26 Active Cardiac Monitoring DIRECTED Care 04/20/19 02:47 Completed Core Temperature ORDERED Care 04/20/19 02:49 Active FSBS/Accucheck Result Q1H Care 04/20/19 04:17 Completed [place] Cath Insertion ORDERED Care 04/20/19 04:33 Active IV Insertion ORDERED Care 04/20/19 02:48 Active Neurological Check Q2H Care 04/20/19 04:26 Active Notify MD of + Sepsis Screen NOW Care 04/20/19 02:48 Active Resuscitation Status Routine Care 04/20/19 04:26 Ordered Vital Signs Order ROUTINE Care 04/20/19 04:26 Active Z-Document. for Tele Applied ORDERED Care 04/20/19 04:28 Active NPO Diet 04/20/19 04:28 Active CHEST-1 VIEW [RAD] Stat Exams 04/20/19 02:[address] HEAD W/O CONTRAST [CT] Stat Exams 04/20/19 02:[address] PELVIS W/O CONTRAST [CT] Stat Exams 04/20/19 03:20 Completed ABG [RESP] Routine Lab 04/20/19 03:07 Completed BLOOD CULTURE [BLDCUL] Stat Lab 04/20/19 07:40 Results CBC WITH DIFF [HEME] Stat Lab 04/20/19 03:50 Completed CK PROFILE [SP CHEM] Stat Lab 04/20/19 03:50 Completed COMPREHENSIVE METABOLIC PANEL [CHEM] Stat Lab 04/20/19 03:50 Completed MAGNESIUM [CHEM] Stat Lab 04/20/19 03:50 Completed PROTIME WITH INR [COAG] Stat Lab 04/20/19 03:50 Completed PTT [COAG] Stat Lab 04/20/19 03:50 Completed TROPONIN T Stat Lab 04/20/19 03:50 Completed URINALYSIS W/POSS RFLX CULT [URINALYSIS] Stat Lab 04/20/19 05:25 Com[address] URINE DRUG SCREEN PL Stat Lab 04/20/19 05:25 Completed 0.9% Sodium Chloride Inj [Ns] 1,000 ml Med 04/20/19 02:45 Discontinued .ROUTE As directed 0.9% Sodium Chloride Inj [Ns] 1,000 ml Med 04/20/19 04:26 Discontinued IV 125 mls/hr 0.9% Sodium Chloride Inj [Ns] 1,000 ml Med 04/20/19 02:50 Discontinued IV 999 mls/hr Insulin Human Regular ([place] [Humulin R ([place])] Med 04/20/19 04:31 Discontinued See Protocol SUBQ NOW ONE Insulin Human Regular [Humulin R] Med 04/20/19 04:16 Discontinued 10 unit IV NOW ONE Naloxone [Narcan] Med 04/20/19 02:53 Discontinued 0.2 mg IV NOW ONE Naloxone [Narcan] Med 04/20/19 02:45 Discontinued 2 mg .ROUTE .STK-MED ONE Naloxone [Narcan] Med 04/20/19 03:45 Discontinued 2 mg IV NOW ONE Piperacillin/Tazobactam [Zosyn] 3.375 gm Med 04/20/19 04:18 Discontinued 0.9% Sodium Chloride Inj [Ns] 50 ml IV NOW Water, Sterile Inj [Sterile Water Inj.] Med 04/15/19 11:59 Discontinued 10 ml .ROUTE .STK-MED ONE Ziprasidone [Geodon] Med 04/15/19 11:58 Discontinued 20 mg .ROUTE .STK-MED ONE Oxygen Device Stat Oth 04/20/19 02:48 Completed Telemetry [OM.EQ] Routine Oth 04/20/19 04:26 Active EKG [EKG] Stat Ther 04/20/19 02:50 Draft Transfer/Admit Order [TRANSFER] Routine Transfer 04/20/19 04:29 Completed Result Diagrams: 04/20/19 03:50 04/20/19 03:50 - EKG 1 Time of EKG reading by physician:: 02:59 EKG Read and Signed by:: Christiano Hester Rate: 57 Rhythm: sinus carlotta [place]: normal QRS: normal Comments: no STEMI - XRAY 1 XRAY Study: Chest XRAY Interpretation: NAD - CT/MRI 1 CT Study: Head, Pelvis CT Results: NAD - CONSULTS/PCP/HOSPITALIST Notification #1 *Consult/PCP/Hospitalist*: Dr. Almanza, hospitalist at [facility] Time Discussed: 04:15 Reason/Comments: place on admit hold to admit to ICU Consult Disposition: Admit - CHANGE OF SHIFT REPORT (ED Provider) 1 Report Given and Care Transferred to:: Dr. Sanz Time of Transfer: 07:00 Items Pending: Physician Consult/Arrival (assist in transfer to [facility] ICU) Departure - Departure Date of Disposition Decision: 04/20/19 Time of Disposition Decision: 07:56 DIAGNOSIS: Altered mental state Qualifiers: Altered mental status type: somnolence Qualified Code(s): R40.0 - Somnolence Stasis dermatitis Qualifiers: Laterality: bilateral Qualified Code(s): I87.2 - Venous insufficiency (chronic) (peripheral) Disposition: ADMITTED INPATIENT 09 Certified Medical Emergency: Emergent Condition: Serious - Critical Care Note This patient required my direct & personal management of CC.: Yes Total Time (mins): 125 Critical Care Statement: This patient required my direct personal management to treat or rule out processes, the absence of which, could potentiallly result in sudden, clinically significant life or limb threatening deterioration. Attestation - Physician/ AMY Attestation Patient care was provided by Advanced Practice Provider:: No The physician spent face to face time with patient:: Yes Advanced Practice Provider documentation review:: Supervising physician onsite and consulted in the evaluation and care of this patient. The physician did have a face to face encounter with the patient.
[2019-04-20] MEDS ORDERED: HUMULIN R IV ONE (04:16)
[2019-04-20] MEDS ORDERED: ZOSYN 3.375 GM in NS 50 ML IV ONE (04:18)
[2019-04-20 04:21] LABS: INR 1.07; PROTIME 14.5 Seconds (11.0-16.0)
[2019-04-20 04:22] LABS: ALBUMIN 4.3 g/dL (3.5-5.0); CALCIUM 9.4 mg/dL (8.8-10.2); CREATININE 1.1 mg/dL (0.5-0.9); MAGNESIUM 2.1 mg/dL (1.5-2.7); POTASSIUM 4.9 mmol/L (3.5-5.1); PTT 30.2 Seconds (22.3-41.8); TOTAL BILIRUBIN 0.2 mg/dL (0.20-1.00); TOTAL PROTEIN 7.6 g/dL (6.3-8.3)
[2019-04-20] MEDS ORDERED: NS 1,000 ML IV ONE (04:26)
[2019-04-20] MEDS ORDERED: HUMULIN R (PARKWAY) SUBQ ONE (04:31)
[2019-04-20 04:37] LABS: CK INDEX 3.2 (0.0-2.5); CK-MB 14.65 ng/mL (0.0-5.0)
--- NOTE | 2019-04-20 05:08 | Diag Imaging Result Doc PS360 ---
EXAM: CHEST-1 VIEW HISTORY: sob TECHNIQUE: Single view COMPARISON: None. FINDINGS: Poor inspiratory effort. There is a right sided pacemaker type device. Mild vascular distention. No pleural effusions identified. No consolidation. Right breast implant. IMPRESSION: Mildly prominent heart with mild pulmonary Electronically signed by Yonatan Scott 04/20/2019 5:06 AM
[2019-04-20 05:47] LABS: URINE SOURCE CATH
[2019-04-20 05:50] LABS: BILIRUBIN URINE NEGATIVE (NEGATIVE); BLOOD URINE NEGATIVE (NEGATIVE); COLOR YELLOW; GLUCOSE URINE TRACE mg/dL (NEGATIVE); KETONE URINE NEGATIVE (NEGATIVE); LEUKOCYTES URINE NEGATIVE (NEGATIVE); NITRITE URINE NEGATIVE (NEGATIVE); PROTEIN URINE 50 mg/dL (NEGATIVE); SP GRAVITY URINE 1.018; TURBIDITY URINE CLEAR (CLEAR); UR EPITHELIAL CELLS <10 /HPF (<10); URINE BACTERIA NEGATIVE /HPF; URINE RBC <10 /HPF (<10); URINE WBC <10 /HPF (<10); UROBILINOGEN URINE NORMAL (NORMAL)
[2019-04-20 06:00] LABS: UR AMPHETAMINES QUAL NONE DETECTED (NONE DETECT); UR BARBITUATES QUAL NONE DETECTED (NONE DETECT); UR BENZODIAZEPIN QUAL PRESUMPTIVE POSITIVE (NONE DETECT); UR CANNABINOIDS QUAL NONE DETECTED (NONE DETECT); UR COCAINE QUAL NONE DETECTED (NONE DETECT); UR METHADONE QUAL NONE DETECTED (NONE DETECT); UR METHAMPHETAMINE QUAL NONE DETECTED (NONE DETECT); UR OPIATES QUAL NONE DETECTED (NONE DETECT); UR OXYCODONE QUAL NONE DETECTED (NONE DETECT); UR PCP QUAL NONE DETECTED (NONE DETECT); UR PROPOXYPHENE QUAL NONE DETECTED (NONE DETECT); UR TCA QUAL NONE DETECTED (NONE DETECT)
--- NOTE | 2019-04-20 06:05 | Diag Imaging Result Doc PS360 ---
EXAM: CT HEAD W/O CONTRAST HISTORY: AMS TECHNIQUE: CT head without intravenous contrast COMPARISON: None. FINDINGS: No parenchymal hemorrhage. No epidural or subdural hematoma. No subarachnoid hemorrhage. Mild atrophy. Borderline mild decreased density in the left occipital lobe. No mass identified on this noncontrasted exam. No hydrocephalus. No sinus opacification. IMPRESSION: 1.No hemorrhage 2.Mild atrophy 3.Borderline hypodense area in the left occipital region. An MRI is recommended to determine if there has been a recent infarct. 4.A preliminary report was given at 4:01 AM This exam was performed using automated exposure control, adjustment of mA or kV according to patient size, and/or use of iterative reconstruction technique. Electronically signed by Yonatan Scott 04/20/2019 6:03 AM
--- NOTE | 2019-04-20 06:44 | Diag Imaging Result Doc PS360 ---
EXAM: CT PELVIS W/O CONTRAST HISTORY: left hip injury TECHNIQUE: CT bony pelvis without contrast. COMPARISON: None. Plain films are recommended prior to CT. FINDINGS: No fracture. No dislocation. No widening of the pubic symphysis. Prominent stool in the colon. The uterus has been removed. The urinary bladder is distended and appears normal. IMPRESSION: No acute bony injury A preliminary report was given at 4:27 AM This exam was performed using automated exposure control, adjustment of mA or kV according to patient size, and/or use of iterative reconstruction technique. Electronically signed by Yonatan Scott 04/20/2019 6:41 AM
[2019-04-20] MEDS ORDERED: RID LICE KILLING SHAMPOO TOP ONE (09:14)
[2019-04-20] MEDS: LEVAQUIN 500 MG/D5W 500 MG/100 ML IVPB IV SCH (10:39)
[2019-04-20] MEDS: NS 1,000 ML IV SCH ×2 (10:40→17:22)
--- NOTE | 2019-04-20 11:22 | PROGRESS NOTE ---
DATE: 04/20/2019 SUBJECTIVE: I have seen and examined Ms. Jean today. She is in the ICU at [facility]. No family member was at the bedside. The nurses were applying the permethrin shampoo on her because of head lice. Ms Jean refers to be doing slightly better than before. She initially presented to [facility] early this morning because of altered mental status. We understand that Ms. Jean is a chronic pain patient on oxycodone, seizure disorder. EMS was called because she was found altered. On arrival, they found her glucose was about 500. They gave her IV Narcan, but there was very little response, so she was sent to [facility] where she was transferred over here for higher level of care. This morning, as I said, Ms. Jean refers to be doing a little better. OBJECTIVE: Vital Signs: Her current vital signs, blood pressure is 163/65, pulse of 72, respirations 16, temperature 97 degrees. General: Ms. Jean is a 74-year-old elderly female. She is in bed. She is not in any cardiopulmonary distress, but she is quite lethargic. HEENT: Mucosa is pink and moist. Anicteric. Acyanotic. Neck: The neck is supple. Chest: Good air entry bilaterally. There were no crepitations, no rhonchi. Cardiovascular: Regular rate and rhythm. Gastrointestinal: The abdomen was soft, distended, but nontender. Extremities: No pedal edema. In the lower extremities, there are bilateral stasis erythematous changes associated with superficial ulcerations. Central Nervous System: Patient is very lethargic, but she was able to tell me that she is in the hospital. She is just disoriented to time. She is able to move all extremities. IMAGING STUDIES: Show a CT scan which was done early this morning that shows mild atrophy, borderline hypodense area in the left occipital region. MRI is recommended. A chest x-ray shows mild prominent heart with pulmonary edema. A pelvic CT scan shows no acute bony abnormality. ASSESSMENT AND PLAN: 1. Altered mental status secondary to global encephalopathy, presumably metabolic derangement. However, drug-induced encephalopathy is also extremely possible due to the fact that Ms. Jean is on a lot of medications at home which can potentially make her confused including Zonegran, sertraline, alprazolam, oxycodone, Phenergan, tizanidine. 2. Also note that Ms. Jean's head CT scan did make mention of an hypodense area in the left occipital area. We will be waiting to get an MRI of the of the brain to rule out any acute stroke. 3. Uncontrolled diabetes mellitus. We will continue with insulin regimen. 4. History of hypertension. 5. History of atrial fibrillation. 6. Bilateral stasis dermatopathy. 7. Dyslipidemia. 8. Hypothyroidism. 9. Head lice with possible bedbugs. The patient is currently on contact precautions. cc: Davonte Márquez MD
--- NOTE | 2019-04-20 11:38 | HISTORY AND PHYSICAL ---
PRIMARY CARE PROVIDER: None. CHIEF COMPLAINT: Probable overdose and elevated blood glucose. HISTORY OF PRESENT ILLNESS: Ms. Jean is a 74-year-old female who is well known to our service with recent admission on 03/13/2019 and discharged on 03/17/2019 for syncopal episodes and symptomatic bradycardia as well as bilateral lower extremity stasis with dermopathy with superimposed cellulitis that was positive for klebsiella oxytocin proteus penneri that she went home on p.o. Levaquin with. It was also noted at that time that she had head lice as well as bed bugs. At that time they felt she was also having a benzodiazepine overdose on previous admission that she left AMA. She has been known to take more of her medications than what is prescribed to her. She once again presented to the ED with altered mental status by EMS with blood sugars over 500 and lethargy. She did not respond to IV Narcan or additional doses of Narcan given in the ED. She had previous visits to the ED for fall and dizziness. Head CT done on the showed no evidence of acute intracranial disease. A head CT done today showed a borderline hypodense area in the left occipital region. Recommended a follow-up with MRI. There has not been a recent infarct. Her drug screen is positive for benzodiazepines. She does have a white count of 11. White count was elevated at 11. Kidney function appears to be at baseline. CK and CK-MB are all elevated. Troponin 0.047. Tox screen was positive for benzodiazepines. She was transferred to [facility] ICU for higher level of care and monitoring. She still remains lethargic. She does wake up to voice but only mumbles and does not follow any commands or answer any questions. PAST MEDICAL HISTORY: 1. Chronic atrial fibrillation. 2. Type 2 diabetes. 3. Hypertension. 4. Anemia of chronic disease. 5. Hypothyroidism. 6. Dyslipidemia. 7. Osteoarthritis. 8. Bilateral lower extremity stasis dermopathy with superimposed cellulitis. 9. Head lice and bed bugs on previous admissions as well as this one. 10. Dyslipidemia. 11. Hypothyroidism. PAST SURGICAL HISTORY: 1. Appendectomy. 2. Hysterectomy. 3. Shoulder replacement. 4. Some type of brain stimulator in her chest. SOCIAL HISTORY: She lives with her . She lives at home with home health with [facility]. Previously there was a complaint made to [facility] secondary to a niece changing a PICC line without being qualified as well as hoarding in the home and the patient being admitted on previous admission for poor hygiene and lice and bed bugs. I believe Cyber Security Analyst will be involved again this time as well. However, they said the patient was competent and mobile, so they did not get involved. ALLERGIES: Stadol, Compazine, codeine, Zofran, Fioricet, tramadol and Bactrim. HOME MEDICATIONS: Are being compiled. REVIEW OF SYSTEMS: The patient is lethargic. She did wake up to voice. However, she did not answer any questions. She goes right back to sleep. No family at bedside. PHYSICAL EXAMINATION: VITAL SIGNS: Temperature is 97 degrees, heart rate 72, respirations 16, blood pressure 163/65, O2 is 100% on 2 L nasal cannula. GENERAL: Ms. Jean is a 74-year-old female who is lying in the ICU. She wakes up to voice. She does not follow any commands. She is not answering questions. Very lethargic, but in no acute distress. HEENT: Atraumatic, normocephalic. PERRL. NECK: Supple. Trachea midline. CARDIOVASCULAR: S1, S2 appreciated. No murmurs, gallops, or rubs noted. RESPIRATORY: Lung sounds clear bilaterally decreased in the bases. GASTROINTESTINAL: Obese, soft, nontender, nondistended. Hypoactive bowel sounds 4 quads. She is a belly breather. EXTREMITIES: She does have bilateral chronic lower extremity stasis dermopathy with superimposed cellulitis. NEUROLOGIC: Again, patient is lethargic. She did not follow any commands or answer any questions. Hard to assess. REVIEW OF SYSTEMS: Hard to assess secondary to the patient being lethargic. Everything I have obtained was taken from the EMR. DIAGNOSTIC DATA: Head CT: No hemorrhage, mild atrophy, borderline hypodensity in the left occipital region. MRI recommended to determine that there has been a recent infarct. Chest x- ray: Mild prominent heart with mild pulmonary edema. Pelvis CT: No acute bony injury. EKG: Sinus bradycardia with marked sinus rhythm with PACs at 57 beats per minute. LABORATORY DATA: White count 11, hemoglobin and hematocrit 9 and 33, platelet count is 278,000. ABG, pH 7.34, pCO2 45, PO2 119, base excess -1.4, O2 was 100% on 2 L nasal cannula. Sodium 138, potassium 4.9, BUN 30, creatinine 1.1, blood glucose was 247, magnesium 2.1, total bilirubin 0.20, AST 80, ALT 49, CK is 3.2, CK-MB 14.65, troponin 0.047. Urinalysis is negative for bacteria negative for nitrates. Tox screen positive for benzodiazepines. ASSESSMENT AND PLAN: 1. Probable overdose on benzodiazepine. The patient did not respond to Narcan. However, she does not have any opiates in her system. We will continue with frequent neurological checks. Monitoring in the ICU, IV fluids. 2. Altered mental status, questionable overdose versus some cerebrovascular accident event. CT does recommend a follow-up with a brain MRI, which we will do in the a.m. when the patient has been stabilized. 3. Bilateral lower extremity stasis dermopathy with superimposed cellulitis. Last culture was positive for Klebsiella oxytocin Proteus penneri. She continues to have erythema to bilateral lower extremities. We will continue with IV Levaquin. 4. Transaminitis. We will continue with IV hydration. We will recheck her liver function in the a.m. and go over her home medications when reconciled and order an abdominal ultrasound if needed in the a.m. 5. Elevated CK. We will continue with IV fluids. Continue to trend serial CKs and troponins. 6. Chronic kidney disease. Patient appears to be at her baseline. 7. Chronic atrial fibrillation, stable. 8. Hypertension. Blood pressure stable. 9. Hypothyroidism. 10. Dyslipidemia. We will hold any statin given her liver function. 11. Osteoarthritis. 12. Diabetes mellitus type 2 [address] her on sliding scale with pattern blood sugars and re-initiate any home medications when patient is more awake and home medications have been verified. 13. Head lice and bed bugs. The patient has been placed on isolation. We will do appropriate lice killing shampoo. 14. Further recommendation to follow physician evaluation, laboratory and diagnostic data. Dictated by CHICA Woodard for Davonte Márquez MD cc: Davonte Márquez MD [facility]
[2019-04-20] MEDS: HUMALOG SUBQ SCH ×3 (11:44→21:43)
[2019-04-20 12:23] LABS: CK INDEX 4.4 (0.0-2.5); CK-MB 24.49 ng/mL (0.0-5.0)
[2019-04-20 18:45] LABS: CK INDEX 4.8 (0.0-2.5); CK-MB 20.9 ng/mL (0.0-5.0)
[2019-04-21] MEDS: NS 1,000 ML IV SCH ×2 (01:23→05:57)
[2019-04-21 02:45] LABS: CK INDEX 5.1 (0.0-2.5); CK-MB 12.31 ng/mL (0.0-5.0)
[2019-04-21 07:12] LABS: AGAP 14; ALB/GLOB RATIO 0.9; ALBUMIN 2.9 g/dL (3.5-5.0); ALKALINE PHOSPHATASE 44 U/L (32-104); BUN 18 mg/dL (8-22); CALCIUM 8.6 mg/dL (8.8-10.2); CHLORIDE 105 mmol/L (98-107); COSMO 283; CREATININE 0.8 mg/dL (0.5-0.9); ESTIMATED GFR > 60; GLUCOSE 127 mg/dL (70-104); GOT 76 U/L (10-30); GPT 56 U/L (10-36); POTASSIUM 4.2 mmol/L (3.5-5.1); SODIUM 140 mmol/L (136-145); TCO2 21 mmol/L (25-35); TOTAL BILIRUBIN < 0.15 mg/dL (0.20-1.00); TOTAL PROTEIN 6.3 g/dL (6.3-8.3)
[2019-04-21] MEDS: HUMALOG SUBQ SCH ×4 (07:20→21:00)
[2019-04-21 07:52] LABS: BASO# 0.01 X1000 (0.0-0.2); BASO% 0.2 % (0.0-0.8); EOS# 0.39 X1000 (0.0-0.7); EOS% 6.2 % (0.0-10.0); HEMATOCRIT 30.6 % (37.0-47.0); HEMOGLOBIN 8.8 g/dL (12.0-16.0); IMM GRAN# 0.05 X1000 (0.0-0.04); IMM GRAN% 0.8 % (0.0-0.5); LYMPH# 1.15 X1000 (1.2-3.4); LYMPH% 18.2 % (20.5-51.1); MCH 22.7 PG (27-31); MCHC 28.8 g/dL (33-37); MCV 78.9 FL (81-99); MONO# 0.37 X1000 (0.11-0.59); MONO% 5.9 % (1.7-9.3); MPV 10.7 FL (7.4-10.4); NEUT# 4.35 X1000 (1.4-6.5); NEUT% 68.7 % (42.2-75.2); PLT 267 X1000 (130-400); RBC 3.88 XMIL (4.2-5.4); RDW 16.5 % (11.5-14.5); WBC 6.32 X1000 (4.8-10.8)
--- NOTE | 2019-04-21 07:53 | Diag Imaging Result Doc PS360 ---
EXAM: CHEST-PORTABLE INDICATION: follow up TECHNIQUE: One view COMPARISON: 04/20/2019 FINDINGS: Mild pulmonary venous congestion has improved. No new consolidation is identified. Cardiac silhouette is stable. IMPRESSION: Improvement in the mild pulmonary venous congestion. Electronically signed by Nolan Davis 04/21/2019 7:51 AM
--- NOTE | 2019-04-21 08:01 | EKG Report ---
Test Performed on : 04/21/2019 07:20:40 AM Test Reason : reassess Blood Pressure : / mmHG Vent. Rate : 090 BPM Atrial Rate : 090 BPM P-R Int : 184 ms QRS Dur : 080 ms QT Int : 384 ms P-R-T Axes : 009 001 028 degrees QTc Int : 469 ms Normal sinus rhythm. Possible Anterior infarct , age undetermined Abnormal ECG When compared with ECG of 18-APR-2019 13:58, (Unconfirmed) No significant change was found Confirmed by John IVEY, Alex Spear ([id number]) on 04/22/2019 10:19:41 AM
[2019-04-21] MEDS: PRINIVIL PO SCH (08:37)
[2019-04-21] MEDS: NORVASC PO SCH (08:37)
[2019-04-21] MEDS ORDERED: SYNTHROID PO ONE (11:00)
[2019-04-21] MEDS: LEVAQUIN 500 MG/D5W 500 MG/100 ML IVPB IV SCH (11:36)
--- NOTE | 2019-04-21 14:19 | PROGRESS NOTE ---
DATE: 04/21/2019 SUBJECTIVE: This morning, Ms. Jean refers to be doing a lot better. No new complaints. Has not had any more syncopal attacks. OBJECTIVE: Vital signs: Blood pressure is 179/71, pulse of 89, respirations 15, temperature is 97.9 degrees. General: Ms. Jean is a 74-year-old female. She is in bed. No distress. Mucosa is pink and moist. Anicteric. Acyanotic. Neck: Supple. Chest: Good air entry bilaterally. No crepitations. No rhonchi. Cardiovascular: Regular rate and rhythm. No murmurs, no rubs, no gallops Gastrointestinal: Abdomen is soft, distended but nontender. There is a lot of erythematous rash in between the inguinal region. Extremities: Bilateral stasis. Skin: Dermatopathy with superficial ulcerations. LABORATORY DATA: WBC is down to 6.32, hemoglobin is 8.8, platelet count of 267,000. Chemistry is also reviewed. Creatinine has normalized. AST and ALT are trending down. INTAKE AND OUTPUT: Urine output was 1800. Patient is currently positive balance of 20. MEDICATIONS: Have all been reviewed. ASSESSMENT: 1. Altered mental status on presentation secondary to metabolic and drug-induced encephalopathy. 2. Uncontrolled diabetes mellitus, improved with insulin regimen. 3. History of paroxysmal atrial fibrillation. Patient is currently in sinus rhythm with adequate rate. 4. Bilateral stasis dermatopathy with ulceration. Cultures grew Klebsiella oxytoca and Proteus penneri in February last year. 5. Hypothyroidism. Patient is currently on levothyroxine. 6. Head lice with possible bedbugs. Patient has been treated with permethrin. 7. Abnormal CT scan with hypodense area in the left occipital area. The patient does not show any neurological deficit. We will still get an MRI today to have a better delineation. PLAN: In general, I think Ms. Jean's altered mental status has significantly improved. She is now more alert. She is conversational. We are going to remove the Kapadia catheter. We are going to consult Wound Care for the stasis dermatopathy with the ulcers. We will also transfer her from the ICU to medical floor. She is pending an MRI today. cc: Davonte Márquez MD
[2019-04-22] MEDS ORDERED: APRESOLINE IV PRN (01:33)
[2019-04-22] MEDS: SYNTHROID PO SCH ×2 (07:02→07:15)
[2019-04-22] MEDS: HUMALOG SUBQ SCH ×2 (07:03→11:24)
[2019-04-22 08:25] LABS: HEMATOCRIT 33.2 % (37.0-47.0); HEMOGLOBIN 9.8 g/dL (12.0-16.0); MCH 22.7 PG (27-31); MCHC 29.5 g/dL (33-37); MCV 76.9 FL (81-99); MPV 9.7 FL (7.4-10.4); RBC 4.32 XMIL (4.2-5.4); RDW 16.3 % (11.5-14.5); WBC 8.84 X1000 (4.8-10.8)
[2019-04-22] MEDS ORDERED: LANTUS INSULIN SUBQ SCH (09:00)
[2019-04-22 09:34] LABS: AGAP 14; ALBUMIN 3.3 g/dL (3.5-5.0); BUN 13 mg/dL (8-22); CALCIUM 9.2 mg/dL (8.8-10.2); CHLORIDE 95 mmol/L (98-107); COSMO 269; CREATININE 0.7 mg/dL (0.5-0.9); ESTIMATED GFR > 60; GLUCOSE 143 mg/dL (70-104); PHOSPHORUS 2.1 mg/dL (2.7-4.5); POTASSIUM 3.5 mmol/L (3.5-5.1); SODIUM 133 mmol/L (136-145); TCO2 24 mmol/L (25-35)
[2019-04-22 11:17] VITALS: BP 172/68
[2019-04-22] MEDS: LEVAQUIN 500 MG/D5W 500 MG/100 ML IVPB IV SCH (11:43)
[2019-04-22] MEDS: NORVASC PO SCH (11:43)
[2019-04-22] MEDS: PRINIVIL PO SCH (11:43)
--- NOTE | 2019-04-23 12:42 | DISCHARGE SUMMARY ---
ADMISSION DATE: 04/20/2019 DISCHARGE DATE: 04/22/2019 DISPOSITION: Home. FOLLOW-UP: Will be with Dr. Oquendo. CONSULTATION DURING THIS ADMISSION: None. INVASIVE PROCEDURES DONE DURING THIS ADMISSION: None. IMAGING STUDIES OF SIGNIFICANCE: 1. A CT scan of the head showed no hemorrhage, mild atrophy, borderline hypodense area in the left occipital region. 2. A CT scan of the chest showed mild prominent heart with pulmonary vasculature. 3. A CT scan of the pelvis showed no acute bony injury. 4. Repeat chest x-ray show improvement in the mild pulmonary venous congestion. ADMISSION DIAGNOSIS: 1. Probable overdose on benzos. 2. Altered mental status. 3. Bilateral lower extremity stasis dermatopathy. 4. Transaminitis. 5. Hypothyroidism. DIAGNOSIS AT THE TIME OF DISCHARGE: 1. Altered mental status on presentation secondary to metabolic and drug-induced encephalopathy. 2. Uncontrolled diabetes mellitus, improved with insulin regimen. 3. Bilateral stasis dermatopathy with superimposed infection. Cultures had grown Klebsiella oxytoca and Proteus penneri in February. 4. Hypothyroidism. 5. Head lice and bedbugs noted on admission. 6. Abnormal CT scan with hypodense area in the left occipital area. Unfortunately Ms. Jean could not do an MRI because of a vagal nerve stimulator that she has on her chest wall. 7. History of chronic atrial fibrillation. DISCHARGE MEDICATIONS: 1. Levothyroxine 75 mcg p.o. daily. 2. Lisinopril 40 mg p.o. daily. 3. Hydralazine 50 mg 3 times per day. 4. Pravachol 40 mg p.o. at bedtime. 5. Sertraline 100 mg p.o. daily. 6. Metformin 1000 mg b.i.d. 7. Xanax 0.5 p.o. q. 12. 8. Aspirin 325 p.o. daily. 9. Lasix 40 mg p.o. daily. 10. Pioglitazone 30 mg p.o. daily. 11. Amlodipine 10 mg p.o. daily. 12. Levofloxacin to be continued. 13. Spironolactone to 25 mg p.o. daily. 14. Klonopin 0.5 mg p.o. daily. MEDICATIONS THAT HAVE BEEN DISCONTINUED UNTIL PATIENT DISCUSSES WITH PRIMARY CARE: 1. Zonisamide. 2. Percocet. 3. Tizanidine. PRESENTING COMPLAINT: Altered mental status, elevated glucose. HISTORY OF PRESENTING COMPLAINT: Ms. Jean is a 74-year-old elderly female, morbidly obese with BMI of 43.8, who has multiple comorbidities presented to the emergency room initially at [place] because of altered mental status. Patient was found lethargic at home. I understand Narcan was given to her initially, but there was no adequate response. She was found to have a glucose level of over 500. Initial CT scan did not show acute abnormality, but an MRI was recommended for some chronic changes that was found. The patient's urine drug screen was positive for benzodiazepine. She was admitted to the ICU for higher level of care. HOSPITAL COURSE: Ms. Jean was admitted to the ICU, was initially fluid resuscitated and all her home psychotropic medications were withheld. Glucose was also managed with insulin regimen throughout the hospital course. Ms. Jean continues to improve. Mentation got better. No focal deficit here. She became more alert and more conversational. She started eating. She was transferred from the ICU to medical floor and her management continued on the medical floor. Ms. Jean's glucose became normalized. This morning it was 148. I have addressed Ms. Jean needs to be on so many psychotropic medications, some of which she is not able to give me a clear reason why she has been on that. We have advised that she follows up with Dr. Oquendo before she start taking those medication back. We think her presentation was remarkably related to all those medications that can make her remarkably drowsy and altered in combination with metabolic encephalopathy. Ms. Jean is now clinically stable. We think she can be discharged. She is going to go home with home health to address the chronic lower extremity wounds and she will follow up with Dr. Oquendo. All the discharge instructions have been discussed with her and she voiced understanding. Time spent for discharge is 38 minutes. This morning Ms. Jean's vitals have all been reviewed. Her physical exam for most part is unchanged. cc: MD Gabi Brian MD
== END 2019-04-22 14:50 | disposition home or self-care (01) | DRG 91 ==
LOC: EDBD → P.ED 03:17 → ICU 06:48 → SUATTDRO 06:48 → MERGE 06:48 → ICU 07:56 → 4N 04-21 23:01
PROVIDERS: ATTEND Internal Medicine

== ENCOUNTER 2019-05-09 16:10 | Inpatient (IN) ==
[2019-05-09] MEDS ORDERED: DUONEB (A & A) ONE (16:36)
[2019-05-09 16:45] LABS: BE -2.5 mmoll (-3.0-3.0); BLOOD TYPE ARTERIAL; HCO3-(ACT) 22.7 mmoll (20.0-26.0); METHB 1.2 % (0.0-1.5); O2(CT) 13.2 mL/dL (15.0-23.0); PCO2(98.6) 39 mmHg (35-45); PO2(98.6) 57 mmHg (60-100); SAMPLE BLOOD; SAO2 90.2 % (95.0-100.0); pH(98.6) 7.37 (7.35-7.45)
[2019-05-09 16:48] LABS: ALLEN TEST NO; MODALITY CANNULA
[2019-05-09] MEDS ORDERED: DUONEB (A & A) INH ONE (17:09)
[2019-05-09 17:15] LABS: BASO# 0.04 X1000 (0.0-0.2); BASO% 0.3 % (0.0-0.8); EOS# 0.43 X1000 (0.0-0.7); EOS% 2.9 % (0.0-10.0); HEMATOCRIT 34.5 % (37.0-47.0); HEMOGLOBIN 9.9 g/dL (12.0-16.0); IMM GRAN# 0.04 X1000 (0.0-0.04); IMM GRAN% 0.3 % (0.0-0.5); LYMPH# 4.61 X1000 (1.2-3.4); LYMPH% 30.9 % (20.5-51.1); MCH 22.6 PG (27-31); MCHC 28.7 g/dL (33-37); MCV 78.6 FL (81-99); MONO# 1.05 X1000 (0.11-0.59); MPV 10.4 FL (7.4-10.4); NEUT# 8.75 X1000 (1.4-6.5); NEUT% 58.6 % (42.2-75.2); PLT 373 X1000 (130-400); RBC 4.39 XMIL (4.2-5.4); RDW 18.2 % (11.5-14.5); WBC 14.92 X1000 (4.8-10.8)
[2019-05-09 17:17] LABS: AGAP 16; ALBUMIN 3.9 g/dL (3.5-5.0); ALKALINE PHOSPHATASE 63 U/L (32-104); BUN 18 mg/dL (8-22); CALCIUM 9.3 mg/dL (8.8-10.2); CHLORIDE 100 mmol/L (98-107); CK PROFILE 100 U/L (24-173); COSMO 292; CREATININE 0.8 mg/dL (0.5-0.9); ESTIMATED GFR > 60; GLUCOSE 397 mg/dL (70-104); GOT 19 U/L (10-30); GPT 11 U/L (10-36); MAGNESIUM 1.9 mg/dL (1.5-2.7); POTASSIUM 3.8 mmol/L (3.5-5.1); SODIUM 137 mmol/L (136-145); TCO2 21 mmol/L (25-35); TOTAL PROTEIN 7.7 g/dL (6.3-8.3)
[2019-05-09] MEDS ORDERED: LASIX IV ONE (17:25)
[2019-05-09] MEDS ORDERED: ZOFRAN IV PRN ×2 (17:44→17:46)
[2019-05-09] MEDS ORDERED: TYLENOL PO PRN (17:44)
[2019-05-09 17:45] LABS: URINE SOURCE CATH
[2019-05-09] MEDS ORDERED: APRESOLINE PO ONE (17:45)
[2019-05-09] MEDS ORDERED: PRINIVIL PO ONE (17:46)
[2019-05-09] MEDS ORDERED: DUONEB (A & A) INH PRN (17:48)
--- NOTE | 2019-05-09 17:48 | PROVIDER DOCUMENTATION ---
This chart was entered by Faviola Diaz Scribe, acting as scribe for Vivek Yang MD. HPI-Respiratory General - General Chief Complaint: Shortness of Breath Stated Complaint: SOB / FEMALE Time Seen by Provider: 05/09/19 16:40 Source: patient, family () Allergies/Adverse Reactions: Patient Allergies Allergy/AdvReac Type Severity Reaction Status Date / Time butorphanol tartrate * Allergy Severe SHORTNESS Verified 04/20/19 07:44 [From Stadol] OF BREATH prochlorperazine edisylate * Allergy Severe SHORTNESS Verified 04/20/19 07:44 [From Compazine] OF BREATH prochlorperazine maleate * Allergy Severe SHORTNESS Verified 04/20/19 07:44 [From Compazine] OF BREATH codeine [Codeine] Allergy Intermediate HIVES Verified 04/20/19 07:44 ondansetron [From ZOFRAN ODT] Allergy Mild VOMITING Verified 04/20/19 07:44 butalbital [From Fioricet] Allergy CHEST PAIN Verified 04/20/19 07:44 caffeine [From Fioricet] Allergy CHEST PAIN Verified 04/20/19 07:44 ketorolac tromethamine * Allergy SWELLING Verified 04/20/19 07:44 [From Toradol] sulfamethoxazole Allergy NAUSEA/VOMI Verified 04/20/19 07:44 [From Bactrim] TING trimethoprim [From Bactrim] Allergy NAUSEA/VOMI Verified 04/20/19 07:44 TING Home Medications: Home Medication List Medication Instructions Recorded Confirmed Last Taken Type Levothyroxine Sodium 75 microgm PO DAILY 12/16/11 04/26/19 07/08/18 10:00 History Lisinopril 40 mg PO DAILY 08/04/12 04/26/19 07/08/18 10:00 History Hydralazine [Apresoline] 50 mg PO TID 01/03/17 04/26/19 07/08/18 18:00 History PRAVAstatin [Pravachol] 40 mg PO HS 03/29/18 04/26/19 07/08/18 18:00 History Sertraline HCl [Zoloft] 100 mg PO DAILY 03/29/18 04/26/19 07/08/18 10:00 History Metformin HCl [Metformin ER 1,000 mg PO BID 07/08/18 04/26/19 07/08/18 15:00 History Osmotic] Multivitamin [Multivitamins] 1 dose PO DAILY 07/08/18 04/26/19 07/08/18 10:00 History Alprazolam [Xanax] 0.5 mg PO Q12HR 10/24/18 04/26/19 Unknown History Promethazine [Phenergan] 25 mg PO Q6H PRN PRN 12/12/18 04/26/19 Unknown History Amlodipine [Norvasc] 10 mg PO DAILY 03/13/19 04/26/19 Unknown History Aspirin EC 325 mg PO DAILY 03/13/19 04/26/19 Unknown History Furosemide [Lasix] 40 mg PO DAILY 03/13/19 04/26/19 Unknown History Pioglitazone [Actos] 30 mg PO DAILY 03/13/19 04/26/19 Unknown History Clonidine [Catapres] 0.1 mg PO BID #60 tab 03/17/19 04/26/19 Unknown Rx Polyethylene Glycol 3350 [Miralax] 17 gm PO DAILY #30 powder, packet 03/17/19 04/26/19 Unknown Rx Spironolactone [Aldactone] 25 mg PO DAILY #120 tab 03/17/19 04/26/19 Unknown Rx - History of Present Illness-Resp Nature of Presenting Problem: Pt is a 74 yowf brought to the ED by her with c/o SOB that occurred when she woke up this am and has gotten worse as the day has gone by. Pt has hx of COPD, Diabetes, hypothyroidism, and seizures. Pt denies use O2 or an inhaler at home. Pt is alert, moderately distressed and has lower leg skin irritation. Quality of Pain: reports: dull, tightness Severity in ED: reports: moderate Onset/Duration: reports: abrupt, this morning Timing: reports: still present, constant, getting worse Cough Quality/Degree: reports: no cough Episode Frequency: chronic episodes Current Respiratory Medication Therapy: Not Used albuterol/atrovent inhale, Not Used steroid inhaler Modifying Factors: worse with: exertion, lying down Associated Symptoms: reports: chest pain/soreness, shortness of breath, short of breath. denies: fever/chills, muscle/bodyaches Similar Symptoms Previously?: Yes (chronic COPD) Recently seen or treated by another doctor?: Yes (seen in ED 04/20/2019) Review of Systems - Adult - REVIEW OF SYSTEMS - ADULT Constitutional: denies: chills, fever Eyes: reports: no symptoms reported Ears, Nose, Mouth & Throat: reports: no symptoms reported Cardiovascular: reports: chest pain. denies: syncope Respiratory: reports: see HPI, shortness of breath Gastrointestinal: denies: abdominal pain, diarrhea, nausea, vomiting Genitourinary: reports: no symptoms reported Musculoskeletal: reports: see HPI, muscle weakness Integumentary: reports: no symptoms reported Neurological: reports: see HPI. denies: syncope Psychiatric: reports: no symptoms reported Endocrine: reports: no symptoms reported Hematologic/Lymphatic: reports: no symptoms reported Allergic/Immunologic: reports: no symptoms reported All Other Systems: Reviewed and Negative Past History - Adult - PAST MEDICAL HISTORY-ADULT Review of Records: reports: Old Records Reviewed, Nursing Assessment Review, Medications Reviewed, Social history reviewed & non-contributory. Major Childhood Illnesses: reports: denies history Cardiovascular: reports: HTN, hyperlipidemia, PVD Respiratory: reports: denies history Gastrointestinal: reports: denies history Obstetrical/Gynecological: reports: denies history Genitourinary: reports: denies history Musculoskeletal: reports: chronic pain, intervertebral disc disease, neck/back injury Neurological: reports: headaches/migraines, Seizures/Epilepsy Psychiatric: reports: denies history Endocrine/Immune: reports: Diabetes, thyroid disorder Other Conditions: reports: denies history Additional History: Frequent visits to the Er for migraines - PRIOR SURGERIES/PROCEDURES Surgical/Procedure History: reports: hysterectomy, joint replacement, other, appendectomy - IMMUNIZATION STATUS Childhood Immunizations: See Nurse Assessment Flu Vaccine: See Nurse Assessment - FAMILY HISTORY Family History: reviewed, not pertinent - SOCIAL HISTORY Smoking: quit greater than 1 year Substance Use: denies Living Situation: family () Physical Exam-General - PHYSICAL EXAM-ADULT Initial Vital Signs Reviewed: Yes (HR 115, Resp 40, O2 71 RA) - CONSTITUTIONAL General Appearance: alert, moderate distress, obese - EYES Eyes: PERRL/EOMI - HEAD, EARS, NOSE, MOUTH & THROAT HENMT: moist mucous membranes - NECK Neck: non-tender, full range of motion, supple - RESPIRATORY Respiratory: respiratory distress - CARDIOVASCULAR Cardiovascular: normal peripheral pulses, tachycardia - GASTROINTESTINAL (ABDOMEN) Abdominal Exam: normal bowel sounds, non tender, soft - MUSCULOSKELETAL Back Exam: normal inspection, no CVA tenderness, no vertebral tenderness Extremity: normal range of motion, non-tender, normal gait, normal inspection - SKIN Integumentary: normal color, normal turgor, pallor - PSYCHIATRIC Psych/Mental Status: normal thought content, normal thought process, oriented x 3, anxious Progress - PLAN OF CARE/RESULTS Progress/Plan/Lab Results: Vital Signs - 8 hr 05/09/19 16:14 05/09/19 16:25 05/09/19 16:35 Temperature 98 F Pulse Rate 115 H 108 H Respiratory Rate 40 H 48 H O2 Sat by Pulse Oximetry 71 L 80 L 05/09/19 17:00 Temperature Pulse Rate Respiratory Rate O2 Sat by Pulse Oximetry 98 Laboratory Results - last 24 hr 05/09/19 05/09/19 05/09/19 16:30 16:30 16:30 WBC RBC Hgb Hct MCV MCH MCHC RDW Std Deviation Plt Count MPV Immature Gran % (Auto) Neut % (Auto) Lymph % (Auto) [place] % (Auto) Eos % (Auto) Baso % (Auto) Immature Gran # (Auto) Neut # (Auto) Lymph # (Auto) [place] # (Auto) Eos # (Auto) Baso # (Auto) Segmented Neutrophils PT INR Specimen Type ARTERIAL Sample Site R BRACHIAL pH 7.37 pCO2 39 pO2 57 L HCO3 22.7 Base Excess -2.5 Oxyhemoglobin 85.0 L* ABG O2 Sat (Calculated) 13.2 L ABG O2 Saturation 90.2 L ABG Carboxyhemoglobin 4.60 H ABG Methemoglobin 1.2 Abhi Test NO A-a O2 Difference 122.0 Total Hemoglobin 11.0 L Lactate 3.50 H Liter Flow 3.0 Blood Gas Modality CANNULA FiO2 % 32.0 Sodium 137 Potassium 3.8 Chloride 100 Carbon Dioxide 21 L Anion Gap 16 BUN 18 Creatinine 0.8 Estimated GFR/1.73 m2 > 60 BUN/Creatinine Ratio 23 Glucose 397 H Calculated Osmolality 292 Calcium 9.3 Magnesium 1.9 Total Bilirubin 0.30 AST 19 ALT 11 Alkaline Phosphatase 63 Creatine Kinase 100 Troponin T High Sens Total Protein 7.7 Albumin 3.9 Globulin 4.0 Albumin/Globulin Ratio 1.0 Plasma Lactate 2.9 H 05/09/19 05/09/19 05/09/19 16:30 16:30 16:30 WBC 14.92 H RBC 4.39 Hgb 9.9 L Hct 34.5 L MCV 78.6 L MCH 22.6 L MCHC 28.7 L RDW Std Deviation 18.2 H Plt Count 373 MPV 10.4 Immature Gran % (Auto) 0.3 Neut % (Auto) 58.6 Lymph % (Auto) 30.9 [place] % (Auto) 7.0 Eos % (Auto) 2.9 Baso % (Auto) 0.3 Immature Gran # (Auto) 0.04 Neut # (Auto) 8.75 H Lymph # (Auto) 4.61 H [place] # (Auto) 1.05 H Eos # (Auto) 0.43 Baso # (Auto) 0.04 Segmented Neutrophils Not Reportable PT 13.3 INR 0.96 Specimen Type Sample Site pH pCO2 pO2 HCO3 Base Excess Oxyhemoglobin ABG O2 Sat (Calculated) ABG O2 Saturation ABG Carboxyhemoglobin ABG Methemoglobin Abhi Test A-a O2 Difference Total Hemoglobin Lactate Liter Flow Blood Gas Modality FiO2 % Sodium Potassium Chloride Carbon Dioxide Anion Gap BUN Creatinine Estimated GFR/1.73 m2 BUN/Creatinine Ratio Glucose Calculated Osmolality Calcium Magnesium Total Bilirubin AST ALT Alkaline Phosphatase Creatine Kinase Troponin T High Sens 42 H Total Protein Albumin Globulin Albumin/Globulin Ratio Plasma Lactate Orders Category Date Time Status Cardiac Monitoring DIRECTED Care 05/09/19 16:23 Completed Kapadia Cath Insertion ORDERED Care 05/09/19 17:28 Active IV Insertion ORDERED Care 05/09/19 16:23 Completed Notify MD of + Sepsis Screen NOW Care 05/09/19 16:23 Completed Notify Physician As Ordered Care 05/09/19 16:23 Completed CHEST-1 VIEW [RAD] Stat Exams 05/09/19 16:23 Taken ABG [RESP] Routine Lab 05/09/19 16:30 Completed BLOOD CULTURE [BLDCUL] Stat Lab 05/09/19 16:54 Ordered CBC WITH DIFF [HEME] Stat Lab 05/09/19 16:30 Completed CK PROFILE [SP CHEM] Stat Lab 05/09/19 16:30 Completed COMPREHENSIVE METABOLIC PANEL [CHEM] Stat Lab 05/09/19 16:30 Completed LACTATE, PLASMA [CHEM] Lab 05/09/19 19:30 Uncollected LACTATE, PLASMA [CHEM] Lab 05/09/19 22:30 Uncollected LACTATE, PLASMA [CHEM] Stat Lab 05/09/19 16:30 Completed MAGNESIUM [CHEM] Stat Lab 05/09/19 16:30 Completed PROTIME WITH INR [COAG] Stat Lab 05/09/19 16:30 Results PTT [COAG] Stat Lab 05/09/19 16:30 Results TROPONIN T HIGH SENSITIVITY Stat Lab 05/09/19 16:30 Completed TROPONIN T HIGH SENSITIVITY Stat Lab 05/09/19 17:38 Ordered URINALYSIS W/POSS RFLX CULT [URINALYSIS] Stat Lab 05/09/19 17:38 Ordered bnp [PRO B-NATRIURETIC PEPTIDE] Stat Lab 05/09/19 17:38 Ordered Albuterol 2.5MG/Ipratrop 0.5MG [Duoneb (A & A)] Med 05/09/19 16:36 Discontinued 6 ml .ROUTE .STK-MED ONE Albuterol 2.5MG/Ipratrop 0.5MG [Duoneb (A & A)] Med 05/09/19 17:09 Discontinued 6 ml INH NOW ONE Furosemide [Lasix] Med 05/09/19 17:25 Discontinued 40 mg IV NOW ONE Aerosol Treatments Stat Oth 05/09/19 17:09 Active Oxygen Device Stat Oth 05/09/19 16:23 Active Result Diagrams: 05/09/19 16:30 05/09/19 16:30 - XRAY 1 XRAY Study: Chest Impression: See EMR Report Departure - Departure Date of Disposition Decision: 05/09/19 Time of Disposition Decision: 17:42 DIAGNOSIS: Heart failure, Hypertension associated with type 2 diabetes mellitus Disposition: ADMITTED INPATIENT 09 Certified Medical Emergency: Emergent Condition: Stable Referrals and Follow-Ups: Vivek Yang MD [Primary Care Provider] - - Critical Care Note This patient required my direct & personal management of CC.: No Attestation - Physician/ AMY Attestation Patient care was provided by Advanced Practice Provider:: No The physician spent face to face time with patient:: Yes Advanced Practice Provider documentation review:: Supervising physician onsite and consulted in the evaluation and care of this patient. The physician did have a face to face encounter with the patient. This chart was documented by the indicated scribe, (Faivola Diaz, Jakob) and accurately reflects the services I performed and decisions made by me, Vivek Yang MD, as attested by the provider's signature.
[2019-05-09] MEDS ORDERED: APRESOLINE IV PRN (17:49)
--- NOTE | 2019-05-09 17:49 | Diag Imaging Result Doc PS360 ---
CHEST-1 VIEW - 05/09/2019 INDICATION: seps COMPARISON: 04/21/2019 FINDINGS: Stable implanted device at the left chest likely a nerve stimulator. There are diffuse bilateral interstitial infiltrates compatible with pneumonia and/or pulmonary edema. Heart size is normal. No pneumothorax or large pleural effusion. IMPRESSION: Diffuse bilateral interstitial infiltrates, indeterminate. Electronically signed by Ru Mendoza 05/09/2019 5:46 PM
[2019-05-09 17:56] LABS: BILIRUBIN URINE NEGATIVE (NEGATIVE); BLOOD URINE SMALL (NEGATIVE); COLOR YELLOW; GLUCOSE URINE >1000 mg/dL (NEGATIVE); KETONE URINE NEGATIVE (NEGATIVE); LEUKOCYTES URINE NEGATIVE (NEGATIVE); NITRITE URINE NEGATIVE (NEGATIVE); PH URINE 6.5; PROTEIN URINE 600 mg/dL (NEGATIVE); SP GRAVITY URINE 1.026; TURBIDITY URINE CLEAR (CLEAR); UROBILINOGEN URINE NORMAL (NORMAL)
[2019-05-09] MEDS ORDERED: VANCOMYCIN IV PER PHARMACY MISC SCH (18:00)
[2019-05-09] MEDS: LASIX IV SCH (18:00)
[2019-05-09] MEDS ORDERED: LEVAQUIN 750 MG/D5W 750 MG/150 ML IVPB IV SCH (18:00)
[2019-05-09] MEDS ORDERED: LOVENOX SUBQ SCH (18:00)
[2019-05-09] MEDS ORDERED: APRESOLINE ONE (18:10)
[2019-05-09] MEDS ORDERED: VANCOMYCIN 1 GM/NS 1 GM/250 ML IVPB IV SCH (18:30)
[2019-05-09 18:38] LABS: UR EPITHELIAL CELLS >10 /HPF (<10); URINE BACTERIA 2+ /HPF
[2019-05-09 18:39] LABS: URINE CASTS GRANULAR PRESENT; URINE CRYSTALS NONE SEEN; URINE YEAST NONE SEEN
[2019-05-09 19:05] LABS: INR 1.01; PROTIME 13.8 Seconds (11.0-16.0)
[2019-05-09 19:06] LABS: PTT 25.3 Seconds (22.3-41.8)
[2019-05-09] MEDS: HUMALOG SUBQ SCH (20:54)
--- NOTE | 2019-05-09 21:20 | HISTORY AND PHYSICAL ---
CHIEF COMPLAINT: Shortness of breath. HISTORY OF PRESENT ILLNESS: The patient is a morbidly obese female who presented to the hospital with increased work of breathing, shortness of breath. Notes that it started this morning when she woke up. It has continued to worsen throughout the day. Does have a history of diabetes, hypertension, hypothyroidism as well as seizures in addition to drug overdoses. She apparently was just recently admitted on 20 of April to [facility] for a probable overdose with benzodiazepine use. She had altered mental status. At the time was placed in the ICU. PAST MEDICAL HISTORY: Significant for: 1. Chronic atrial fibrillation. 2. Type 2 diabetes. 3. Chronic venous stasis ulcerations in her lower extremities with superimposed cellulitis with recent Klebsiella oxytocin and Proteus 4. Morbid obesity. 5. Hypertension. 6. Anemia of chronic disease. 7. Hypothyroidism. 8. Dyslipidemia. 9. Osteoarthritis. 10. Recent head lice. PAST SURGICAL HISTORY: Appendectomy, hysterectomy, shoulder replacement. SOCIAL HISTORY: She lives with her at home. She does have Home Health. Has extremely poor hygiene at home with head lice, bedbugs and has had DHR involved recently as noted on her HPI dated 04/20/2019. ALLERGIES: Stadol, Compazine, codeine, Zofran, Fioricet, tramadol, Bactrim. MEDICATIONS: I do not have a current list of medicines although I would expect it is the same that she was discharged with a few weeks ago that includes Synthroid 75, lisinopril 40, hydralazine 50 t.i.d., Pravachol 40, Zoloft 100, metformin 1000, Xanax 0.5 q.12, Norvasc 10, aspirin 325, Lasix 40, Actos 30, Catapres 0.1, and spironolactone 25. REVIEW OF SYSTEMS: Unobtainable as she currently is on BiPAP. FAMILY HISTORY: Noncontributory. SOCIAL HISTORY: She does not smoke or drink. PHYSICAL EXAMINATION: VITAL SIGNS: Reviewed. Temperature 98 degrees, pulse 115, respiratory 40, currently on BiPAP, O2 saturation initially 71 on room air. Blood pressure is markedly elevated at 237/89. GENERAL: Patient is a morbidly obese female who is in moderate respiratory distress. Currently is on BiPAP. She is morbidly obese. HEENT: Normocephalic. NECK: Supple. CARDIOVASCULAR: Tachycardia. No murmurs. CHEST: Decreased breath sounds bilaterally. ABDOMEN: Soft, obese, nondistended. EXTREMITIES: She has bilateral stasis dermopathy with superimposed cellulitis on her lower extremities. NEUROLOGIC: Unable to truly assess as she is on BiPAP. She is awake and does appear to attempt to follow commands. LABORATORIES: WBCs 14, hemoglobin and hematocrit 9 and 34 with a low MCV/MCH. Oxyhemoglobin 85 on 3 L. Glucose 397. Plasma lactate 2.9. ASSESSMENT: 1. Acute respiratory failure. Given the fact that she was just recently in the hospital, she currently has acute respiratory failure, we are going to place her on antibiotics, Levaquin and vancomycin. We will continue BiPAP. 2. Diabetes. Her blood sugars are elevated. We will use sliding scale insulin. Pattern Accu- Cheks. Certainly may need to consider stopping her Actos if she is still on this although it is highly unlikely contributing to it. 3. Bilateral lower extremities stasis with cellulitis, recently with Klebsiella and Proteus. We will place her back on IV Levaquin as well as vancomycin. 4. Chronic atrial fibrillation. 5. Hypertension. PLAN: We are going to transition her to [facility] to the ICU on BiPAP, oxygen, breathing treatments, insulin and we will follow. cc: Ranulfo Cordova MD MTDD
[2019-05-10] MEDS ORDERED: ZOFRAN IV PRN (00:01)
[2019-05-10] MEDS ORDERED: DUONEB (A & A) INH PRN (00:02)
[2019-05-10] MEDS ORDERED: APRESOLINE IV PRN (00:03)
[2019-05-10] MEDS: DUONEB (A & A) INH SCH ×6 (03:55→19:45)
[2019-05-10] MEDS: LASIX IV SCH ×2 (05:21→17:14)
[2019-05-10] MEDS: HUMALOG SUBQ SCH ×4 (06:17→20:08)
[2019-05-10 06:32] LABS: HEMATOCRIT 28.3 % (37.0-47.0); MCH 22.4 PG (27-31); MCHC 28.3 g/dL (33-37); MCV 79.3 FL (81-99); MPV 11.4 FL (7.4-10.4); RBC 3.57 XMIL (4.2-5.4); WBC 5.84 X1000 (4.8-10.8)
[2019-05-10 07:05] LABS: AGAP 9; ALB/GLOB RATIO 0.9; ALBUMIN 2.9 g/dL (3.5-5.0); ALKALINE PHOSPHATASE 42 U/L (32-104); BUN 20 mg/dL (8-22); CALCIUM 8.4 mg/dL (8.8-10.2); CHLORIDE 102 mmol/L (98-107); COSMO 284; CREATININE 0.8 mg/dL (0.5-0.9); ESTIMATED GFR > 60; GLUCOSE 138 mg/dL (70-104); GOT 15 U/L (10-30); GPT 8 U/L (10-36); POTASSIUM 3.6 mmol/L (3.5-5.1); SODIUM 140 mmol/L (136-145); TCO2 29 mmol/L (25-35); TOTAL BILIRUBIN 0.27 mg/dL (0.20-1.00); TOTAL PROTEIN 6.2 g/dL (6.3-8.3)
[2019-05-10] MEDS: NORVASC PO SCH (08:05)
[2019-05-10] MEDS: TYLENOL PO PRN ×2 (08:35→16:15)
[2019-05-10] MEDS ORDERED: NORVASC PO SCH (09:00)
[2019-05-10] MEDS ORDERED: RID LICE KILLING SHAMPOO TOP ONE ×2 (10:00)
[2019-05-10] MEDS: VANCOMYCIN 2,000 MG in NS 500 ML IV SCH (10:16)
[2019-05-10] MEDS: APRESOLINE PO SCH ×2 (13:26→16:15)
[2019-05-10] MEDS: LEVAQUIN 750 MG/D5W 750 MG/150 ML IVPB IV SCH (17:14)
[2019-05-10] MEDS ORDERED: VANCOMYCIN 2,000 MG in NS 500 ML IV SCH (18:00)
[2019-05-10] MEDS: PRAVACHOL PO SCH (20:08)
[2019-05-11] MEDS: DUONEB (A & A) INH SCH ×7 (00:17→23:15)
[2019-05-11] MEDS: HUMALOG SUBQ SCH ×4 (06:51→20:52)
[2019-05-11] MEDS: ZOLOFT PO SCH (08:23)
[2019-05-11] MEDS: APRESOLINE PO SCH ×3 (08:24→17:25)
[2019-05-11] MEDS: SYNTHROID PO SCH (08:24)
[2019-05-11] MEDS: NORVASC PO SCH (08:24)
[2019-05-11 08:49] LABS: BASO# 0.02 X1000 (0.0-0.2); BASO% 0.3 % (0.0-0.8); EOS# 0.21 X1000 (0.0-0.7); EOS% 3.1 % (0.0-10.0); HEMATOCRIT 29.1 % (37.0-47.0); HEMOGLOBIN 8.2 g/dL (12.0-16.0); LYMPH# 1.28 X1000 (1.2-3.4); MCH 22.2 PG (27-31); MCHC 28.2 g/dL (33-37); MCV 78.9 FL (81-99); MONO# 0.52 X1000 (0.11-0.59); MONO% 7.7 % (1.7-9.3); MPV 11.1 FL (7.4-10.4); NEUT# 4.71 X1000 (1.4-6.5); NEUT% 69.9 % (42.2-75.2); PLT 216 X1000 (130-400); RBC 3.69 XMIL (4.2-5.4); RDW 18.2 % (11.5-14.5); WBC 6.74 X1000 (4.8-10.8)
[2019-05-11 09:24] LABS: CHLORIDE 99 mmol/L (98-107); POTASSIUM 3.5 mmol/L (3.5-5.1); SODIUM 136 mmol/L (136-145)
[2019-05-11 09:25] LABS: AGAP 10; BUN 18 mg/dL (8-22); CALCIUM 8.6 mg/dL (8.8-10.2); COSMO 280; CREATININE 0.9 mg/dL (0.5-0.9); ESTIMATED GFR > 60; GLUCOSE 201 mg/dL (70-104); TCO2 27 mmol/L (25-35)
[2019-05-11] MEDS: TYLENOL PO PRN (09:47)
[2019-05-11] MEDS: VANCOMYCIN 2,000 MG in NS 500 ML IV SCH (10:40)
--- NOTE | 2019-05-11 10:58 | EKG Report ---
Test Performed on : 05/10/2019 10:24:50 PM Test Reason : No order in [place] Blood Pressure : / mmHG Vent. Rate : 097 BPM Atrial Rate : 083 BPM P-R Int : 174 ms QRS Dur : 080 ms QT Int : 494 ms P-R-T Axes : 082 039 143 degrees QTc Int : 627 ms Normal sinus rhythm. with 3 beat run of VT v SVT with aberrant conduction Cannot rule out Anterior infarct (cited on or before 10-MAY-2019) T wave abnormality, consider lateral ischemia Prolonged QT Abnormal ECG When compared with ECG of 10-MAY-2019 22:13, (Unconfirmed) Current undetermined rhythm precludes rhythm comparison, needs review Serial changes of Anterior infarct present Confirmed by John IVEY, Alex Spear ([id number]) on 05/11/2019 6:01:34 PM
--- NOTE | 2019-05-11 10:58 | EKG Report ---
Test Performed on : 05/10/2019 10:13:13 PM Test Reason : No order in MT Blood Pressure : / mmHG Vent. Rate : 085 BPM Atrial Rate : 085 BPM P-R Int : 170 ms QRS Dur : 076 ms QT Int : 478 ms P-R-T Axes : 024 037 141 degrees QTc Int : 568 ms Sinus rhythm. with premature atrial complexes. with aberrant conduction. Cannot rule out Anterior infarct , age undetermined T wave abnormality, consider lateral ischemia Prolonged QT Abnormal ECG No previous ECGs available Confirmed by John IVEY, Alex Spear ([id number]) on 05/11/2019 5:59:50 PM
--- NOTE | 2019-05-11 12:33 | PROGRESS NOTE ---
DATE: 05/11/2019 SUBJECTIVE: Patient has no major complaints. She is looking okay. OBJECTIVE: Vital Signs: Blood pressure 151/75, pulse 91, respirations 25, temperature 97. Cardiovascular: Regular rate and rhythm. Pulmonary: Bilateral breath sounds clear to auscultation. GI: Soft, nontender, nondistended. Bowel sounds are positive. LABORATORY DATA: White count 6, hemoglobin and hematocrit 8 and 29, platelets 216,000. Basic was normal. Blood sugar 235. Chest x-ray from 2 days ago showed dense infiltrates, but she does not look that bad in there right now. PROBLEM LIST: 1. Acute respiratory failure. We will continue antibiotics. She is not on BiPAP right now. I do not even know, I guess they sent her over for pulmonary consult. 2. Type 2 diabetes. We will continue treatment and follow. 3. Venous stasis dermatitis, possible cellulitis. She is on Levaquin and vancomycin. 4. Chronic atrial fibrillation. She seems to be stable. cc: Bassam Smith MD
[2019-05-11] MEDS ORDERED: PHENERGAN PO PRN (13:43)
--- NOTE | 2019-05-11 14:14 | ECHO REPORT ---
ORDER DATE: 05/10/2019 ECHOCARDIOGRAPHIC MEASUREMENTS: 1. Septal thickness 1.5. 2. Left ventricular internal diameter in diastole 5.3. 3. Posterior wall thickness 1.5. 4. Left ventricular internal diameter in systole 3.2. 5. Aortic root 3.4. SUMMARY: 1. Limited echocardiographic study performed. Study is technically difficult due to limited acoustic window quality. 2. Aortic valve is trileaflet and opens normally on 2-dimensional images. Mild mitral annular calcification is demonstrated with trace mitral regurgitation. Tricuspid and pulmonic valves are without evidence of structural abnormality with trace tricuspid regurgitation and trace pulmonic insufficiency. The estimated systolic PA pressure by Doppler is 45 mmHg suggesting mild pulmonary hypertension. The aortic root is normal size. 3. Normal left ventricular chamber size with moderate concentric left hypertrophy is demonstrated. The estimated left ventricular ejection fraction appears to be at least 60%. No regional wall motion abnormalities evident. The left atrium is borderline enlarged. Right atrium and right ventricle are normal in size with grossly preserved right ventricular systolic function. 4. No pericardial effusion. 5. Appearance of inferior vena cava suggests normal central venous pressure. cc: MD Ranulfo Hughes MD
[2019-05-11] MEDS: LOVENOX SUBQ SCH (17:25)
[2019-05-11] MEDS: LEVAQUIN 750 MG/D5W 750 MG/150 ML IVPB IV SCH (17:25)
[2019-05-11] MEDS: CATAPRES PO SCH (20:51)
[2019-05-11] MEDS: PRAVACHOL PO SCH (20:52)
[2019-05-11] MEDS: GLUCOPHAGE XR PO SCH (20:52)
[2019-05-11] MEDS: XANAX PO SCH (20:53)
[2019-05-12] MEDS: DUONEB (A & A) INH SCH ×6 (03:44→23:55)
[2019-05-12] MEDS: HUMALOG SUBQ SCH ×3 (06:24→17:19)
[2019-05-12 07:46] LABS: BASO# 0.02 X1000 (0.0-0.2); BASO% 0.3 % (0.0-0.8); EOS# 0.21 X1000 (0.0-0.7); EOS% 3.4 % (0.0-10.0); HEMATOCRIT 29.6 % (37.0-47.0); HEMOGLOBIN 8.5 g/dL (12.0-16.0); IMM GRAN# 0.02 X1000 (0.0-0.04); IMM GRAN% 0.3 % (0.0-0.5); LYMPH# 1.18 X1000 (1.2-3.4); LYMPH% 19.2 % (20.5-51.1); MCH 22.6 PG (27-31); MCHC 28.7 g/dL (33-37); MCV 78.7 FL (81-99); MONO% 8.1 % (1.7-9.3); MPV 10.5 FL (7.4-10.4); NEUT# 4.21 X1000 (1.4-6.5); NEUT% 68.7 % (42.2-75.2); PLT 231 X1000 (130-400); RBC 3.76 XMIL (4.2-5.4); RDW 18.4 % (11.5-14.5); WBC 6.14 X1000 (4.8-10.8)
[2019-05-12 08:28] LABS: AGAP 11; BUN 18 mg/dL (8-22); CALCIUM 8.6 mg/dL (8.8-10.2); CHLORIDE 100 mmol/L (98-107); COSMO 283; CREATININE 0.8 mg/dL (0.5-0.9); ESTIMATED GFR > 60; GLUCOSE 193 mg/dL (70-104); POTASSIUM 3.8 mmol/L (3.5-5.1); SODIUM 138 mmol/L (136-145); TCO2 27 mmol/L (25-35)
--- NOTE | 2019-05-12 08:43 | Diag Imaging Result Doc PS360 ---
CHEST-PORTABLE - 05/12/2019 INDICATION: Hypoxia COMPARISON: 05/09/2019 FINDINGS: Stable mild cardiomegaly and pulmonary vascular congestion. There has been slight improvement in the diffuse bilateral interstitial infiltrates/pulmonary edema. No dense consolidations otherwise. IMPRESSION: Slight improvement in the extensive interstitial pulmonary edema. Electronically signed by Ru Mendoza 05/12/2019 8:40 AM
[2019-05-12] MEDS: VANCOMYCIN 2,000 MG in NS 500 ML IV SCH (09:44)
[2019-05-12] MEDS: NORVASC PO SCH (09:45)
[2019-05-12] MEDS: MIRALAX PO SCH (09:45)
[2019-05-12] MEDS: XANAX PO SCH ×2 (09:45→20:07)
[2019-05-12] MEDS: ASPIRIN EC PO SCH (09:45)
[2019-05-12] MEDS: GLUCOPHAGE XR PO SCH ×2 (09:45→20:06)
[2019-05-12] MEDS: SYNTHROID PO SCH (09:46)
[2019-05-12] MEDS: THERA M PLUS PO SCH (09:46)
[2019-05-12] MEDS: CATAPRES PO SCH ×2 (09:46→20:07)
[2019-05-12] MEDS: ZOLOFT PO SCH (09:46)
[2019-05-12] MEDS: APRESOLINE PO SCH ×3 (09:46→18:12)
[2019-05-12] MEDS: PRINIVIL PO SCH (09:46)
[2019-05-12] MEDS: ALDACTONE PO SCH (09:46)
[2019-05-12] MEDS: LASIX PO SCH (09:47)
--- NOTE | 2019-05-12 15:11 | PROGRESS NOTE ---
DATE: 05/12/2019 SUBJECTIVE: The patient has no major complaints. She looks like she is breathing a little bit better. OBJECTIVE: Vital Signs: Blood pressure is 185/55, heart rate 95, respiratory rate 17, temperature 98.3 degrees, saturating 98% on room air. Cardiovascular: Regular rate and rhythm. Pulmonary: Bilateral breath sounds. Clear to auscultation. GI: Soft, nontender, nondistended. Bowel sounds are positive. LABORATORY DATA: White count 6, hemoglobin and hematocrit 8 and 29, platelets 231,000. Basic was normal. Sugar 256. PROBLEM LIST: 1. Acute respiratory failure due to pneumonia, interstitial edema. We can continue treatment. Oxygen is stable. Will continue to follow. 2. Type 2 diabetes. Will continue diabetic medication. That should be fine. 3. Venous stasis dermatitis cellulitis. We will continue antibiotics. She is currently on vancomycin and Levaquin. Will get a Wound Care consult, and follow. 4. Hypertension, stable. 5. Disposition. I think she is doing okay, but I do not really know how she is going to be able to go back home. She may need rehab. cc: Bassam Smith MD
[2019-05-12] MEDS: LANTUS INSULIN SUBQ SCH (17:19)
[2019-05-12] MEDS: LEVAQUIN 750 MG/D5W 750 MG/150 ML IVPB IV SCH (18:12)
[2019-05-12] MEDS: LOVENOX SUBQ SCH (18:12)
[2019-05-12] MEDS: PRAVACHOL PO SCH (20:07)
[2019-05-13] MEDS: HUMALOG SUBQ SCH ×4 (02:15→18:24)
[2019-05-13] MEDS: DUONEB (A & A) INH SCH ×6 (03:43→22:56)
[2019-05-13 08:18] LABS: BASO# 0.02 X1000 (0.0-0.2); BASO% 0.3 % (0.0-0.8); EOS# 0.28 X1000 (0.0-0.7); EOS% 4.8 % (0.0-10.0); HEMATOCRIT 28.6 % (37.0-47.0); HEMOGLOBIN 8.1 g/dL (12.0-16.0); LYMPH# 1.18 X1000 (1.2-3.4); LYMPH% 20.2 % (20.5-51.1); MCH 22.4 PG (27-31); MCHC 28.3 g/dL (33-37); MONO# 0.41 X1000 (0.11-0.59); NEUT# 3.96 X1000 (1.4-6.5); NEUT% 67.7 % (42.2-75.2); PLT 250 X1000 (130-400); RBC 3.62 XMIL (4.2-5.4); RDW 18.5 % (11.5-14.5); WBC 5.85 X1000 (4.8-10.8)
[2019-05-13 08:27] LABS: AGAP 10; BUN 23 mg/dL (8-22); CALCIUM 8.5 mg/dL (8.8-10.2); CHLORIDE 100 mmol/L (98-107); COSMO 280; CREATININE 0.8 mg/dL (0.5-0.9); ESTIMATED GFR > 60; GLUCOSE 177 mg/dL (70-104); MAGNESIUM 2.2 mg/dL (1.5-2.7); POTASSIUM 4.2 mmol/L (3.5-5.1); SODIUM 136 mmol/L (136-145); TCO2 26 mmol/L (25-35)
[2019-05-13] MEDS ORDERED: NORVASC PO SCH (09:00)
[2019-05-13] MEDS: ZOLOFT PO SCH (10:07)
[2019-05-13] MEDS: GLUCOPHAGE XR PO SCH ×2 (10:07→23:41)
[2019-05-13] MEDS: MIRALAX PO SCH (10:07)
[2019-05-13] MEDS: APRESOLINE PO SCH ×3 (10:07→23:42)
[2019-05-13] MEDS: ALDACTONE PO SCH (10:07)
[2019-05-13] MEDS: NORVASC PO SCH (10:07)
[2019-05-13] MEDS: THERA M PLUS PO SCH (10:07)
[2019-05-13] MEDS: ASPIRIN EC PO SCH (10:07)
[2019-05-13] MEDS: PRINIVIL PO SCH (10:08)
[2019-05-13] MEDS: XANAX PO SCH ×2 (10:08→23:42)
[2019-05-13] MEDS: CATAPRES PO SCH (10:08)
[2019-05-13] MEDS: SYNTHROID PO SCH (10:08)
[2019-05-13] MEDS: LANTUS INSULIN SUBQ SCH (10:12)
[2019-05-13] MEDS: LASIX PO SCH (10:12)
[2019-05-13 10:26] LABS: BANDS 2 % (0-1); HYPOCHROM 2+; LYMPHS 12 % (21-51); MONO 2 % (1-9); SEGS 84 % (42-75)
[2019-05-13] MEDS: VANCOMYCIN 1,700 MG in NS 250 ML IV SCH (11:47)
--- NOTE | 2019-05-13 15:14 | PROGRESS NOTE ---
DATE: 05/13/2019 SUBJECTIVE: The patient has no complaints. OBJECTIVE: Vital Signs: Blood pressure is 149/51, heart rate of 69, respiratory rate of 23, temperature 98 degrees, saturating 100% on 2 L. Cardiovascular: Regular rate and rhythm. Pulmonary: Bilateral breath sounds. Clear to auscultation. GI: Soft, nontender, nondistended. Bowel sounds are positive. LABORATORY DATA: White count 5.8, hemoglobin and hematocrit 8 and 28, platelets 250,000. Basic was normal. PROBLEM LIST: 1. Acute respiratory failure. She seems to be doing better. Will continue to wean oxygen. Her x-ray yesterday looked improved, but still had extensive interstitial edema. 2. Type 2 diabetes. Her blood sugars are stable on her current regimen, below 200 on average. 3. Venous stasis dermatitis. Will continue wound care, and follow. 4. Hypertension. Will continue treatment, and follow closely. 5. Disposition. I am not quite sure if she can go back home. I think she will need rehab. We will get Physical Therapy involved with ambulation, and follow. cc: Bassam Smith MD
[2019-05-13] MEDS: LOVENOX SUBQ SCH (18:24)
[2019-05-13] MEDS: LEVAQUIN PO SCH (18:24)
[2019-05-13] MEDS: LASIX IV SCH ×2 (18:40→23:42)
[2019-05-13] MEDS: PRAVACHOL PO SCH (23:41)
[2019-05-14] MEDS: HUMALOG SUBQ SCH ×5 (01:11→22:22)
[2019-05-14] MEDS: CATAPRES PO SCH ×3 (01:11→22:22)
[2019-05-14] MEDS: DUONEB (A & A) INH SCH ×6 (03:32→23:20)
[2019-05-14 08:30] LABS: CALCIUM 8.9 mg/dL (8.8-10.2); CREATININE 1.1 mg/dL (0.5-0.9); POTASSIUM 4.4 mmol/L (3.5-5.1)
[2019-05-14] MEDS: ASPIRIN EC PO SCH (08:39)
[2019-05-14] MEDS: NORVASC PO SCH (08:39)
[2019-05-14] MEDS: ALDACTONE PO SCH (08:39)
[2019-05-14] MEDS: ZOLOFT PO SCH (08:39)
[2019-05-14] MEDS: LASIX IV SCH (08:39)
[2019-05-14] MEDS: APRESOLINE PO SCH ×3 (08:39→18:38)
[2019-05-14] MEDS: XANAX PO SCH ×2 (08:39→22:22)
[2019-05-14] MEDS: PRINIVIL PO SCH (08:39)
[2019-05-14] MEDS: GLUCOPHAGE XR PO SCH ×2 (08:39→22:22)
[2019-05-14] MEDS: THERA M PLUS PO SCH (08:39)
[2019-05-14] MEDS: SYNTHROID PO SCH (08:39)
[2019-05-14] MEDS: LANTUS INSULIN SUBQ SCH (08:40)
[2019-05-14] MEDS: MIRALAX PO SCH (08:40)
[2019-05-14] MEDS: VANCOMYCIN 1,700 MG in NS 250 ML IV SCH (12:00)
[2019-05-14] MEDS: TYLENOL PO PRN (14:21)
--- NOTE | 2019-05-14 17:44 | PROGRESS NOTE ---
DATE: 05/14/2019 SUBJECTIVE: Patient has no major complaints. OBJECTIVE: Vital Signs: Blood pressure 103/55, heart rate of 76, respiratory rate of 16, temperature 98.5 degrees. Cardiovascular: Regular rate and rhythm. Pulmonary: Bilateral breath sounds clear to auscultation. Gastrointestinal: Soft, nontender, nondistended. Bowel sounds are positive. LABORATORY DATA: Creatinine is up to 1.1. Rest of her numbers look okay. Clinically, she looks better though. ASSESSMENT/PLAN: 1. Acute respiratory failure. She seems to be doing better. She is on 2 L. 2. Interstitial edema. We will switch her to oral Lasix and follow. 3. Type 2 diabetes, stable on her current medications. 4. Hypertension stable. DISPOSITION: I think we are looking at trying to get her into a rehab locally. I think R is involved. We will continue to monitor with social work about what to do with her long-term. With her insurance she will need PT and OT notes and continue to follow. Considering we may be able to deescalate her antibiotic regimen, she is on vancomycin and Levaquin, I will probably just stop her vancomycin and leave her on Levaquin for the time being. cc: Bassam Smith MD
[2019-05-14] MEDS: LEVAQUIN PO SCH (18:38)
[2019-05-14] MEDS: LOVENOX SUBQ SCH (18:38)
[2019-05-14] MEDS: PRAVACHOL PO SCH (22:22)
[2019-05-15] MEDS: DUONEB (A & A) INH SCH ×5 (02:58→19:45)
[2019-05-15] MEDS: HUMALOG SUBQ SCH ×4 (07:24→22:32)
[2019-05-15] MEDS: MIRALAX PO SCH (08:35)
[2019-05-15] MEDS: PRINIVIL PO SCH (08:35)
[2019-05-15] MEDS: ASPIRIN EC PO SCH (08:35)
[2019-05-15] MEDS: LANTUS INSULIN SUBQ SCH (08:36)
[2019-05-15] MEDS: ALDACTONE PO SCH (08:36)
[2019-05-15] MEDS: APRESOLINE PO SCH ×3 (08:36→17:51)
[2019-05-15] MEDS: XANAX PO SCH ×2 (08:36→22:31)
[2019-05-15] MEDS: ZOLOFT PO SCH (08:36)
[2019-05-15] MEDS: SYNTHROID PO SCH (08:36)
[2019-05-15] MEDS: GLUCOPHAGE XR PO SCH ×2 (08:36→22:31)
[2019-05-15] MEDS: NORVASC PO SCH (08:36)
[2019-05-15] MEDS: THERA M PLUS PO SCH (08:36)
[2019-05-15] MEDS: CATAPRES PO SCH ×2 (08:37→22:31)
[2019-05-15 09:25] LABS: BASO# 0.02 X1000 (0.0-0.2); BASO% 0.3 % (0.0-0.8); EOS# 0.25 X1000 (0.0-0.7); EOS% 4.2 % (0.0-10.0); HEMATOCRIT 29.4 % (37.0-47.0); HEMOGLOBIN 8.5 g/dL (12.0-16.0); LYMPH# 1.28 X1000 (1.2-3.4); LYMPH% 21.5 % (20.5-51.1); MCHC 28.9 g/dL (33-37); MCV 79.7 FL (81-99); MONO# 0.43 X1000 (0.11-0.59); MONO% 7.2 % (1.7-9.3); MPV 11.3 FL (7.4-10.4); NEUT# 3.98 X1000 (1.4-6.5); NEUT% 66.8 % (42.2-75.2); PLT 259 X1000 (130-400); RBC 3.69 XMIL (4.2-5.4); RDW 18.7 % (11.5-14.5); WBC 5.96 X1000 (4.8-10.8)
[2019-05-15 10:14] LABS: CALCIUM 8.6 mg/dL (8.8-10.2); POTASSIUM 5.1 mmol/L (3.5-5.1)
--- NOTE | 2019-05-15 11:18 | Diag Imaging Result Doc PS360 ---
EXAM: CHEST-PORTABLE HISTORY: hypoxia TECHNIQUE: Single view COMPARISON: 05/12/2019 FINDINGS: The lungs are well expanded. The heart is mildly enlarged. There is vascular distention. Right granuloma. No pleural effusions identified. There is a left-sided pacemaker. IMPRESSION: Cardiomegaly with pulmonary edema. Electronically signed by Yonatan Scott 05/15/2019 11:16 AM
--- NOTE | 2019-05-15 15:26 | PROGRESS NOTE ---
DATE: 05/15/2019 SUBJECTIVE: Patient seems to be doing okay. No major issues overnight. OBJECTIVE: Blood pressure 143/40, heart rate of 68, respiratory rate 20, temperature 98.1 degrees, 100% on 2 L. Cardiovascular regular rate and rhythm. Pulmonary: Bilateral breath sounds clear to auscultation. GI: Was soft, nontender, nondistended. Bowel sounds are positive. ASSESSMENT: 1. Acute respiratory failure. She seems to be doing better. X-ray shows vascular distention, but overall improvement. 2. Interstitial edema. We will continue Lasix. 3. Type 2 diabetes, is stable currently. DISPOSITION: I think we are looking at rehab options. So far she seems to be doing better. She is on oral antibiotics. Her Levaquin was day 3 so we will continue to follow closely. cc: Bassam Smith MD
[2019-05-15] MEDS: LOVENOX SUBQ SCH (17:51)
[2019-05-15] MEDS: LEVAQUIN PO SCH (17:51)
[2019-05-15] MEDS: PRAVACHOL PO SCH (22:32)
[2019-05-16] MEDS: DUONEB (A & A) INH SCH ×7 (00:07→23:15)
[2019-05-16] MEDS: TYLENOL PO PRN (01:37)
[2019-05-16] MEDS: HUMALOG SUBQ SCH ×4 (06:05→21:26)
[2019-05-16] MEDS: XANAX PO SCH ×2 (09:58→21:26)
[2019-05-16] MEDS: APRESOLINE PO SCH ×3 (09:58→17:17)
[2019-05-16] MEDS: MIRALAX PO SCH (09:59)
[2019-05-16] MEDS: ALDACTONE PO SCH (09:59)
[2019-05-16] MEDS: PRINIVIL PO SCH (09:59)
[2019-05-16] MEDS: NORVASC PO SCH (09:59)
[2019-05-16] MEDS: CATAPRES PO SCH ×2 (09:59→21:26)
[2019-05-16] MEDS: GLUCOPHAGE XR PO SCH ×2 (09:59→21:26)
[2019-05-16] MEDS: ZOLOFT PO SCH (09:59)
[2019-05-16] MEDS: SYNTHROID PO SCH (09:59)
[2019-05-16] MEDS: ASPIRIN EC PO SCH (09:59)
[2019-05-16] MEDS: THERA M PLUS PO SCH (09:59)
[2019-05-16] MEDS: LANTUS INSULIN SUBQ SCH (10:00)
--- NOTE | 2019-05-16 16:23 | PROGRESS NOTE ---
DATE: 05/16/2019 SUBJECTIVE: Patient has no major complaints. OBJECTIVE: Blood pressure 159/56, heart rate of 62, respiratory rate 18, temperature 97.5 degrees, 100% on 2 L.Cardiovascular: Regular rate and rhythm. Pulmonary: Bilateral breath sounds. Clear to auscultation. Gastrointestinal: Soft, nontender, nondistended. Bowel sounds are positive. Extremities: No clubbing or cyanosis. Lymphatic: She still has chronic venous changes. LABORATORY DATA: No new data today. PROBLEM LIST: 1. Acute respiratory failure due to pneumonia versus pulmonary edema. She is improving. Still on a little bit of oxygen. Her last chest x-ray was stable without clear effusions and she had interstitial edema. 2. Interstitial edema. She is still on diuretics. We will continue lasix. We stopped her diuretics because of some renal insufficiency. 3. Type 2 diabetes. Appears to be stable. DISPOSITION: Anticipate discharge soon. She is a rehab candidate, so we will continue to monitor. cc: Bassam Smith MD MTDD
[2019-05-16] MEDS: LOVENOX SUBQ SCH (17:17)
[2019-05-16] MEDS: LEVAQUIN PO SCH (17:17)
[2019-05-16] MEDS: PRAVACHOL PO SCH (21:26)
[2019-05-17] MEDS: DUONEB (A & A) INH SCH ×6 (03:43→23:08)
[2019-05-17] MEDS: HUMALOG SUBQ SCH ×4 (06:08→21:24)
[2019-05-17] MEDS: TYLENOL PO PRN (06:16)
[2019-05-17] MEDS ORDERED: RID LICE KILLING SHAMPOO TOP ONE (10:00)
[2019-05-17] MEDS: CATAPRES PO SCH ×2 (10:03→20:41)
[2019-05-17] MEDS: ZOLOFT PO SCH (10:03)
[2019-05-17] MEDS: PRINIVIL PO SCH (10:03)
[2019-05-17] MEDS: NORVASC PO SCH (10:03)
[2019-05-17] MEDS: MIRALAX PO SCH (10:03)
[2019-05-17] MEDS: THERA M PLUS PO SCH (10:03)
[2019-05-17] MEDS: APRESOLINE PO SCH ×3 (10:03→18:03)
[2019-05-17] MEDS: ASPIRIN EC PO SCH (10:04)
[2019-05-17] MEDS: SYNTHROID PO SCH (10:04)
[2019-05-17] MEDS: ALDACTONE PO SCH (10:04)
[2019-05-17] MEDS: GLUCOPHAGE XR PO SCH ×2 (10:04→20:41)
[2019-05-17] MEDS: XANAX PO SCH ×2 (10:04→20:41)
[2019-05-17] MEDS: LANTUS INSULIN SUBQ SCH (10:06)
[2019-05-17 10:49] LABS: AGAP 11; BUN 39 mg/dL (8-22); CALCIUM 9.3 mg/dL (8.8-10.2); CHLORIDE 93 mmol/L (98-107); COSMO 267; CREATININE 0.9 mg/dL (0.5-0.9); ESTIMATED GFR > 60; GLUCOSE 146 mg/dL (70-104); POTASSIUM 5.7 mmol/L (3.5-5.1); SODIUM 127 mmol/L (136-145); TCO2 23 mmol/L (25-35)
[2019-05-17] MEDS: LOKELMA POWDER PACKET PO SCH (14:45)
[2019-05-17] MEDS ORDERED: NS 1,000 ML IV ONE (16:34)
--- NOTE | 2019-05-17 16:57 | PROGRESS NOTE ---
DATE: 05/17/2019 SUBJECTIVE: Patient has no major complaints. OBJECTIVE: Vital signs: Blood pressure 163/46, heart rate of 63, respiratory rate of 20, temperature 98.8 degrees, 100% on 2 L. Cardiovascular: Regular rate and rhythm. Pulmonary: Bilateral breath sounds. Clear to auscultation. GI: Soft, nontender, nondistended. Bowel sounds are positive. LABORATORY: Sodium is down to 127 today and a potassium of 5.7, not sure if that is related to Lasix. PROBLEM LIST: 1. Respiratory failure due to pneumonia, pulmonary edema. Overall she is improving. Last chest x-ray showed improvement. 2. Interstitial edema, presumably associated with a diastolic heart failure. Her EF is intact. Probably hold any further diuresis at least for the time being. She is also fairly hyponatremic and hyperkalemic, which I am not sure if that is related to adrenal insufficiency. In any case, patient is stable. Anticipate we are going to go home or to rehab. She should be stable for rehab soon, hopefully in the next day or so, as soon as tomorrow. I do not know where we are with availability of a bed. We will discuss with Social Work tomorrow. cc: Bassam Smith MD
[2019-05-17] MEDS: LEVAQUIN PO SCH (18:03)
[2019-05-17] MEDS: LOVENOX SUBQ SCH (18:03)
[2019-05-17] MEDS: PRAVACHOL PO SCH (20:41)
[2019-05-18] MEDS: TYLENOL PO PRN (01:14)
[2019-05-18] MEDS: DUONEB (A & A) INH SCH ×6 (03:47→23:14)
[2019-05-18] MEDS: HUMALOG SUBQ SCH ×4 (06:15→20:04)
[2019-05-18] MEDS: ALDACTONE PO SCH (08:29)
[2019-05-18] MEDS: ASPIRIN EC PO SCH (08:29)
[2019-05-18] MEDS: APRESOLINE PO SCH ×3 (08:29→17:05)
[2019-05-18] MEDS: NORVASC PO SCH (08:29)
[2019-05-18] MEDS: ZOLOFT PO SCH (08:29)
[2019-05-18] MEDS: XANAX PO SCH ×2 (08:29→20:03)
[2019-05-18] MEDS: THERA M PLUS PO SCH (08:29)
[2019-05-18] MEDS: SYNTHROID PO SCH (08:29)
[2019-05-18] MEDS: GLUCOPHAGE XR PO SCH ×2 (08:29→20:03)
[2019-05-18] MEDS: CATAPRES PO SCH ×2 (08:29→20:03)
[2019-05-18] MEDS: LOKELMA POWDER PACKET PO SCH (08:30)
[2019-05-18] MEDS: LANTUS INSULIN SUBQ SCH (08:30)
[2019-05-18] MEDS: MIRALAX PO SCH (08:30)
[2019-05-18 10:43] LABS: CALCIUM 9.5 mg/dL (8.8-10.2); POTASSIUM 5.4 mmol/L (3.5-5.1)
[2019-05-18] MEDS ORDERED: SAMSCA PO ONE (15:28)
--- NOTE | 2019-05-18 16:12 | PROGRESS NOTE ---
DATE: 05/18/2019 SUBJECTIVE: The patient has no major complaints. OBJECTIVE: Vital Signs: Blood pressure is 162/51, heart rate 71, respiratory rate of 15, temperature 98.2 degrees. Cardiovascular: Regular rate and rhythm. Pulmonary: Bilateral breath sounds clear to auscultation. Gastrointestinal: Abdomen soft, nontender, nondistended. Bowel sounds are positive. Lower extremities: She still has some chronic venous changes on her lower extremities. LABORATORY DATA: Sodium is still low. We had stopped diuretics yesterday. Sodium 128, potassium still 5.4, BUN and creatinine of 38 and 1; that was despite some hydration. Urine electrolytes more consistent with SIADH, than other. PROBLEM LIST: 1. Respiratory failure. She seems to be doing okay. 2. Interstitial edema. We stopped her diuretics, but her breathing has improved. 3. Hyponatremia. It is not clear what the etiology is. She not on an angiotensin-converting enzyme or an angiotensin-receptor joseph. She is still on Lokelma. We will check her cortisol levels and follow. DISPOSITION: I think she will probably be able to head home here soon. Continue to monitor. I may give her a little bit of [place] to aid in some diuresis. cc: Bassam Smith MD
[2019-05-18] MEDS: LOVENOX SUBQ SCH (17:05)
[2019-05-18] MEDS: LEVAQUIN PO SCH (17:06)
[2019-05-18] MEDS: PRAVACHOL PO SCH (20:03)
[2019-05-19] MEDS: DUONEB (A & A) INH SCH ×3 (03:53→11:31)
[2019-05-19] MEDS: HUMALOG SUBQ SCH ×2 (06:04→12:00)
[2019-05-19 08:36] LABS: AGAP 12; BUN 29 mg/dL (8-22); CALCIUM 9.5 mg/dL (8.8-10.2); CHLORIDE 99 mmol/L (98-107); COSMO 275; CREATININE 0.9 mg/dL (0.5-0.9); ESTIMATED GFR > 60; GLUCOSE 119 mg/dL (70-104); POTASSIUM 5.1 mmol/L (3.5-5.1); SODIUM 134 mmol/L (136-145); TCO2 23 mmol/L (25-35)
[2019-05-19 09:11] LABS: BASO# 0.01 X1000 (0.0-0.2); BASO% 0.2 % (0.0-0.8); EOS% 1.7 % (0.0-10.0); HEMATOCRIT 31.8 % (37.0-47.0); HEMOGLOBIN 9.6 g/dL (12.0-16.0); IMM GRAN# 0.02 X1000 (0.0-0.04); IMM GRAN% 0.3 % (0.0-0.5); LYMPH% 16.6 % (20.5-51.1); MCHC 30.2 g/dL (33-37); MCV 76.3 FL (81-99); MONO# 0.61 X1000 (0.11-0.59); MONO% 10.1 % (1.7-9.3); NEUT# 4.28 X1000 (1.4-6.5); NEUT% 71.1 % (42.2-75.2); PLT 273 X1000 (130-400); RBC 4.17 XMIL (4.2-5.4); RDW 18.1 % (11.5-14.5); WBC 6.02 X1000 (4.8-10.8)
[2019-05-19 11:54] VITALS: BP 155/43
[2019-05-19] MEDS: MIRALAX PO SCH (11:58)
[2019-05-19] MEDS: CATAPRES PO SCH (11:58)
[2019-05-19] MEDS: GLUCOPHAGE XR PO SCH (11:58)
[2019-05-19] MEDS: LOKELMA POWDER PACKET PO SCH (11:58)
[2019-05-19] MEDS: APRESOLINE PO SCH ×3 (11:59→17:01)
[2019-05-19] MEDS: THERA M PLUS PO SCH (11:59)
[2019-05-19] MEDS: ASPIRIN EC PO SCH (11:59)
[2019-05-19] MEDS: ZOLOFT PO SCH (11:59)
[2019-05-19] MEDS: SYNTHROID PO SCH (11:59)
[2019-05-19] MEDS: LANTUS INSULIN SUBQ SCH (11:59)
[2019-05-19] MEDS: XANAX PO SCH (11:59)
[2019-05-19] MEDS: NORVASC PO SCH (11:59)
[2019-05-19] MEDS: TYLENOL PO PRN (12:13)
--- NOTE | 2019-05-19 15:43 | DISCHARGE SUMMARY ---
ADMISSION DATE: 05/09/2019 DISCHARGE DATE: 05/19/2019 PRIMARY CARE PROVIDER: Dr. Yang. CONSULTATIONS: None. PERTINENT PROCEDURES: Limited echo showed an EF of 60%. DISCHARGE DIAGNOSES: 1. Acute respiratory failure secondary to pneumonia and interstitial edema, resolved. Patient is saturating well on room air. 2. Interstitial edema. Diuretics have been stopped. She is now oxygenating well on room air. Limited echo shows a normal ejection fraction. 3. Mild hyponatremia, resolved. 4. Venous stasis dermatitis, cellulitis, chronic. Continue wound care and antibiotics. 5. Pneumonia. Continue antibiotics. 6. Hypertension, stable. 7. Type 2 diabetes. Continue with pattern blood sugars and home regimen. 8. Chronic atrial fibrillation, stable. HOSPITAL COURSE: Briefly, Ms. Jean is a 74-year-old female who is morbidly obese, who presented to the hospital ED for increased work of breathing. Workup at that time at [place] showed that she was in acute respiratory failure. She was treated with broad-spectrum antibiotics for probable pneumonia and placed on BiPAP and placed in [facility] ICU for further evaluation and treatment. Her chest x-ray also showed some interstitial edema for which she underwent a limited echo that showed normal EF, presumed some diastolic dysfunction. She also had some mild pulmonary hypertension. She was diuresed appropriately. Wound Care was continued to her chronic lower extremity cellulitis dermatitis that had grew out Klebsiella and Proteus on previous visit. Fortunately, Ms Jean's breathing has improved. She is now oxygenating well on room air. She has been working with Physical Therapy and will be discharged to rehab at [facility] today. VITAL SIGNS: At time of discharge, temperature is 99.4 degrees, heart rate 73, respirations 19, blood pressure 155/43, O2 is 95% on room air. DISCHARGE DIET: Diabetic with Glucerna shakes. DISCHARGE MEDICATIONS: 1. Xanax 0.5 mg p.o. q.12 hours. 2. Actos 30 mg p.o. daily. 3. Apresoline 50 mg p.o. t.i.d. 4. Aspirin 325 mg p.o. daily. 5. Lasix 40 mg p.o. daily. 6. Levothyroxine 175 mcg p.o. daily. 7. Lisinopril 40 mg p.o. daily. 8. Metformin 1000 mg p.o. b.i.d. 9. Multivitamins 1 dose p.o. daily. 10. Norvasc 10 mg p.o. daily. 11. Phenergan 25 mg p.o. q.6 hours p.r.n. 12. Pravachol 40 mg p.o. at bedtime. 13. Zoloft 100 mg p.o. daily. 14. Aldactone 25 mg p.o. daily. 15. Catapres 0.1 mg p.o. b.i.d. 16. MiraLAX 17 g p.o. daily. FOLLOWUP: Ms. Jean is being discharged to [facility]. She is take all medications as prescribed. She will return to the ED or call 911 for any worsening of symptoms. Dictated by CHICA Woodard for Bassam Smith MD cc: MD Vivek Marshall MD
--- NOTE | 2019-05-19 21:50 | PROGRESS NOTE ---
DATE: 05/19/2019 On the day of discharge, she looks well. No major complaints. She is breathing comfortably. Plan is to discharge her rehab today. Now that being said, she has been on antibiotics which has been Levaquin; that was started on the . So, she has had all told 7 days of antibiotics. Her x-ray is clear, so I did continue her antibiotics for another 7 days. DISCHARGE MEDICATIONS: Her discharge medications are as follows. We stopped her Actos because of swelling. Hydralazine 50 t.i.d., aspirin 325 daily, Lasix 40 daily, Synthroid 75 daily, metformin 1 g b.i.d., lisinopril 40 daily, multivitamin daily, Norvasc 10 daily. Be careful with her lower extremity edema. Phenergan, Pravachol 40 daily, Zoloft 100 daily, Xanax 0.5 q.12, Aldactone 25 daily, Catapres 0.1 b.i.d., Lantus 10 units daily, and Levaquin 500 daily for another 7 days. DISCHARGE CONDITION: Stable. A 32-minute discharge. Please see other data per summary per CHICA Woodard. cc: Bassam Smith MD
== END 2019-05-19 17:13 | DRG 189 ==
LOC: P.ED 16:10 → SUATTDRO 19:21 → ICU 19:21 → 3N 05-11 15:15
PROVIDERS: ATTEND Internal Medicine